=== PATIENT | female | born 1930 | race Caucasian/White ===

== ENCOUNTER 2016-12-19 16:19 | Emergency (ER) | payer MEDICARE, BC ==
[2016-12-19 20:37] VITALS: BP 138/69
--- NOTE | 2016-12-23 12:00 | ER ---
DATE SEEN: 12/19/2016 HISTORY OF PRESENT ILLNESS: This pleasant 86-year-old woman was walking, tripped on steps, and she fell down at home and struck her face. She was carrying a pillow at that time and she adroitly threw the pillow in front of her face so she did not smash her face and her hand. She has superficial abrasions to her knees. Did not lose consciousness. She has past medical history of using blood thinners, clopidogrel, for CVAs. PAST MEDICAL HISTORY: History of hypertension, dyslipidemia, Zocor-induced skeletal myopathy-was seen approximately less than a week ago and diagnosed by the keen observation of Dr. 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 She has glaucoma and atherosclerotic vascular disease and coronary artery disease. The patient denies compromised vision. Denies weakness upper and lower extremities, headache, neck stiffness. No shortness of breath, cough, chest pain, irregular heartbeat, abdominal discomfort, gastrointestinal symptoms, or symptoms except has occasional incontinence and denies frequency or urgency. Denies musculoskeletal complaints except for the abrasion to the knees after the fall. She has also mild hip discomfort. This has been chronic. MEDICATIONS: 1. Plavix 75 mg daily. 2. Vitamin D. 3. Carboxymethylcellulose (Refresh 0.5%). 4. Acetaminophen. 5. Latanoprost (Xalatan 0.005% ophthalmic solution). 6. Lasix. 7. Colace p.r.n. 8. Timolol-Timoptic 0.25% ophthalmic solution. 9. Oxybutynin for bladder irritability. 10.Bernard-3 fatty acids. 11.Multivitamins. 12.Lutein. 13.Metformin. 14.Tolterodine tartrate (Detrol) for spasm of bladder. PHYSICAL EXAMINATION: GENERAL: Alert woman. She is attended by her . Both have a great relationship. HEENT: She has prominent ecchymosis from the right nasal root to the infraorbital region. No nasal crepitus or nasal deviation. No intranasal bleeding. No turbinate swelling or asymmetry of the columella or nasal bone. No infraorbital tenderness or step-off. No crepitus. No EOMs compromised. Eye grounds normal appearance except for age. No hemorrhage or exudate. Vision is good. No diplopia. No tenderness of the upper brow. Hearing is slightly decreased but good. Pharynx without abnormality. No disruption of the teeth. No TMJ discomfort. No mandible discomfort. NECK: No bruits. No masses. No cervical adenopathy. LUNGS: Clear to auscultation with occasional rales at bases posterior. HEART: S1, S2. No irregular rate or rhythm. ABDOMEN: Soft. No guarding. No abdominal discomfort. Mild increased abdominal girth. No CVA percussion tenderness. MUSCULOSKELETAL: No cervical, thoracic, or lumbar spine pain. No spinous process or paraspinal muscle spasm. Gait slightly halting not unusual for age. Romberg negative. No past pointing. No pronator drift. No decreased muscle strength. Deep tendon reflexes upper extremities, 1+, absent lower extremities (even triceps are 1+). ASSESSMENT: 1. Contusion of face. CT performed to make sure she did not have a bleed in the brain with the use of clopidogrel. The CT was negative except for small vessel disease noted in the white matter. 2. Hypertension. 3. Facial ecchymoses secondary to subcutaneous bleed. 4. Mild tenderness to root of the nose. No evidence for fracture. 5. Dyslipidemia. 6. 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 7. Obesity. 8. Diabetes. PLAN: Follow up with doctor in a week. Use ibuprofen or Tylenol. The patient was seen at 1900 hours. There was a delay in seeing the patient since there was a cardiac arrest in which a patient was intubated and another critical patient. /[id number] ABRAHAN/ELIAZAR
== END 2016-12-19 20:10 | disposition home or self-care (01) ==
LOC: FB.ED 16:19
DX: S05.11XA Contusion of eyeball and orbital tissues, right eye, initial encounter (principal); I10 Essential (primary) hypertension; E78.5 Hyperlipidemia, unspecified; I25.10 Atherosclerotic heart disease of native coronary artery without angina pectoris; Z79.899 Other long term (current) drug therapy; W10.9XXA Fall (on) (from) unspecified stairs and steps, initial encounter
CPT/HCPCS: 70450; 99283

== ENCOUNTER 2017-01-05 07:50 | Observation (INO) | payer MEDICARE, BC ==
--- NOTE | 2017-01-05 08:33 | EDM.PDOC ---
ED HPI GENERAL MEDICAL PROBLEM - General Chief Complaint: Lower Extremity Injury/Pain Stated Complaint: FALL Time Seen by Provider: 01/05/17 07:50 Source of Information: Reports: Patient, EMS, Family History Limitations: Reports: No Limitations - History of Present Illness INITIAL COMMENTS - FREE TEXT/NARRATIVE: 86 y.o.w.f with multiple medical issues came to the ed after she fell over a carpet this am, unable to get up. Her , who has parkinson disease call 911. On arrival to the ed, pt was not able to ambulate due to pain and swelling of her left lower leg. Pt fell in the past. No N/V/D or palpitations or any other acute medical issue. Onset: Today Onset Date: 01/05/17 Onset Time: 06:00 Duration: Hour(s): Location: Reports: Head, Lower Extremity, Left Quality: Reports: Ache, Burning, Dull Severity: Mild Improves with: Reports: Cold Therapy, Rest Worsens with: Reports: Movement Context: Reports: Trauma (fall) Associated Symptoms: Reports: Headaches, Weakness left knee Pain Score (Numeric/FACES): 8 - Related Data Allergies Allergy/AdvReac Type Severity Reaction Status Date / Time No Known Allergies Allergy Verified 01/05/17 10:39 Home Meds: Home Meds Cholecalciferol (Vitamin D3) [Vitamin D3] 1,000 units PO DAILY 12/16/15 [History ] Clopidogrel [Plavix] 75 mg PO DAILY 12/16/15 [History] Docusate Sodium [Colace] 100 mg PO BID 12/16/15 [History] Furosemide [Lasix] 10 mg PO DAILY 12/16/15 [History] Latanoprost [Xalatan 0.005% Ophth Soln] 1 drop EYEBOTH BEDTIME 12/16/15 [History ] Multivitamin [One Daily] 1 tab PO DAILY 12/16/15 [History] [place]-3 Fatty Acids/Fish Oil [Fish Oil Concentrate Softgel] 720 mg PO DAILY 08/25 [History] Oxybutynin 2.5 mg PO BID 12/16/15 [History] Timolol Maleate [Timoptic 0.25% Ophth Soln] 1 drop EYEBOTH DAILY 12/16/15 [ History] metFORMIN [Glucophage] 500 mg PO DAILY 12/16/15 [History] Acetaminophen [Acetaminophen Extra Strength] 1,000 mg PO 08,14,21 01/05/17 [ History] Ubidecarenone [Co Q-10] 100 mg PO DAILY 01/05/17 [History] atorvaSTATin [Lipitor] 10 mg PO DAILY 01/05/17 [History] Past Medical History HEENT History: Reports: Cataract, Impaired Vision Cardiovascular History: Reports: High Cholesterol, Hypertension FLARE MAKER History: Reports: Other (See Below) Other OB/BYN History: four C section Musculoskeletal History: Reports: Arthritis 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 Neurological History: Reports: TIA Endocrine/Metabolic History: Reports: Diabetes, Type II Oncologic (Cancer) History: Reports: Breast, Other (See Below) Other Oncologic History: bladder - Infectious Disease History Infectious Disease History: Reports: Chicken Pox, Measles, Mumps - Past Surgical History HEENT Surgical History: Reports: Cataract Surgery, Oral Surgery GI Surgical History: Reports: Colonoscopy, Other (See Below) Female Surgical History: Reports: Mastectomy, Other (See Below) Other Female Surgeries/Procedures: bladder cancer Oncologic Surgical History: Reports: Biopsy of Breast, Mastectomy Social & Family History - Tobacco Use Smoking Status *Q: Never Smoker Second Hand Smoke Exposure: No - Caffeine Use Caffeine Use: Reports: Coffee - Recreational Drug Use Recreational Drug Use: No Review of Systems - Review of Systems Review Of Systems: See Below Constitutional: Reports: Weakness Eyes: Reports: No Symptoms Ears: Reports: No Symptoms Nose: Reports: No Symptoms Mouth/Throat: Reports: No Symptoms Respiratory: Reports: No Symptoms Cardiovascular: Reports: No Symptoms GI/Abdominal: Reports: No Symptoms Genitourinary: Reports: No Symptoms Musculoskeletal: Reports: Muscle Pain (left tibia) Skin: Reports: Bruising (SQ hematoma left lower leg), Other (ecchymosis) Neurological: Reports: No Symptoms Psychiatric: Reports: No Symptoms ED EXAM, GENERAL - Physical Exam Exam: See Below Exam Limited By: No Limitations General Appearance: Alert, WD/WN, Mild Distress, Obese Eye Exam: Bilateral Eye: Normal Inspection Ears: Normal External Exam Ear Exam: Bilateral Ear: Auricle Normal Nose: Normal Inspection Throat/Mouth: Normal Inspection, Normal Lips Head: Other (SQ hematoma occ. suly) Neck: Normal Inspection, Supple Respiratory/Chest: No Respiratory Distress, Lungs Clear Cardiovascular: Normal Peripheral Pulses, Regular Rate, Rhythm, No Edema Peripheral Pulses: 1+: Femoral (L), Femoral (R) GI/Abdominal: Normal Bowel Sounds, Soft, Non-Tender (Female) Exam: Deferred Rectal (Female) Exam: Deferred Back Exam: Normal Inspection, Decreased Range of Motion Extremities: Leg Pain (left ) Neurological: Alert, Oriented, CN II-XII Intact, Normal Cognition, Other ( unable to ambulate) Psychiatric: Normal Affect, Normal Mood Skin Exam: Ecchymosis (left low leg, latas pect) Lymphatic: No Adenopathy Course - Vital Signs Text/Narrative:: 86 y.o.w.f with multiple medical issues came to the ed after she fell over a carpet this am, unable to get up. Her , who has parkinson disease call 911. On arrival to the ed, pt was not able to ambulate due to pain and swelling of her left lower leg. Pt fell in the past. No N/V/D or palpitations or any other acute medical issue. Pt is on Plavix PE: SQ hematoma post suly, SQ hematoma left lower leg 15 cm X 9 cm, no open wounds Labs: WBC 12.1 BUN/CE elevated BUN 17 Cr 0.5 Imaging: CT head: SQ hematoma of occiput. Left T/F NAD Impression:Mechanical fall, SQ hematom mid occiput and left lower leg, unable to ambulate Tx: Motrin, ICE bag Reexam: Improved 10.15am Consultation : accepted pt for admission. OT/PT and SW consultations to be ordered Plan: Admit for OBS Last Recorded V/S: Last Vital Signs Temp 36.7 C 01/05/17 07:50 Pulse 80 01/05/17 10:30 Resp 18 01/05/17 10:30 BP 143/80 H 01/05/17 10:30 Pulse Ox 96 01/05/17 10:30 - Orders/Labs/Meds Orders: Active Orders 24 hr Category Date Time Status Patient Status [ADT] Routine ADT 01/05/17 10:08 Active Cooling Warming Measures [RC] .PRN Care 01/05/17 08:25 Active Oxygen Therapy [RC] PRN Care 01/05/17 10:08 Active Up With Assistance [RC] ASDIRECTED Care 01/05/17 10:08 Active Vital Signs [RC] 04,08,12,16,20,00 Care 01/05/17 10:08 Active Consult to Physical Therapy [PT Evaluation and Cons 01/05/17 10:15 Active Treatment] [CONS] Routine Consult to Leadership Recruiter [CONS] Routine Cons 01/05/17 10:15 Active OT Evaluation and Treatment [CONS] Routine Cons 01/05/17 10:15 Active Consistent Carbohydrate Diet [DIET] Diet 01/05/17 Breakfast Ordered Head wo Cont [CT] Stat Exams 01/05/17 08:50 Taken Acetaminophen/HYDROcodone [Parish 325-5 MG] Med 01/05/17 10:08 Active 1 tab PO Q4H PRN Ibuprofen [Motrin] Med 01/05/17 10:08 Active 600 mg PO Q6H PRN Ice Bag [Ice Therapy] [OM.PC] Routine Oth 01/05/17 08:25 Ordered Resuscitation Status Routine Resus Stat 01/05/17 10:08 Ordered Medication Orders Hydrocodone Bitart/Acetaminophen (Par[place] 325-5 Mg) 1 tab PO Q4H PRN PRN Reason: Pain (moderate 4-6) Ibuprofen (Motrin) 600 mg PO Q6H PRN PRN Reason: Pain (mild 1-3) Last Admin: 01/05/17 10:26 Dose: 600 mg Labs: Laboratory Tests 01/05/17 01/05/17 01/05/17 Range/Units 08:50 08:50 08:50 WBC 12.1 H (4.5-12.0) X10-3/uL RBC 4.72 (3.23-5.20) x10(6)uL Hgb 15.3 (11.5-15.5) g/dL Hct 44.7 (30.0-51.3) % MCV 94.8 (80-96) fL MCH 32.5 (27.7-33.6) pg MCHC 34.3 (32.2-35.4) g/dL RDW 12.5 (11.5-15.5) % Plt Count 235 (125-369) X10(3)uL MPV 7.5 (7.4-10.4) fL Neut % (Auto) 76.8 (46-82) % Lymph % (Auto) 11.0 L (13-37) % [place] % (Auto) 8.0 (4-12) % Eos % (Auto) 4 (1.0-5.0) % Baso % (Auto) 0 (0-2) % Neut # (Auto) 9.3 H (1.6-8.3) # Lymph # (Auto) 1.3 (0.6-5.0) # [place]ick # (Auto) 1.0 (0.0-1.3) # Eos # (Auto) 0.5 (0.0-0.8) # Baso # (Auto) 0.0 (0.0-0.2) # PT 10.4 (8.7-11.1) INR 1.03 (0.89-1.13) Sodium 137 (135-145) mmol/L Potassium 3.9 (3.5-5.3) mmol/L Chloride 103 (100-110) mmol/L Carbon Dioxide 26 (23-29) mmol/L BUN 17 (8-23) mg/dL Creatinine 0.5 L (0.6-1.3) mg/dL Est Cr Clr Drug Dosing 62.07 mL/min Estimated GFR (MDRD) > 60 (>60) BUN/Creatinine Ratio 34.0 H (9-20) Glucose 112 (80-116) mg/dL Calcium 8.9 (8.6-10.2) mg/dL B-Natriuretic Peptide (0-100) pg/mL 01/05/17 Range/Units 08:50 WBC (4.5-12.0) X10-3/uL RBC (3.23-5.20) x10(6)uL Hgb (11.5-15.5) g/dL Hct (30.0-51.3) % MCV (80-96) fL MCH (27.7-33.6) pg MCHC (32.2-35.4) g/dL RDW (11.5-15.5) % Plt Count (125-369) X10(3)uL MPV (7.4-10.4) fL Neut % (Auto) (46-82) % Lymph % (Auto) (13-37) % Maverick % (Auto) (4-12) % Eos % (Auto) (1.0-5.0) % Baso % (Auto) (0-2) % Neut # (Auto) (1.6-8.3) # Lymph # (Auto) (0.6-5.0) # Maverick # (Auto) (0.0-1.3) # Eos # (Auto) (0.0-0.8) # Baso # (Auto) (0.0-0.2) # PT (8.7-11.1) INR (0.89-1.13) Sodium (135-145) mmol/L Potassium (3.5-5.3) mmol/L Chloride (100-110) mmol/L Carbon Dioxide (23-29) mmol/L BUN (8-23) mg/dL Creatinine (0.6-1.3) mg/dL Est Cr Clr Drug Dosing mL/min Estimated GFR (MDRD) (>60) BUN/Creatinine Ratio (9-20) Glucose (80-116) mg/dL Calcium (8.6-10.2) mg/dL B-Natriuretic Peptide 68 (0-100) pg/mL Meds: Medications Generic Name Dose Route Start Last Admin Trade Name Freq PRN Reason Stop Dose Admin Hydrocodone Bitart/Acetaminophen 1 tab 01/05/17 10:08 [place] 325-5 Mg PO Q4H PRN Pain (moderate 4-6) Ibuprofen 600 mg 01/05/17 10:08 01/05/17 10:26 Motrin PO 600 mg Q6H PRN Administration Pain (mild 1-3) Departure - Departure Time of Disposition: 12:00 Disposition: Refer to Observation Condition: Fair Clinical Impression: Hematoma Fall Qualifiers: Encounter type: initial encounter Qualified Code(s): W19.XXXA - Unspecified fall, initial encounter - Discharge Information - My Orders Last 24 Hours: My Active Orders 01/05/17 08:25 Cooling Warming Measures [RC] .PRN Ice Bag [Ice Therapy] [OM.PC] Routine 01/05/17 08:50 Head wo Cont [CT] Stat 01/05/17 10:08 Patient Status [ADT] Routine Oxygen Therapy [RC] PRN Up With Assistance [RC] ASDIRECTED Vital Signs [RC] 04,08,12,16,20,00 Acetaminophen/HYDROcodone [Par[place] 325-5 MG] 1 tab PO Q4H PRN Ibuprofen [Motrin] 600 mg PO Q6H PRN Resuscitation Status Routine 01/05/17 10:15 Consult to Physical Therapy [PT Evaluation and Treatment] [CONS] Routine Consult to Leadership Recruiter [CONS] Routine OT Evaluation and Treatment [CONS] Routine 01/05/17 Breakfast Consistent Carbohydrate Diet [DIET] - Assessment/Plan Last 24 Hours: My Active Orders 01/05/17 08:25 Cooling Warming Measures [RC] .PRN Ice Bag [Ice Therapy] [OM.PC] Routine 01/05/17 08:50 Head wo Cont [CT] Stat 01/05/17 10:08 Patient Status [ADT] Routine Oxygen Therapy [RC] PRN Up With Assistance [RC] ASDIRECTED Vital Signs [RC] 04,08,12,16,20,00 Acetaminophen/HYDROcodone [Parish 325-5 MG] 1 tab PO Q4H PRN Ibuprofen [Motrin] 600 mg PO Q6H PRN Resuscitation Status Routine 01/05/17 10:15 Consult to Physical Therapy [PT Evaluation and Treatment] [CONS] Routine Consult to Leadership Recruiter [CONS] Routine OT Evaluation and Treatment [CONS] Routine 01/05/17 Breakfast Consistent Carbohydrate Diet [DIET]
[2017-01-05] MEDS ORDERED: Acetaminophen/HYDROcodone 325-5 MG Tab PO PRN (10:08)
[2017-01-05] MEDS: Ibuprofen 600 MG Tab PO PRN ×2 (10:26→21:52)
--- NOTE | 2017-01-05 11:28 | CR ---
INDICATION: Fell, swelling proximal lateral tibia and fibula. LEFT TIBIA AND FIBULA: Frontal and lateral views of the tibia and fibula revealed soft tissue swelling overlying the pretibial area anterolaterally. Degenerative changes are noted at the knee joint with loss of medial femorotibial joint space suggested. A definite acute fracture or dislocation was not identified. Somewhat demineralized appearance of the bony structures suggests the possibility of osteoporosis - correlate clinically. Degenerative changes are noted in the forefoot. IMPRESSION: 1. No acute fracture or dislocation. 2. Osteoporosis. 3. DJD. MTDD
--- NOTE | 2017-01-05 11:33 | CR ---
INDICATION: Pain, fall, swelling. LEFT KNEE: Three views of the left knee revealed moderate osteoarthritic changes with lateral patellofemoral joint space loss and medial femorotibial joint space loss. Hypertrophic changes are prominent at the medial femorotibial joint space intercondylar spines, moderate at the intercondylar notch, and moderate at the patellofemoral joint. Arterial calcifications are noted incidentally. A definite fracture or dislocation was not identified. IMPRESSION: 1. No acute fracture or dislocation. 2. Osteoarthritis. 3. ASD. MTDD
[2017-01-05] MEDS ORDERED: FLU Vacc QS 2017-18 (36mos UP)/PF 60 MCG/0.5 ML Syringe IM ONE (11:37)
--- NOTE | 2017-01-05 17:16 | PCM.HP ---
H&P History of Present Illness - General Date of Service: 01/05/17 Source of Information: Patient History Limitations: Reports: No Limitations - History of Present Illness Initial Comments - Free Text/Narative: This is 86-year-old female patient states she got up this morning. She went to the bathroom and then she just says she fell. She had her had and her left knee. She was not able to get up so they called the [facility]. has Parkinson's so he's not much of certified surgical tech/first assistant according to her. And was brought her in. She had a head CT was reported by the ER doc is negative, knee x-ray that was negative. She states she couldn't walk afterwards so she was admitted for observation. She lies been ill. She denies nasal congestion, sore throat, chest pain, palpitations, shortness of breath, diarrhea, abdominal pain, dysuria, pyuria, hematuria left knee Pain Score (Numeric/FACES): 8 - Related Data Allergies/Adverse Reactions: Allergies Allergy/AdvReac Type Severity Reaction Status Date / Time No Known Allergies Allergy Verified 01/05/17 10:39 Home Medications: Home Meds Cholecalciferol (Vitamin D3) [Vitamin D3] 1,000 units PO DAILY 12/16/15 [History ] Clopidogrel [Plavix] 75 mg PO DAILY 12/16/15 [History] Docusate Sodium [Colace] 100 mg PO BID 12/16/15 [History] Furosemide [Lasix] 10 mg PO DAILY 12/16/15 [History] Latanoprost [Xalatan 0.005% Ophth Soln] 1 drop EYEBOTH BEDTIME 12/16/15 [History ] Multivitamin [One Daily] 1 tab PO DAILY 12/16/15 [History] Max-3 Fatty Acids/Fish Oil [Fish Oil Concentrate Softgel] 720 mg PO DAILY 08/25 [History] Oxybutynin 2.5 mg PO BID 12/16/15 [History] Timolol Maleate [Timoptic 0.25% Ophth Soln] 1 drop EYEBOTH DAILY 12/16/15 [ History] metFORMIN [Glucophage] 500 mg PO DAILY 12/16/15 [History] Acetaminophen [Acetaminophen Extra Strength] 1,000 mg PO 08,14,21 01/05/17 [ History] Dorzolamide [Trusopt 2% Ophth Soln] 1 drop EYEBOTH BID 01/05/17 [History] Lutein 10 mg PO DAILY 01/05/17 [History] Propylene Glycol/Peg 400 [Systane 0.3-0.4% Eye Drops] 1 drop EYEBOTH BID [History] Ubidecarenone [Co Q-10] 100 mg PO DAILY 01/05/17 [History] atorvaSTATin [Lipitor] 10 mg PO DAILY 01/05/17 [History] Past Medical History HEENT History: Reports: Cataract, Impaired Vision Cardiovascular History: Reports: High Cholesterol, Hypertension Gastrointestinal History: Reports: Hiatal Hernia Genitourinary History: Reports: Urinary Incontinence STUNT PERFORMER History: Reports: Other (See Below) Other OB/BYN History: four C section Musculoskeletal History: Reports: Arthritis 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 Neurological History: Reports: TIA Endocrine/Metabolic History: Reports: Diabetes, Type II Oncologic (Cancer) History: Reports: Breast, Other (See Below) Other Oncologic History: bladder - Infectious Disease History Infectious Disease History: Reports: Chicken Pox, Measles, Mumps - Past Surgical History HEENT Surgical History: Reports: Cataract Surgery, Oral Surgery GI Surgical History: Reports: Colonoscopy, Other (See Below) Female Surgical History: Reports: Mastectomy, Other (See Below) Other Female Surgeries/Procedures: bladder cancer Oncologic Surgical History: Reports: Biopsy of Breast, Mastectomy Social & Family History - Family History Family Medical History: Noncontributory - Tobacco Use Smoking Status *Q: Never Smoker Second Hand Smoke Exposure: No - Caffeine Use Caffeine Use: Reports: Coffee - Recreational Drug Use Recreational Drug Use: No H&P Review of Systems - Review of Systems: Review Of Systems: See Below General: Reports: Weakness HEENT: Reports: No Symptoms Pulmonary: Reports: No Symptoms Cardiovascular: Reports: No Symptoms Gastrointestinal: Reports: No Symptoms Genitourinary: Reports: No Symptoms Musculoskeletal: Reports: Joint Swelling Skin: Reports: Bruising (From Plavix) Psychiatric: Reports: No Symptoms Neurological: Reports: Difficulty Walking Hematologic/Lymphatic: Reports: No Symptoms Immunologic: Reports: No Symptoms Exam - Exam Exam: See Below - Vital Signs Vital Signs: Last Vital Signs Temp 98.0 F 01/05/17 07:50 Pulse 80 01/05/17 10:30 Resp 18 01/05/17 10:30 BP 143/80 H 01/05/17 10:30 Pulse Ox 96 01/05/17 10:30 Weight: 151 lb 8 oz - Exam General: Alert, Oriented, Cooperative HEENT: Hearing Intact, Mucosa Moist & [place], Posterior Pharynx Clear, TMs Clear Neck: Supple, Trachea Midline Lungs: Clear to Auscultation, Normal Respiratory Effort. No: Crackles, Rales, Rhonchi Cardiovascular: Regular Rate, Regular Rhythm, Normal S1, Normal S2. No: Systolic Murmur, Diastolic Murmur GI/Abdominal Exam: Normal Bowel Sounds, Soft, Non-Tender, No Distention, No Abnormal Bruit, No Mass Back Exam: Normal Inspection, Full Range of Motion Extremities: Other (Left knee has some pain in palpation. Pain with range of motion.) Skin: Ecchymosis Neurological: Normal Speech, Normal Tone Neuro Extensive - Mental Status: Alert, Oriented x3, Normal Mood/Affect, Normal Cognition Psychiatric: Alert, Normal Affect, Normal Mood - Patient Data Result Diagrams: 01/05/17 08:50 01/05/17 08:50 *Q Meaningful Use (ADM) - VTE *Q VTE Criteria *Q: - Stroke *Q Stroke Criteria *Q: - AMI *Q AMI Criteria *Q: - Problem List (1) Contusion of left knee SNOMED Code(s): 77466235, 140598836 ICD Code: S80.02XA - CONTUSION OF LEFT KNEE, INITIAL ENCOUNTER Status: Acute Current Visit: Yes (2) Fall SNOMED Code(s): 1304321, 220301788 ICD Code: W19.XXXA - UNSPECIFIED FALL, INITIAL ENCOUNTER Status: Acute Current Visit: Yes Qualifiers: Encounter type: initial encounter Qualified Code(s): W19.XXXA - Unspecified fall, initial encounter Problem List Initiated/Reviewed/Updated: Yes Orders Last 24hrs: Medication Orders Hydrocodone Bitart/Acetaminophen ([place] 325-5 Mg) 1 tab PO Q4H PRN PRN Reason: Pain (moderate 4-6) Last Admin: 01/05/17 14:50 Dose: 1 tab Ibuprofen (Motrin) 600 mg PO Q6H PRN PRN Reason: Pain (mild 1-3) Last Admin: 01/05/17 10:26 Dose: 600 mg Assessment/Plan Comment:: 1. Admit for observation. 2. Hold medications until pharmacy can go over them. Does not think she needs tonight. 3. Control her pain. 4. OT/PT. 5. leadite worker did see her in regards to assisted living for them. 6. Reviewed labs with no UA was done so that will be done.
[2017-01-06 07:35] VITALS: BP 122/67
--- NOTE | 2017-01-06 08:12 | PCM.PN ---
- General Info Date of Service: 01/06/17 Admission Dx/Problem (Free Text): Patient states she feels good other than a little left knee pain. She is able to get up and walk with her walker. No chest pain, shortness of breath, dysuria , pyuria, hematuria - Patient Data Vitals - Most Recent: Last Vital Signs Temp 97.7 F 01/06/17 07:34 Pulse 76 01/06/17 07:34 Resp 16 01/06/17 07:34 BP 122/67 01/06/17 07:34 Pulse Ox 95 01/06/17 07:34 Weight - Most Recent: 151 lb 8 oz I&O - Last 24 Hours: Intake & Output 01/05/17 01/06/17 01/06/17 22:59 06:59 14:59 Output Total 200 Balance -200 Lab Results Last 24 Hours: Laboratory Results - last 24 hr 01/05/17 Range/Units 20:40 Urine Color Yellow (YELLOW) Urine Appearance Slightly cloudy (CLEAR) Urine pH 6.0 (5.0-6.5) Ur Specific [place] 1.015 (1.010-1.025) Urine Protein Negative (NEGATIVE) mg/dL Urine Glucose (UA) Normal (NEGATIVE) mg/dL Urine Ketones Negative (NEGATIVE) mg/dL Urine Occult Blood Large H (NEGATIVE) Urine Nitrite Negative (NEGATIVE) Urine Bilirubin Negative (NEGATIVE) Urine Urobilinogen Normal (NEGATIVE) mg/dL Ur Leukocyte Esterase Small H (NEGATIVE) Urine RBC 5-10 (0) Urine WBC 0-5 (0) Ur Squamous Epith Cells Few H (NS,R,O) Urine Bacteria Few H (NS) Med Orders - Current: Current Medications Hydrocodone Bitart/Acetaminophen ([place] 325-5 Mg) 1 tab PO Q4H PRN PRN Reason: Pain (moderate 4-6) Last Admin: 01/05/17 14:50 Dose: 1 tab Ibuprofen (Motrin) 600 mg PO Q6H PRN PRN Reason: Pain (mild 1-3) Last Admin: 01/05/17 21:52 Dose: 600 mg - Exam General: Alert, Oriented, Cooperative Lungs: Normal Respiratory Effort Extremities: Other (Left knee has some swelling and some pain on palpation.) Neurological: Normal Gait (With a walker.) Psy/Mental Status: Alert, Normal Affect, Normal Mood - Problem List & Annotations (1) Contusion of left knee SNOMED Code(s): 96197326, 583502187 Code(s): S80.02XA - CONTUSION OF LEFT KNEE, INITIAL ENCOUNTER Status: Acute Current Visit: Yes (2) Fall SNOMED Code(s): 0143834, 742839195 Code(s): W19.XXXA - UNSPECIFIED FALL, INITIAL ENCOUNTER Status: Acute Current Visit: Yes Qualifiers: Encounter type: initial encounter Qualified Code(s): W19.XXXA - Unspecified fall, initial encounter - Problem List Review Problem List Initiated/Reviewed/Updated: Yes - Plan Plan:: 1. Discharge to home today with PT/OT and home health.
--- NOTE | 2017-01-06 08:20 | PCM.DCSUM1 ---
Discharge Summary - Hospital Course Free Text/Narrative:: Hospital course-her urine shows a little bit hematuria. She is on Plavix. She denies dysuria, pyuria, hematuria. No white cells or leukocytes in the urine. Patient had the left knee pain. Initially she could walk but later on she was able to get up and walk to the bathroom and then down the torres with a walker. Discharge to home with home health, PT/OT. I encouraged her to look for assisted living. Recheck her in 7-10 days with a UA. Brief History: This is 86-year-old female patient states she got up this morning. She went to the bathroom and then she just says she fell. She had her had and her left knee. She was not able to get up so they called the [facility]. 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 And was brought her in. She had a head CT was reported by the ER doc is negative, knee x -ray that was negative. She states she couldn't walk afterwards so she was admitted for observation. She lies been ill. She denies nasal congestion, sore throat, chest pain, palpitations, shortness of breath, diarrhea, abdominal pain , dysuria, pyuria, hematuria - Discharge Data Discharge Date: 01/06/17 Discharge Disposition: Home, W Home Health Agency 06 Condition: Good - Discharge Diagnosis/Problem(s) (1) Contusion of left knee SNOMED Code(s): 64883237, 417226834 ICD Code: S80.02XA - CONTUSION OF LEFT KNEE, INITIAL ENCOUNTER Status: Acute Current Visit: Yes (2) Fall SNOMED Code(s): 2903781, 975106378 ICD Code: W19.XXXA - UNSPECIFIED FALL, INITIAL ENCOUNTER Status: Acute Current Visit: Yes Qualifiers: Encounter type: initial encounter Qualified Code(s): W19.XXXA - Unspecified fall, initial encounter (3) Microscopic hematuria SNOMED Code(s): 499225611 ICD Code: R31.29 - OTHER MICROSCOPIC HEMATURIA Status: Acute Current Visit: Yes - Patient Instructions Diet: Diabetic Diet Activity: As Tolerated Driving: Do Not Drive Showering/Bathing: May Shower Notify Provider of: Increased Pain Other/Special Instructions: 1. Recheck with Dr. Clio 7-10 days with a UA. 2. Home health, PT, OT for strengthening, coordination training, ADL training, home safety, med management. - Discharge Plan Prescriptions/Med Rec: traMADol [Ultram] 50 mg PO Q6H PRN #40 tab PRN Reason: Pain Home Medications: Home Meds Cholecalciferol (Vitamin D3) [Vitamin D3] 1,000 units PO DAILY 12/16/15 [History ] Clopidogrel [Plavix] 75 mg PO DAILY 12/16/15 [History] Docusate Sodium [Colace] 100 mg PO BID 12/16/15 [History] Furosemide [Lasix] 10 mg PO DAILY 12/16/15 [History] Latanoprost [Xalatan 0.005% Ophth Soln] 1 drop EYEBOTH BEDTIME 12/16/15 [History ] Multivitamin [One Daily] 1 tab PO DAILY 12/16/15 [History] [place]-3 Fatty Acids/Fish Oil [Fish Oil Concentrate Softgel] 720 mg PO DAILY 08/25 [History] Oxybutynin 2.5 mg PO BID 12/16/15 [History] Timolol Maleate [Timoptic 0.25% Ophth Soln] 1 drop EYEBOTH DAILY 12/16/15 [ History] metFORMIN [Glucophage] 500 mg PO DAILY 12/16/15 [History] Acetaminophen [Acetaminophen Extra Strength] 1,000 mg PO 08,14,21 01/05/17 [ History] Dorzolamide [Trusopt 2% Ophth Soln] 1 drop EYEBOTH BID 01/05/17 [History] Lutein 10 mg PO DAILY 01/05/17 [History] Propylene Glycol/Peg 400 [Systane 0.3-0.4% Eye Drops] 1 drop EYEBOTH BID [History] Ubidecarenone [Co Q-10] 100 mg PO DAILY 01/05/17 [History] atorvaSTATin [Lipitor] 10 mg PO DAILY 01/05/17 [History] traMADol [Ultram] 50 mg PO Q6H PRN #40 tab 01/06/17 [Rx] Forms: ED Department Discharge Referrals: Jose Miguel Merino MD [Primary Care Provider] - - Discharge Summary/Plan Comment DC Time >30 min.: No - Patient Data Vitals - Most Recent: Last Vital Signs Temp 97.7 F 01/06/17 07:34 Pulse 76 01/06/17 07:34 Resp 16 01/06/17 07:34 BP 122/67 01/06/17 07:34 Pulse Ox 95 01/06/17 07:34 Weight - Most Recent: 151 lb 8 oz I&O - Last 24 hours: Intake & Output 01/05/17 01/06/17 01/06/17 22:59 06:59 14:59 Output Total 200 Balance -200 Lab Results - Last 24 hrs: Laboratory Results - last 24 hr 01/05/17 Range/Units 20:40 Urine Color Yellow (YELLOW) Urine Appearance Slightly cloudy (CLEAR) Urine pH 6.0 (5.0-6.5) Ur Specific [place] 1.015 (1.010-1.025) Urine Protein Negative (NEGATIVE) mg/dL Urine Glucose (UA) Normal (NEGATIVE) mg/dL Urine Ketones Negative (NEGATIVE) mg/dL Urine Occult Blood Large H (NEGATIVE) Urine Nitrite Negative (NEGATIVE) Urine Bilirubin Negative (NEGATIVE) Urine Urobilinogen Normal (NEGATIVE) mg/dL Ur Leukocyte Esterase Small H (NEGATIVE) Urine RBC 5-10 (0) Urine WBC 0-5 (0) Ur Squamous Epith Cells Few H (NS,R,O) Urine Bacteria Few H (NS) Med Orders - Current: Current Medications Hydrocodone Bitart/Acetaminophen ([place] 325-5 Mg) 1 tab PO Q4H PRN PRN Reason: Pain (moderate 4-6) Last Admin: 01/05/17 14:50 Dose: 1 tab Ibuprofen (Motrin) 600 mg PO Q6H PRN PRN Reason: Pain (mild 1-3) Last Admin: 01/05/17 21:52 Dose: 600 mg *Q Meaningful Use (DIS) - VTE *Q VTE Criteria *Q: - Stroke *Q Stroke Criteria *Q: - AMI *Q AMI Criteria *Q:
== END 2017-01-06 09:50 | disposition home health service (06) ==
LOC: FB.ED 07:50 → FB.MS 10:26
PROVIDERS: ADMIT Family Medicine; ATTEND Family Medicine
DX: S80.02XA Contusion of left knee, initial encounter (principal); R31.29 Other microscopic hematuria; I10 Essential (primary) hypertension; E78.00 Pure hypercholesterolemia, unspecified; E11.9 Type 2 diabetes mellitus without complications; W19.XXXA Unspecified fall, initial encounter; Z79.84 Long term (current) use of oral hypoglycemic drugs; Z79.899 Other long term (current) drug therapy; Z98.890 Other specified postprocedural states; Z23 Encounter for immunization
CPT/HCPCS: 36415; 70450; 73562; 73590; 80048; 81001; 83880; 85025; 85610; 97165; 99217; 99219; 99285; A9270; G0008; G0378; 90686

== ENCOUNTER 2017-03-08 12:29 | Emergency (ER) | payer MEDICARE, BC ==
[2017-03-08] MEDS ORDERED: Sodium Chloride 0.9% 10 ML Syringe FLUSH PRN (12:35)
--- NOTE | 2017-03-08 12:38 | EDM.PDOC ---
ED HPI GENERAL MEDICAL PROBLEM - General Stated Complaint: ABD PAIN Time Seen by Provider: 03/08/17 12:29 Source of Information: Reports: Patient History Limitations: Reports: No Limitations - History of Present Illness INITIAL COMMENTS - FREE TEXT/NARRATIVE: 86 years old w f with H/O bladder CA, Dx'd 5 years ago, came to the ed by EMS due to abd. pain and an episode of chest pain. ECG was per transfered to the ed while the EMS was at the scene which showed NSR without any ST/T wave changes. As the pt arrived here in the ed, Pt c/o lover abd. pain, no CP. Her BP was 169/69, ECG showed NSR. No N/V/D, no dizziness or any other acute medical issues. 169/63 HR 69 Temp 36.4 RR 17 Pulse ox 99% on RA Onset: Today Onset Date: 03/08/17 Onset Time: 11:00 Duration: Minutes: Location: Reports: Chest, Abdomen Quality: Reports: Burning Severity: Mild Improves with: Reports: Rest Worsens with: Reports: Movement Context: Reports: Other (H/O bladder CA) Shoulder Pain Score (Numeric/FACES): 6 - Related Data Allergies Allergy/AdvReac Type Severity Reaction Status Date / Time No Known Allergies Allergy Verified 03/08/17 12:38 Home Meds: Home Meds Cholecalciferol (Vitamin D3) [Vitamin D3] 1,000 units PO DAILY 12/16/15 [History ] Clopidogrel [Plavix] 75 mg PO DAILY 12/16/15 [History] Docusate Sodium [Colace] 100 mg PO DAILY 12/16/15 [History] Furosemide [Lasix] 10 mg PO DAILY 12/16/15 [History] Latanoprost [Xalatan 0.005% Ophth Soln] 1 drop EYEBOTH BEDTIME 12/16/15 [History ] Multivitamin [One Daily] 1 tab PO DAILY 12/16/15 [History] [place]-3 Fatty Acids/Fish Oil [Fish Oil Concentrate Softgel] 720 mg PO DAILY 08/25 [History] Timolol Maleate [Timoptic 0.25% Ophth Soln] 1 drop EYEBOTH DAILY 12/16/15 [ History] metFORMIN [Glucophage] 500 mg PO DAILY 12/16/15 [History] Acetaminophen [Acetaminophen Extra Strength] 1,000 mg PO 08,14,21 01/05/17 [ History] Dorzolamide [Trusopt 2% Ophth Soln] 1 drop EYEBOTH BID 01/05/17 [History] Propylene Glycol/Peg 400 [Systane 0.3-0.4% Eye Drops] 1 drop EYEBOTH BID [History] Ubidecarenone [Co Q-10] 100 mg PO DAILY 01/05/17 [History] atorvaSTATin [Lipitor] 10 mg PO DAILY 01/05/17 [History] traMADol [Ultram] 50 mg PO Q6H PRN #40 tab 01/06/17 [Rx] Ciprofloxacin HCl [Cipro] 500 mg PO BID #20 tablet 03/08/17 [Rx] Past Medical History HEENT History: Reports: Cataract, Impaired Vision Cardiovascular History: Reports: High Cholesterol, Hypertension Gastrointestinal History: Reports: Hiatal Hernia Genitourinary History: Reports: Urinary Incontinence HEALTH INFORMATION INTERNSHIP History: Reports: Other (See Below) Other OB/BYN History: four C section Musculoskeletal History: Reports: Arthritis 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 Neurological History: Reports: TIA Endocrine/Metabolic History: Reports: Diabetes, Type II Oncologic (Cancer) History: Reports: Breast, Other (See Below) Other Oncologic History: bladder - Infectious Disease History Infectious Disease History: Reports: Chicken Pox, Measles, Mumps - Past Surgical History HEENT Surgical History: Reports: Cataract Surgery, Oral Surgery GI Surgical History: Reports: Colonoscopy, Other (See Below) Female Surgical History: Reports: Mastectomy, Other (See Below) Other Female Surgeries/Procedures: bladder cancer Oncologic Surgical History: Reports: Biopsy of Breast, Mastectomy Social & Family History - Family History Family Medical History: Noncontributory - Tobacco Use Smoking Status *Q: Never Smoker Second Hand Smoke Exposure: No - Caffeine Use Caffeine Use: Reports: Coffee - Recreational Drug Use Recreational Drug Use: No ED ROS GENERAL - Review of Systems Review Of Systems: See Below Constitutional: Reports: No Symptoms HEENT: Reports: No Symptoms Respiratory: Reports: No Symptoms Cardiovascular: Reports: No Symptoms Endocrine: Reports: No Symptoms GI/Abdominal: Reports: Abdominal Pain : Reports: Dysuria Musculoskeletal: Reports: No Symptoms Skin: Reports: No Symptoms Neurological: Reports: No Symptoms Psychiatric: Reports: No Symptoms Hematologic/Lymphatic: Reports: No Symptoms Immunologic: Reports: No Symptoms ED EXAM, GI/ABD - Physical Exam Exam: See Below Exam Limited By: No Limitations General Appearance: Alert, WD/WN, Mild Distress, Obese Eyes: Bilateral: Normal Appearance Ears: Normal External Exam Nose: Normal Inspection, Normal Mucosa Throat/Mouth: Normal Inspection, Normal Lips Head: Atraumatic, Normocephalic Neck: Normal Inspection, Supple, Non-Tender Respiratory/Chest: No Respiratory Distress, Lungs Clear Cardiovascular: Normal Peripheral Pulses GI/Abdominal Exam: Normal Bowel Sounds, Tender (suprapubic) (Female) Exam: Normal External Exam Rectal (Female) Exam: Deferred Back Exam: Normal Inspection Extremities: Normal Inspection, Normal Range of Motion, Non-Tender, No Pedal Edema Neurological: Alert, Oriented, CN II-XII Intact, Normal Cognition, Normal Gait Psychiatric: Normal Affect, Normal Mood Skin Exam: Warm, Dry, Intact, Normal Color, No Rash Lymphatic: No Adenopathy EKG INTERPRETATION EKG Date: 03/08/17 Time: 13:05 Rhythm: NSR Rate (Beats/Min): 77 [place]: Normal P-Wave: Present QRS: Normal ST-T: Normal QT: Normal Comparison: NA - No Prior EKG Course - Vital Signs Text/Narrative:: 86 years old w f with H/O bladder CA, Dx'd 5 years ago, came to the ed by EMS due to abd. pain and an episode of chest pain. ECG was per transfered to the ed while the EMS was at the scene which showed NSR without any ST/T wave changes. As the pt arrived here in the ed, Pt c/o lover abd. pain, no CP. Her BP was 169/69, ECG showed NSR. No N/V/D, no dizziness or any other acute medical issues. 169/63 HR 69 Temp 36.4 RR 17 Pulse ox 99% on RA PE: Generalized abd pain, more so lower abd. Imaging: Not indicated Labs: CBC nl Troponin 0.0017 GFR > 60 Na 145 K 3.7 BUN 19 Cr. 0.7 UA for UTI with hematuria. Impression: UTI with hematuria, H/O Bladder CA Tx: Levoquine Reexam: Pt had no pain, was ambulating fine, ready to be discharged. I have spoken with her daughter in law on the phone as well. Pt's was present. Plan: D/C with instructions Last Recorded V/S: Last Vital Signs Temp 36.4 C 03/08/17 12:40 Pulse 70 03/08/17 12:52 Resp 17 03/08/17 12:52 BP 134/69 03/08/17 12:52 Pulse Ox 96 03/08/17 12:52 - Orders/Labs/Meds Orders: Active Orders 24 hr Category Date Time Status EKG Documentation Completion [RC] ASDIRECTED Care 03/08/17 12:36 Active CULTURE URINE [RM] Stat Lab 03/08/17 15:27 Received Peripheral IV Insertion Adult [OM.PC] Routine Oth 03/08/17 12:35 Ordered EKG 12 Lead [EK] Routine Ther 03/08/17 12:35 Ordered Labs: Laboratory Tests 03/08/17 03/08/17 03/08/17 Range/Units 12:50 12:50 12:50 WBC 7.5 (4.5-12.0) X10-3/uL RBC 4.71 (3.23-5.20) x10(6)uL Hgb 15.1 (11.5-15.5) g/dL Hct 44.3 (30.0-51.3) % MCV 94.1 (80-96) fL MCH 32.2 (27.7-33.6) pg MCHC 34.2 (32.2-35.4) g/dL RDW 12.6 (11.5-15.5) % Plt Count 264 (125-369) X10(3)uL MPV 8.1 (7.4-10.4) fL Neut % (Auto) 76.6 (46-82) % Lymph % (Auto) 10.7 L (13-37) % [place] % (Auto) 6.8 (4-12) % Eos % (Auto) 6 H (1.0-5.0) % Baso % (Auto) 0 (0-2) % Neut # (Auto) 5.8 (1.6-8.3) # Lymph # (Auto) 0.8 (0.6-5.0) # [place] # (Auto) 0.5 (0.0-1.3) # Eos # (Auto) 0.4 (0.0-0.8) # Baso # (Auto) 0.0 (0.0-0.2) # PT 10.4 (8.7-11.1) INR 1.03 (0.89-1.13) Sodium 142 (135-145) mmol/L Potassium 3.9 (3.5-5.3) mmol/L Chloride 104 (100-110) mmol/L Carbon Dioxide 27 (21-32) mmol/L BUN 19 H (7-18) mg/dL Creatinine 0.7 (0.55-1.02) mg/dL Est Cr Clr Drug Dosing 42.20 mL/min Estimated GFR (MDRD) > 60 (>60) BUN/Creatinine Ratio 27.1 H (9-20) Glucose 126 H (80-116) mg/dL Calcium 8.8 (8.6-10.2) mg/dL Total Bilirubin 0.9 (0.1-1.3) mg/dL Direct Bilirubin 0.53 H (0.10-0.20) mg/dL AST 61 H (5-25) IU/L ALT 33 (12-36) U/L Alkaline Phosphatase 109 (56-112) IU/L Troponin I (<0.017-0.056) ng/mL Total Protein 7.0 (6.0-8.0) g/dL Albumin 3.6 (3.2-4.6) g/dL Amylase 65 (25-115) U/L Urine Color (YELLOW) Urine Appearance (CLEAR) Urine pH (5.0-6.5) Ur Specific [place] (1.010-1.025) Urine Protein (NEGATIVE) mg/dL Urine Glucose (UA) (NEGATIVE) mg/dL Urine Ketones (NEGATIVE) mg/dL Urine Occult Blood (NEGATIVE) Urine Nitrite (NEGATIVE) Urine Bilirubin (NEGATIVE) Urine Urobilinogen (NEGATIVE) mg/dL Ur Leukocyte Esterase (NEGATIVE) Urine RBC (0) Urine WBC (0) Ur Squamous Epith Cells (NS,R,O) Urine Bacteria (NS) 03/08/17 03/08/17 Range/Units 12:50 15:27 WBC (4.5-12.0) X10-3/uL RBC (3.23-5.20) x10(6)uL Hgb (11.5-15.5) g/dL Hct (30.0-51.3) % MCV (80-96) fL MCH (27.7-33.6) pg MCHC (32.2-35.4) g/dL RDW (11.5-15.5) % Plt Count (125-369) X10(3)uL MPV (7.4-10.4) fL Neut % (Auto) (46-82) % Lymph % (Auto) (13-37) % [place] % (Auto) (4-12) % Eos % (Auto) (1.0-5.0) % Baso % (Auto) (0-2) % Neut # (Auto) (1.6-8.3) # Lymph # (Auto) (0.6-5.0) # [place] # (Auto) (0.0-1.3) # Eos # (Auto) (0.0-0.8) # Baso # (Auto) (0.0-0.2) # PT (8.7-11.1) INR (0.89-1.13) Sodium (135-145) mmol/L Potassium (3.5-5.3) mmol/L Chloride (100-110) mmol/L Carbon Dioxide (21-32) mmol/L BUN (7-18) mg/dL Creatinine (0.55-1.02) mg/dL Est Cr Clr Drug Dosing mL/min Estimated GFR (MDRD) (>60) BUN/Creatinine Ratio (9-20) Glucose (80-116) mg/dL Calcium (8.6-10.2) mg/dL Total Bilirubin (0.1-1.3) mg/dL Direct Bilirubin (0.10-0.20) mg/dL AST (5-25) IU/L ALT (12-36) U/L Alkaline Phosphatase (56-112) IU/L Troponin I < 0.017 L (<0.017-0.056) ng/mL Total Protein (6.0-8.0) g/dL Albumin (3.2-4.6) g/dL Amylase (25-115) U/L Urine Color Yellow (YELLOW) Urine Appearance Cloudy (CLEAR) Urine pH 6.5 (5.0-6.5) Ur Specific [place] 1.015 (1.010-1.025) Urine Protein 30 H (NEGATIVE) mg/dL Urine Glucose (UA) Normal (NEGATIVE) mg/dL Urine Ketones Negative (NEGATIVE) mg/dL Urine Occult Blood Large H (NEGATIVE) Urine Nitrite Negative (NEGATIVE) Urine Bilirubin Negative (NEGATIVE) Urine Urobilinogen 1 H (NEGATIVE) mg/dL Ur Leukocyte Esterase Large H (NEGATIVE) Urine RBC >100 H (0) Urine WBC >100 H (0) Ur Squamous Epith Cells Few H (NS,R,O) Urine Bacteria Many H (NS) Meds: Medications Discontinued Medications Generic Name Dose Route Start Last Admin Trade Name Freq PRN Reason Stop Dose Admin Levofloxacin 500 mg 03/08/17 15:55 03/08/17 16:04 Levaquin PO 03/08/17 15:56 500 mg ONETIME STA Administration Sodium Chloride 10 ml 03/08/17 12:35 Saline Flush FLUSH ASDIRECTED PRN Keep Vein Open Departure - Departure Time of Disposition: 16:13 Disposition: Home, Self-Care 01 Condition: Good Clinical Impression: UTI (urinary tract infection) Qualifiers: Urinary tract infection type: acute cystitis Hematuria presence: with hematuria Qualified Code(s): N30.01 - Acute cystitis with hematuria - Discharge Information Prescriptions: Ciprofloxacin HCl [Cipro] 500 mg PO BID #20 tablet Instructions: Urinary Tract Infection, Adult, [id number], Levofloxacin tablets Referrals: Jose Miguel Merino MD [Primary Care Provider] - Forms: ED Department Discharge Additional Instructions: Please increase water intake, please take cipro as recommended, please follow up with your doctor in 4 days, please come back to the ed if your symptoms get worse. - My Orders Last 24 Hours: My Active Orders 03/08/17 12:35 Peripheral IV Insertion Adult [OM.PC] Routine EKG 12 Lead [EK] Routine 03/08/17 12:36 EKG Documentation Completion [RC] ASDIRECTED 03/08/17 15:27 CULTURE URINE [RM] Stat - Assessment/Plan Last 24 Hours: My Active Orders 03/08/17 12:35 Peripheral IV Insertion Adult [OM.PC] Routine EKG 12 Lead [EK] Routine 03/08/17 12:36 EKG Documentation Completion [RC] ASDIRECTED 03/08/17 15:27 CULTURE URINE [RM] Stat
[2017-03-08 12:54] VITALS: BP 134/69
[2017-03-08] MEDS ORDERED: Levofloxacin 500 MG Tab PO STA (15:55)
== END 2017-03-08 16:35 | disposition home or self-care (01) ==
LOC: FB.ED 12:29
DX: N30.01 Acute cystitis with hematuria (principal); I10 Essential (primary) hypertension; E78.00 Pure hypercholesterolemia, unspecified; E11.9 Type 2 diabetes mellitus without complications; Z85.51 Personal history of malignant neoplasm of bladder; Z85.3 Personal history of malignant neoplasm of breast; Z79.84 Long term (current) use of oral hypoglycemic drugs; Z79.02 Long term (current) use of antithrombotics/antiplatelets; Z79.899 Other long term (current) drug therapy
CPT/HCPCS: 36415; 80048; 80076; 81001; 82150; 84484; 85025; 85610; 87086; 93005; 99285; A9270; 99284

== ENCOUNTER 2017-09-19 12:15 | Emergency (ER) | payer MEDICARE, BC ==
[2017-09-19 14:38] VITALS: BP 133/46
--- NOTE | 2017-09-20 11:20 | ER ---
DATE SEEN: 09/19/2017 TIME SEEN: The patient was seen at 1330 hours. HISTORY OF PRESENT ILLNESS: This is a pleasant 87-year-old woman who was brought in by her daughter to evaluate for possible urinary tract infection. She has multiple urinary tract infections. The daughter came from [place]. Both were headed to a wedding, but felt she was symptomatic with prsesure in the lower bladder. This has been a problem. On 3 occasions she has been hospitalized and several of those have been septic because she had a bladder infection. She has previous bladder cancer and breast cancer. She is to be following up with the urologist next week. She denies fever; however, she felt warm. She did not take her temperature. REVIEW OF SYSTEMS: HEENT: Wears glasses, decreased hearing. No difficulty swallowing or sore throat or sinus pressure or discharge. NECK: No neck pain. CARDIORESPIRATORY: Denies chest pain, irregular heartbeat, but she has cough on and on, that is baseline for her and unchanged and dyspnea on exertion, which is baseline also. GI: Denies diarrhea, constipation, blood in the stool, black tarry stool, reflux, or hepatitis. She notes she has no difficulty swallowing. She is eating satisfactorily. She uses fiber and another stool softener and has a stool daily. MUSCULOSKELETAL: She has mild arthritis in legs but is fairly active. She has fallen on occasion. She has had mini strokes - TIAs. No heart attacks and has had previous breast cancer and bladder cancer surgery. She had more aching in lower abdomen today. Last antibiotic she had for urinary tract infection was between April and June of 2017. No associated fever today. The patient denies any incontinence. She uses oxybutynin, which prevents her from having incontinence. ALLERGIES: She has a history of itching with ciprofloxacin. CURRENT MEDICATIONS: 1. Vitamin D. 2. Acetaminophen. 3. CoQ10. 4. Timolol maleate for cataracts 0.25%, both eyes daily. 5. Propylene glycol, both eyes b.i.d. 6. [place]-3 fatty acid fish oil concentrate 720 mg daily. 7. Multivitamins 1 daily. 8. Xalatan 0.005% ophthalmic solution at night, both eyes. 9. Lasix 10 mg daily. 10.Trusopt 2% one drop b.i.d. 11.Colace. 12.Clopidogrel. 13.Tramadol. 14.Metformin 500 mg daily. 15.Atorvastatin 10 mg daily. PHYSICAL EXAMINATION: VITAL SIGNS: Blood pressure 155/62, heart rate 57, respirations 20, oxygen saturation 100% on room air, and mean arterial pressure is 93 with temperature 36.4 degrees Centigrade. BMI is 29.3 kg/m2. GENERAL: Alert woman, who is lying in bed. HEENT: She has a moist pack on her forehead. PERRLA intact. Pharynx without abnormality. Mouth, mucosa is moist. NECK: No bruits. No thyromegaly or masses in the neck. No tracheal tug. LUNGS: Clear without rales, rhonchi, or wheezes. HEART: S1, S2. No irregular rate and rhythm. ABDOMEN: Soft. No guarding. No abdominal discomfort. She has increased abdominal girth. Scars noted. Mild suprapubic discomfort. Bowel sounds slightly increased. No CVA percussion tenderness. PELVIC: Not performed. LOWER EXTREMITIES: No pedal edema. She has definite diabetic peripheral neuropathy with very sensitive ankle distribution of painful ankles with digital pressure. Dorsalis pedis slightly decreased. Mild stasis dermatitis in lower extremities. Able to move her knees and hips without discomfort, but has mild restriction. LABORATORY DATA: Urinalysis, large leukocyte esterase, 10-20 rbc's, greater than 100 wbc's, moderate bacteria, moderate occult blood, specific gravity 1.015, and pH 8. ASSESSMENT: 1. Urinary tract infection. 2. History of sepsis in the past with urinary tract infection. 3. Status post bladder cancer treatment and surgery and breast cancer treatment with left mastectomy. 4. History of transient ischemic attacks. 5. Hypertension, treated. 6. Cataracts removal with glaucoma. 7. Frequent urinary tract infection history. 8. No history of incontinence. 9. History of itching with ciprofloxacin. 10.Type 2 diabetes, stable on metformin. 11.Obesity. PLAN: Keflex 500 mg t.i.d., 21 tablets. Follow up with doctor in a week. Urine culture results pending. /[id number] ABRAHAN/JENNIFERL
== END 2017-09-19 14:25 | disposition home or self-care (01) ==
LOC: FB.ED 12:15
DX: N39.0 Urinary tract infection, site not specified (principal); I10 Essential (primary) hypertension; E11.9 Type 2 diabetes mellitus without complications; Z79.84 Long term (current) use of oral hypoglycemic drugs; E66.9 Obesity, unspecified; Z86.73 Personal history of transient ischemic attack (TIA), and cerebral infarction without residual deficits; Z87.440 Personal history of urinary (tract) infections; Z86.19 Personal history of other infectious and parasitic diseases; Z79.899 Other long term (current) drug therapy; Z68.29 Body mass index [BMI] 29.0-29.9, adult
CPT/HCPCS: 81001; 87086; 99283

== ENCOUNTER 2017-10-30 10:30 | Emergency (ER) | payer MEDICARE, BC ==
--- NOTE | 2017-10-30 11:50 | EDM.PDOC ---
ED HPI GENERAL MEDICAL PROBLEM - General Chief Complaint: Genitourinary Problem Stated Complaint: POSS URINARY INFECTION Time Seen by Provider: 10/30/17 11:45 Source of Information: Reports: Patient History Limitations: Reports: No Limitations - History of Present Illness INITIAL COMMENTS - FREE TEXT/NARRATIVE: Presents with urinary frequency and right lower back pain x 2 weeks. Per daughter, patient was confused yesterday. Denies abdominal pain, F/C, or N/V. History of bladder CA. - Related Data Allergies Allergy/AdvReac Type Severity Reaction Status Date / Time No Known Allergies Allergy Verified 09/19/17 12:36 Home Meds: Home Meds Cholecalciferol (Vitamin D3) [Vitamin D3] 1,000 units PO DAILY 12/16/15 [History ] Clopidogrel [Plavix] 75 mg PO DAILY 12/16/15 [History] Docusate Sodium [Colace] 100 mg PO DAILY 12/16/15 [History] Furosemide [Lasix] 10 mg PO DAILY 12/16/15 [History] Latanoprost [Xalatan 0.005% Ophth Soln] 1 drop EYEBOTH BEDTIME 12/16/15 [History ] Multivitamin [One Daily] 1 tab PO DAILY 12/16/15 [History] [place]-3 Fatty Acids/Fish Oil [Fish Oil Concentrate Softgel] 720 mg PO DAILY 08/25 [History] Timolol Maleate [Timoptic 0.25% Ophth Soln] 1 drop EYEBOTH DAILY 12/16/15 [ History] metFORMIN [Glucophage] 500 mg PO DAILY 12/16/15 [History] Acetaminophen [Acetaminophen Extra Strength] 1,000 mg PO 08,14,21 01/05/17 [ History] Dorzolamide [Trusopt 2% Ophth Soln] 1 drop EYEBOTH BID 01/05/17 [History] Propylene Glycol/Peg 400 [Systane 0.3-0.4% Eye Drops] 1 drop EYEBOTH BID [History] atorvaSTATin [Lipitor] 10 mg PO 1500 01/05/17 [History] traMADol [Ultram] 50 mg PO Q6H PRN #40 tab 01/06/17 [Rx] Ciprofloxacin HCl [Cipro] 250 mg PO BID 10 Days #20 tablet 10/30/17 [Rx] Past Medical History HEENT History: Reports: Cataract, Impaired Vision Cardiovascular History: Reports: High Cholesterol, Hypertension Gastrointestinal History: Reports: Hiatal Hernia Genitourinary History: Reports: Urinary Incontinence. 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 Neurological History: Reports: TIA Endocrine/Metabolic History: Reports: Diabetes, Type II Oncologic (Cancer) History: Reports: Breast, Other (See Below) Other Oncologic History: bladder - Infectious Disease History Infectious Disease History: Reports: Chicken Pox, Measles, Mumps - Past Surgical History HEENT Surgical History: Reports: Cataract Surgery, Oral Surgery GI Surgical History: Reports: Colonoscopy, Other (See Below) Female Surgical History: Reports: Mastectomy, Other (See Below) Other Female Surgeries/Procedures: bladder cancer Oncologic Surgical History: Reports: Biopsy of Breast, Mastectomy Social & Family History - Family History Family Medical History: Noncontributory - Caffeine Use Caffeine Use: Reports: Coffee ED ROS GENERAL - Review of Systems Review Of Systems: See Below Constitutional: Reports: No Symptoms HEENT: Reports: No Symptoms Respiratory: Reports: No Symptoms Cardiovascular: Reports: No Symptoms Endocrine: Reports: No Symptoms GI/Abdominal: Reports: No Symptoms : Reports: Frequency. Denies: Dysuria, Hematuria Musculoskeletal: Reports: Back Pain (right lower) Skin: Reports: No Symptoms Neurological: Denies: Confusion, Dizziness Psychiatric: Reports: No Symptoms Hematologic/Lymphatic: Reports: No Symptoms ED EXAM, RENAL/ - Physical Exam Exam: See Below Exam Limited By: No Limitations General Appearance: Alert, WD/WN, No Apparent Distress Ears: Normal External Exam Nose: Normal Inspection Throat/Mouth: No Airway Compromise Head: Atraumatic, Normocephalic Neck: Supple Respiratory/Chest: No Respiratory Distress, Lungs Clear, Normal Breath Sounds Cardiovascular: Regular Rate, Rhythm, No Murmur GI/Abdominal: Normal Bowel Sounds, Soft, Non-Tender, No Distention (Female) Exam: Deferred Rectal (Female) Exam: Deferred Back Exam: No: CVA Tenderness (R), CVA Tenderness (L) Extremities: Normal Inspection Neurological: Alert, Oriented, Normal Cognition, No Motor/Sensory Deficits Psychiatric: Normal Affect, Normal Mood Skin Exam: Warm, Dry, Intact, Normal Color, No Rash Course - Vital Signs Last Recorded V/S: Last Vital Signs Temp 36.4 C 10/30/17 10:50 Pulse 84 10/30/17 10:50 Resp 18 10/30/17 10:50 BP 151/71 H 10/30/17 10:50 Pulse Ox 95 10/30/17 10:50 - Orders/Labs/Meds Orders: Active Orders 24 hr Category Date Time Status CULTURE BLOOD [BC] Stat Lab 10/30/17 12:07 Received CULTURE BLOOD [BC] Stat Lab 10/30/17 12:12 Received CULTURE URINE [RM] Stat Lab 10/30/17 11:08 Received UA W/MICROSCOPIC [URIN] Stat Lab 10/30/17 11:08 Ordered Ciprofloxacin [Ciprofloxacin HCl] Med 10/30/17 12:33 Once 250 mg PO ONETIME ONE Blood Culture x2 Reflex Set [OM.PC] Urgent Oth 10/30/17 11:43 Ordered Labs: Laboratory Tests 10/30/17 10/30/17 10/30/17 Range/Units 11:08 12:07 12:07 WBC 8.1 (4.5-12.0) X10-3/uL RBC 4.97 (3.23-5.20) x10(6)uL Hgb 15.7 H (11.5-15.5) g/dL Hct 47.7 (30.0-51.3) % MCV 95.9 (80-96) fL MCH 31.7 (27.7-33.6) pg MCHC 33.0 (32.2-35.4) g/dL RDW 12.7 (11.5-15.5) % Plt Count 247 (125-369) X10(3)uL MPV 7.6 (7.4-10.4) fL Neut % (Auto) 66.2 (46-82) % Lymph % (Auto) 20.0 (13-37) % [place] % (Auto) 8.6 (4-12) % Eos % (Auto) 5 (1.0-5.0) % Baso % (Auto) 1 (0-2) % Neut # (Auto) 5.4 (1.6-8.3) # Lymph # (Auto) 1.6 (0.6-5.0) # [place] # (Auto) 0.7 (0.0-1.3) # Eos # (Auto) 0.4 (0.0-0.8) # Baso # (Auto) 0.0 (0.0-0.2) # Sodium 137 (135-145) mmol/L Potassium 4.3 (3.5-5.3) mmol/L Chloride 101 (100-110) mmol/L Carbon Dioxide 28 (21-32) mmol/L BUN 16 (7-18) mg/dL Creatinine 0.7 (0.55-1.02) mg/dL Est Cr Clr Drug Dosing TNP Estimated GFR (MDRD) > 60 (>60) BUN/Creatinine Ratio 22.9 H (9-20) Glucose 106 (80-116) mg/dL Calcium 9.4 (8.6-10.2) mg/dL Urine Color Yellow (YELLOW) Urine Appearance Slightly cloudy (CLEAR) Urine pH 5.0 (5.0-6.5) Ur Specific [place] 1.015 (1.010-1.025) Urine Protein Negative (NEGATIVE) mg/dL Urine Glucose (UA) Normal (NEGATIVE) mg/dL Urine Ketones Negative (NEGATIVE) mg/dL Urine Occult Blood Moderate H (NEGATIVE) Urine Nitrite Negative (NEGATIVE) Urine Bilirubin Negative (NEGATIVE) Urine Urobilinogen Normal (NEGATIVE) mg/dL Ur Leukocyte Esterase Large H (NEGATIVE) Urine RBC >100 H (0) Urine WBC >100 H (0) Ur Squamous Epith Cells Occasional (NS,R,O) Urine Bacteria Many H (NS) Meds: Medications Discontinued Medications Generic Name Dose Route Start Last Admin Trade Name Freq PRN Reason Stop Dose Admin Ciprofloxacin 500 mg 10/30/17 12:32 Ciprofloxacin Hcl PO 10/30/17 12:33 ONETIME ONE Departure - Departure Time of Disposition: 12:34 Disposition: Home, Self-Care 01 Condition: Good Clinical Impression: UTI, Urinary tract infectious disease - Discharge Information *PRESCRIPTION DRUG MONITORING PROGRAM REVIEWED*: No *COPY OF PRESCRIPTION DRUG MONITORING REPORT IN PATIENT DAVION: Not Applicable Prescriptions: Ciprofloxacin HCl [Cipro] 250 mg PO BID 10 Days #20 tablet Instructions: Urinary Tract Infection, Adult, [id number] Referrals: Jose Miguel Merino MD [Primary Care Provider] - Forms: ED Department Discharge Additional Instructions: Drink plenty of fluids. Follow up with your doctor in 2-3 days. Return to the ED if symptoms worsen. - My Orders Last 24 Hours: My Active Orders 10/30/17 11:08 CULTURE URINE [RM] Stat UA W/MICROSCOPIC [URIN] Stat 10/30/17 11:43 Blood Culture x2 Reflex Set [OM.PC] Urgent 10/30/17 12:07 CULTURE BLOOD [BC] Stat 10/30/17 12:12 CULTURE BLOOD [BC] Stat 10/30/17 12:33 Ciprofloxacin [Ciprofloxacin HCl] 250 mg PO ONETIME ONE - Assessment/Plan Last 24 Hours: My Active Orders 10/30/17 11:08 CULTURE URINE [RM] Stat UA W/MICROSCOPIC [URIN] Stat 10/30/17 11:43 Blood Culture x2 Reflex Set [OM.PC] Urgent 10/30/17 12:07 CULTURE BLOOD [BC] Stat 10/30/17 12:12 CULTURE BLOOD [BC] Stat 10/30/17 12:33 Ciprofloxacin [Ciprofloxacin HCl] 250 mg PO ONETIME ONE
[2017-10-30] MEDS ORDERED: Ciprofloxacin 500 MG Tab PO ONE (12:32)
[2017-10-30] MEDS ORDERED: Ciprofloxacin 250 MG Tab PO ONE (12:33)
[2017-10-30] MEDS ORDERED: Cefuroxime 250 MG Tab PO ONE (12:39)
[2017-10-30 12:42] VITALS: BP 148/83
== END 2017-10-30 12:50 | disposition home or self-care (01) ==
LOC: FB.ED 10:30
DX: N39.0 Urinary tract infection, site not specified (principal); I10 Essential (primary) hypertension; E11.9 Type 2 diabetes mellitus without complications; Z79.899 Other long term (current) drug therapy
CPT/HCPCS: 36415; 80048; 81001; 85025; 87040; 87086; 99283; A9270

== ENCOUNTER 2017-12-26 12:43 | Emergency (ER) | payer MEDICARE, BC ==
[2017-12-26 12:58] VITALS: BP 135/74
[2017-12-26] MEDS ORDERED: Cefuroxime 250 MG Tab PO ONE (14:49)
--- NOTE | 2017-12-26 14:56 | EDM.PDOC ---
ED HPI GENERAL MEDICAL PROBLEM - General Chief Complaint: Genitourinary Problem Stated Complaint: CONFUSION Time Seen by Provider: 12/26/17 13:11 Source of Information: Reports: Patient, Family History Limitations: Reports: No Limitations - History of Present Illness INITIAL COMMENTS - FREE TEXT/NARRATIVE: Presents with intermittent confusion since yesterday. Currently not confused. Gets recurrent UTI's, thinks may have a UTI. History of bladder CA. Denies F/C, or N/V. Duration: Day(s): (2) Severity: Mild - Related Data Allergies Allergy/AdvReac Type Severity Reaction Status Date / Time No Known Allergies Allergy Verified 10/30/17 13:28 Home Meds: Home Meds Cholecalciferol (Vitamin D3) [Vitamin D3] 1,000 units PO DAILY 12/16/15 [History ] Clopidogrel [Plavix] 75 mg PO DAILY 12/16/15 [History] Docusate Sodium [Colace] 100 mg PO DAILY 12/16/15 [History] Furosemide [Lasix] 10 mg PO DAILY 12/16/15 [History] Latanoprost [Xalatan 0.005% Ophth Soln] 1 drop EYEBOTH BEDTIME 12/16/15 [History ] Multivitamin [One Daily] 1 tab PO DAILY 12/16/15 [History] [place]-3 Fatty Acids/Fish Oil [Fish Oil Concentrate Softgel] 720 mg PO DAILY 08/25 [History] Timolol Maleate [Timoptic 0.25% Ophth Soln] 1 drop EYEBOTH DAILY 12/16/15 [ History] metFORMIN [Glucophage] 500 mg PO DAILY 12/16/15 [History] Acetaminophen [Acetaminophen Extra Strength] 1,000 mg PO 08,14,21 01/05/17 [ History] Dorzolamide [Trusopt 2% Ophth Soln] 1 drop EYEBOTH BID 01/05/17 [History] Propylene Glycol/Peg 400 [Systane 0.3-0.4% Eye Drops] 1 drop EYEBOTH BID [History] atorvaSTATin [Lipitor] 10 mg PO 1500 01/05/17 [History] traMADol [Ultram] 50 mg PO Q6H PRN #40 tab 01/06/17 [Rx] Cefuroxime Axetil [Ceftin] 500 mg PO BID 10 Days #20 tablet 10/30/17 [Rx] Cefuroxime Axetil [Ceftin] 250 mg PO BID #20 tablet 12/26/17 [Rx] Past Medical History HEENT History: Reports: Cataract, Impaired Vision Cardiovascular History: Reports: High Cholesterol, Hypertension Respiratory History: Reports: Other (See Below) Other Respiratory History: Had pneumonia as an infant, serious. 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 Neurological History: Reports: TIA Endocrine/Metabolic History: Reports: Diabetes, Type II Oncologic (Cancer) History: Reports: Breast, Other (See Below) Other Oncologic History: bladder - Infectious Disease History Infectious Disease History: Reports: Chicken Pox, Measles, Mumps - Past Surgical History HEENT Surgical History: Reports: Cataract Surgery, Oral Surgery GI Surgical History: Reports: Colonoscopy, Other (See Below) Female Surgical History: Reports: Mastectomy, Other (See Below) Other Female Surgeries/Procedures: bladder cancer Oncologic Surgical History: Reports: Biopsy of Breast, Mastectomy Social & Family History - Family History Family Medical History: Noncontributory - Caffeine Use Caffeine Use: Reports: Coffee ED ROS GENERAL - Review of Systems Review Of Systems: ROS reveals no pertinent complaints other than HPI. ED EXAM, GENERAL - Physical Exam Exam: See Below Exam Limited By: No Limitations General Appearance: Alert, WD/WN, No Apparent Distress Ears: Normal External Exam Throat/Mouth: No Airway Compromise Head: Atraumatic, Normocephalic Neck: Full Range of Motion Respiratory/Chest: No Respiratory Distress, Lungs Clear, Normal Breath Sounds Cardiovascular: Regular Rate, Rhythm, No Murmur GI/Abdominal: Soft, Non-Tender, No Distention Extremities: Normal Range of Motion Neurological: Alert, Oriented, Normal Cognition, Normal Gait, No Motor/Sensory Deficits Psychiatric: Normal Affect, Normal Mood Skin Exam: Warm, Dry, Intact Course - Vital Signs Last Recorded V/S: Last Vital Signs Temp 36.6 C 12/26/17 12:50 Pulse 80 12/26/17 12:50 Resp 16 12/26/17 12:50 BP 135/74 12/26/17 12:50 Pulse Ox 98 12/26/17 12:50 - Orders/Labs/Meds Labs: Laboratory Tests 12/26/17 12/26/17 12/26/17 Range/Units 13:10 13:30 13:30 WBC 7.7 (4.5-12.0) X10-3/uL RBC 4.50 (3.23-5.20) x10(6)uL Hgb 14.3 (11.5-15.5) g/dL Hct 43.2 (30.0-51.3) % MCV 96.1 H (80-96) fL MCH 31.9 (27.7-33.6) pg MCHC 33.1 (32.2-35.4) g/dL RDW 12.7 (11.5-15.5) % Plt Count 263 (125-369) X10(3)uL MPV 7.9 (7.4-10.4) fL Neut % (Auto) 61.0 (46-82) % Lymph % (Auto) 22.3 (13-37) % [place] % (Auto) 10.3 (4-12) % Eos % (Auto) 6 H (1.0-5.0) % Baso % (Auto) 1 (0-2) % Neut # (Auto) 4.8 (1.6-8.3) # Lymph # (Auto) 1.7 (0.6-5.0) # [place] # (Auto) 0.8 (0.0-1.3) # Eos # (Auto) 0.4 (0.0-0.8) # Baso # (Auto) 0.0 (0.0-0.2) # Sodium 140 (135-145) mmol/L Potassium 3.8 (3.5-5.3) mmol/L Chloride 104 (100-110) mmol/L Carbon Dioxide 24 (21-32) mmol/L BUN 18 (7-18) mg/dL Creatinine 0.7 (0.55-1.02) mg/dL Est Cr Clr Drug Dosing TNP Estimated GFR (MDRD) > 60 (>60) BUN/Creatinine Ratio 25.7 H (9-20) Glucose 122 H (80-116) mg/dL Calcium 8.9 (8.6-10.2) mg/dL Urine Color Yellow (YELLOW) Urine Appearance Slightly cloudy (CLEAR) Urine pH 6.0 (5.0-6.5) Ur Specific [place] 1.020 (1.010-1.025) Urine Protein 30 H (NEGATIVE) mg/dL Urine Glucose (UA) Normal (NEGATIVE) mg/dL Urine Ketones Negative (NEGATIVE) mg/dL Urine Occult Blood Moderate H (NEGATIVE) Urine Nitrite Negative (NEGATIVE) Urine Bilirubin Negative (NEGATIVE) Urine Urobilinogen Normal (NEGATIVE) mg/dL Ur Leukocyte Esterase Moderate H (NEGATIVE) Urine RBC 10-20 H (0) Urine WBC 20-30 H (0) Ur Squamous Epith Cells Few H (NS,R,O) Urine Bacteria Moderate H (NS) Meds: Medications Discontinued Medications Generic Name Dose Route Start Last Admin Trade Name Freq PRN Reason Stop Dose Admin Cefuroxime Axetil 250 mg 12/26/17 14:49 Ceftin PO 12/26/17 14:50 ONETIME ONE Departure - Departure Time of Disposition: 14:53 Disposition: Home, Self-Care 01 Condition: Good Clinical Impression: UTI, Urinary tract infectious disease - Discharge Information *PRESCRIPTION DRUG MONITORING PROGRAM REVIEWED*: No *COPY OF PRESCRIPTION DRUG MONITORING REPORT IN PATIENT DAVION: Not Applicable Prescriptions: Cefuroxime Axetil [Ceftin] 250 mg PO BID #20 tablet Instructions: Urinary Tract Infection, Adult, [id number] Referrals: Jose Miguel Merino MD [Primary Care Provider] - Additional Instructions: Fill prescription for Ceftin and take as directed. Drink plenty of fluids. Follow up in 2 days if symptoms don't improve. Return to the ER if symptoms worsen.
== END 2017-12-26 15:10 | disposition home or self-care (01) ==
LOC: FB.ED 12:43
DX: N39.0 Urinary tract infection, site not specified (principal); I10 Essential (primary) hypertension; E11.9 Type 2 diabetes mellitus without complications; Z79.899 Other long term (current) drug therapy
CPT/HCPCS: 36415; 80048; 81001; 85025; 87086; 99284; A9270; 99283

== ENCOUNTER 2018-12-21 09:05 | Emergency (ER) | payer MEDICARE, BC ==
[2018-12-21 09:26] VITALS: BP 152/71; PULSE 91
--- NOTE | 2018-12-21 10:02 | EDM.PDOC ---
ED HPI GENERAL MEDICAL PROBLEM - General Chief Complaint: Gastrointestinal Problem Stated Complaint: GI BLEED Time Seen by Provider: 12/21/18 09:10 Source of Information: Reports: Patient, Old Records History Limitations: Reports: No Limitations - History of Present Illness INITIAL COMMENTS - FREE TEXT/NARRATIVE: Patient is a very pleasant 88-year-old female who comes in today with concern for bright red blood per rectum and maroon stools which started yesterday and have continued today. She states that yesterday evening she noticed she had some blood when she wiped and some blood mixed in her stool. Today it happened again and she has had 3 bowel movements, all of which were maroon in seemed to have a lot of blood. She is not having any blood in her underwear in between. She is fairly certain that it is not vaginal in origin. She does not feel lightheaded or dizzy, she does not have any palpitations, or presyncopal. She has no abdominal pain. In general she tends towards constipation. She is on Plavix, but no beta kashif. She states that recently she was seen by her primary for a sore in her rectal area that hurts when she wipes, but otherwise does not have any pain with bowel movements. She has had no fever, chills or sweats. She has had no chest pain, shortness of breath, or any other symptoms of concern. Lower Abdomen Pain Score (Numeric/FACES): 4 - Related Data Allergies Allergy/AdvReac Type Severity Reaction Status Date / Time No Known Allergies Allergy Verified 10/30/17 13:28 Home Meds: Home Meds Cholecalciferol (Vitamin D3) [Vitamin D3] 1,000 units PO DAILY 12/16/15 [History ] Clopidogrel [Plavix] 75 mg PO DAILY 12/16/15 [History] Docusate Sodium [Colace] 100 mg PO DAILY 12/16/15 [History] Furosemide [Lasix] 10 mg PO DAILY 12/16/15 [History] Latanoprost [Xalatan 0.005% Ophth Soln] 1 drop EYEBOTH BEDTIME 12/16/15 [History ] Multivitamin [One Daily] 1 tab PO DAILY 12/16/15 [History] [place]-3 Fatty Acids/Fish Oil [Fish Oil Concentrate Softgel] 720 mg PO DAILY 08/25 [History] Timolol Maleate [Timoptic 0.25% Ophth Soln] 1 drop EYEBOTH DAILY 12/16/15 [ History] metFORMIN [Glucophage] 500 mg PO DAILY 12/16/15 [History] Acetaminophen [Acetaminophen Extra Strength] 1,000 mg PO 08,14,21 01/05/17 [ History] Dorzolamide [Trusopt 2% Ophth Soln] 1 drop EYEBOTH BID 01/05/17 [History] Propylene Glycol/Peg 400 [Systane 0.3-0.4% Eye Drops] 1 drop EYEBOTH BID [History] atorvaSTATin [Lipitor] 10 mg PO 1500 01/05/17 [History] traMADol [Ultram] 50 mg PO Q6H PRN #40 tab 01/06/17 [Rx] Cefuroxime Axetil [Ceftin] 500 mg PO BID 10 Days #20 tablet 10/30/17 [Rx] Cefuroxime Axetil [Ceftin] 250 mg PO BID #20 tablet 12/26/17 [Rx] Past Medical History HEENT History: Reports: Cataract, Impaired Vision Cardiovascular History: Reports: High Cholesterol, Hypertension Respiratory History: Reports: Other (See Below) Other Respiratory History: Had pneumonia as an , serious. 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 Neurological History: Reports: TIA Endocrine/Metabolic History: Reports: Diabetes, Type II Oncologic (Cancer) History: Reports: Breast, Other (See Below) Other Oncologic History: bladder - Infectious Disease History Infectious Disease History: Reports: Chicken Pox, Measles, Mumps - Past Surgical History HEENT Surgical History: Reports: Cataract Surgery, Oral Surgery GI Surgical History: Reports: Colonoscopy, Other (See Below) Female Surgical History: Reports: Mastectomy, Other (See Below) Other Female Surgeries/Procedures: bladder cancer Oncologic Surgical History: Reports: Biopsy of Breast, Mastectomy Social & Family History - Family History Family Medical History: Noncontributory - Tobacco Use Smoking Status *Q: Never Smoker - Caffeine Use Caffeine Use: Reports: Coffee - Alcohol Use Alcohol Use History: No - Living Situation & Occupation Living situation: Reports: Occupation: Retired Social History Comment: 2 children live in [facility], one in [place] ED ROS GENERAL - Review of Systems Review Of Systems: ROS reveals no pertinent complaints other than HPI. ED EXAM, GENERAL - Physical Exam Exam: See Below Free Text/Narrative:: Gen.: Alert, very pleasant in no acute distress. Throat is without erythema, mucous members are moist and there is no tonsillar enlargement or exudates. Neck is supple and there is no cervical lymphadenopathy. Lungs are clear throughout with no wheezes or crackles and heart is regular rate and rhythm. Abdomen positive bowel sounds, soft nondistended nontender with no rebound or guarding. Peripheral pulses +2 in both the upper and lower extremities and there is no lower extremity edema. Skin is slightly dry but without lesions or rashes. Rectal exam shows dried blood present externally. There is a slight area of raw skin present at the posterior vaginal fornix but no signs of infection. Anoscopy shows few very small (less than pea-sized) clots present and no signs of active bleeding and no obvious source. Course - Vital Signs Text/Narrative:: initial impression - likely hemorrhoidal vs diverticular bleeding. On plavix only, hemodynamically stable. Labs ordered. Last Recorded V/S: Last Vital Signs Temp 36.7 C 12/21/18 09:05 Pulse 91 12/21/18 09:05 Resp 18 12/21/18 09:05 BP 152/71 H 12/21/18 09:05 Pulse Ox 96 12/21/18 09:05 - Orders/Labs/Meds Labs: Laboratory Tests 12/21/18 12/21/18 12/21/18 Range/Units 09:35 09:35 09:35 WBC 7.4 (4.5-12.0) X10-3/uL RBC 4.05 (3.23-5.20) x10(6)uL Hgb 13.3 (11.5-15.5) g/dL Hct 38.3 (30.0-51.3) % MCV 94.4 (80-96) fL MCH 32.9 (27.7-33.6) pg MCHC 34.8 (32.2-35.4) g/dL RDW 12.8 (11.5-15.5) % Plt Count 234 (125-369) X10(3)uL MPV 7.3 L (7.4-10.4) fL Neut % (Auto) 69.8 (46-82) % Lymph % (Auto) 17.9 (13-37) % [place] % (Auto) 9.0 (4-12) % Eos % (Auto) 3 (1.0-5.0) % Baso % (Auto) 1 (0-2) % Neut # (Auto) 5.2 (1.6-8.3) # Lymph # (Auto) 1.3 (0.6-5.0) # [place] # (Auto) 0.7 (0.0-1.3) # Eos # (Auto) 0.2 (0.0-0.8) # Baso # (Auto) 0.0 (0.0-0.2) # PT 9.7 (8.7-11.1) INR 1.00 (0.89-1.13) Sodium 140 (135-145) mmol/L Potassium 4.0 (3.5-5.3) mmol/L Chloride 105 (100-110) mmol/L Carbon Dioxide 24 (21-32) mmol/L BUN 20 H (7-18) mg/dL Creatinine 0.7 (0.55-1.02) mg/dL Est Cr Clr Drug Dosing TNP Estimated GFR (MDRD) > 60 (>60) BUN/Creatinine Ratio 28.6 H (9-20) Glucose 149 H (80-116) mg/dL Calcium 8.6 (8.6-10.2) mg/dL - Re-Assessments/Exams Free Text/Narrative Re-Assessment/Exam: 12/21/18 10:03 Exam completed, no signs of active bleeding, few clots present. Labs within normal limits and no anemia. Followup requested with PCP tomorrow, given warning signs for reasons to return to ER. All questions answered. Departure - Departure Time of Disposition: 10:05 Disposition: Home, Self-Care 01 Condition: Good Clinical Impression: Rectal bleed - Discharge Information *PRESCRIPTION DRUG MONITORING PROGRAM REVIEWED*: Not Applicable *COPY OF PRESCRIPTION DRUG MONITORING REPORT IN PATIENT DAVION: Not Applicable Instructions: Rectal Bleeding Referrals: Jose Miguel Merino MD [Primary Care Provider] - 12/22/18 4:00 pm Forms: ED Department Discharge Additional Instructions: recommend starting something for constipation as this can contribute to diverticular and hemorrhoidal bleeding. Miralax is the safest. Recheck with PCP tomorrow, will defer stopping plavix to him. also talk with PCP about something like a fiber supplement Return if constant, ongoing bleeding, feeling lightheaded, weak, dizzy, heart racing, short of breath, faint, abdominal pain, fever, or other concerns. Hb 13.3
== END 2018-12-21 10:25 | disposition home or self-care (01) ==
LOC: FB.ED 09:05
DX: K62.5 Hemorrhage of anus and rectum (principal); I10 Essential (primary) hypertension; E11.9 Type 2 diabetes mellitus without complications; E78.00 Pure hypercholesterolemia, unspecified; Z86.73 Personal history of transient ischemic attack (TIA), and cerebral infarction without residual deficits; Z79.899 Other long term (current) drug therapy; Z79.84 Long term (current) use of oral hypoglycemic drugs; Z98.890 Other specified postprocedural states
CPT/HCPCS: 36415; 80048; 85025; 85610; 99284

== ENCOUNTER 2019-03-07 12:18 | Emergency (ER) | payer MEDICARE, BC ==
[2019-03-07 12:33] VITALS: PULSE 76
[2019-03-07 13:13] VITALS: BP 158/68
[2019-03-07] MEDS ORDERED: Diphtheria,Pertussis(Acell),Tetanus Vaccine 0.5 ML SDV IM ONE (13:16)
--- NOTE | 2019-03-07 14:13 | EDM.PDOC ---
ED HPI GENERAL MEDICAL PROBLEM - General Chief Complaint: General Stated Complaint: FALL, L FOREARM INJURY Time Seen by Provider: 03/07/19 12:30 Source of Information: Reports: Patient, Family, Old Records History Limitations: Reports: No Limitations - History of Present Illness INITIAL COMMENTS - FREE TEXT/NARRATIVE: Violet comes into [facility] ED by EMS following a fall out of a swivel chair this morning that lacerated her L forearm. There was no LOC. She is not reporting any other injuries or concerns. Her tetanus vax status needs updating. - Related Data Allergies Allergy/AdvReac Type Severity Reaction Status Date / Time No Known Allergies Allergy Verified 03/07/19 12:30 Home Meds: Home Meds Cholecalciferol (Vitamin D3) [Vitamin D3] 1,000 units PO DAILY 12/16/15 [History ] Clopidogrel [Plavix] 75 mg PO DAILY 12/16/15 [History] Docusate Sodium [Colace] 100 mg PO DAILY 12/16/15 [History] Furosemide [Lasix] 10 mg PO DAILY 12/16/15 [History] Latanoprost [Xalatan 0.005% Ophth Soln] 1 drop EYEBOTH BEDTIME 12/16/15 [History ] Multivitamin [One Daily] 1 tab PO DAILY 12/16/15 [History] [place]-3 Fatty Acids/Fish Oil [Fish Oil Concentrate Softgel] 720 mg PO DAILY 08/25 [History] Timolol Maleate [Timoptic 0.25% Ophth Soln] 1 drop EYEBOTH DAILY 12/16/15 [ History] metFORMIN [Glucophage] 500 mg PO DAILY 12/16/15 [History] Acetaminophen [Acetaminophen Extra Strength] 1,000 mg PO 08,14,21 01/05/17 [ History] Dorzolamide [Trusopt 2% Ophth Soln] 1 drop EYEBOTH BID 01/05/17 [History] Propylene Glycol/Peg 400 [Systane 0.3-0.4% Eye Drops] 1 drop EYEBOTH BID [History] atorvaSTATin [Lipitor] 10 mg PO 1500 01/05/17 [History] traMADol [Ultram] 50 mg PO Q6H PRN #40 tab 01/06/17 [Rx] Cefuroxime Axetil [Ceftin] 500 mg PO BID 10 Days #20 tablet 10/30/17 [Rx] Cefuroxime Axetil [Ceftin] 250 mg PO BID #20 tablet 12/26/17 [Rx] Past Medical History HEENT History: Reports: Cataract, Impaired Vision Cardiovascular History: Reports: High Cholesterol, Hypertension Respiratory History: Reports: Other (See Below) Other Respiratory History: Had pneumonia as an infant, serious. 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 Neurological History: Reports: TIA Endocrine/Metabolic History: Reports: Diabetes, Type II Oncologic (Cancer) History: Reports: Breast, Other (See Below) Other Oncologic History: bladder - Infectious Disease History Infectious Disease History: Reports: Chicken Pox, Measles, Mumps - Past Surgical History HEENT Surgical History: Reports: Cataract Surgery, Oral Surgery GI Surgical History: Reports: Colonoscopy, Other (See Below) Female Surgical History: Reports: Mastectomy, Other (See Below) Other Female Surgeries/Procedures: bladder cancer Oncologic Surgical History: Reports: Biopsy of Breast, Mastectomy Social & Family History - Family History Family Medical History: Noncontributory - Tobacco Use Smoking Status *Q: Never Smoker - Caffeine Use Caffeine Use: Reports: Coffee, Soda - Recreational Drug Use Recreational Drug Use: No - Living Situation & Occupation Living situation: Reports: Occupation: Retired ED ROS GENERAL - Review of Systems Review Of Systems: Comprehensive ROS is negative, except as noted in HPI. ED EXAM, GENERAL - Physical Exam Exam: See Below Exam Limited By: No Limitations General Appearance: Alert, WD/WN, No Apparent Distress, Thin Eye Exam: Bilateral Eye: EOMI, Normal Inspection, PERRL Ears: Normal External Exam Nose: Normal Inspection Throat/Mouth: Normal Inspection, Normal Oropharynx, Normal Voice Head: Atraumatic, Normocephalic Neck: Normal Inspection, Non-Tender Respiratory/Chest: Lungs Clear, Chest Non-Tender Cardiovascular: Regular Rate, Rhythm, No Murmur GI/Abdominal: Normal Bowel Sounds, Soft, Non-Tender, No Organomegaly, No Distention, No Mass (Female) Exam: Deferred Rectal (Female) Exam: Deferred Back Exam: Normal Inspection Extremities: Normal Range of Motion, Normal Capillary Refill, Other ( superficial lacerations of L forearm) Psychiatric: Normal Affect, Normal Mood Skin Exam: Warm, Dry, Ecchymosis, Wound/Incision (superficial lacerations of L forearm) Lymphatic: No Adenopathy ED GENERAL MEDICAL PROCEDURES - Laceration/Wound Repair Left Lateral Other Lac/wound length in cm: 12 (L forearm) Appearance: Superficial, Other (Flap type) Distal NVT: Neuro & Vascular Intact, No Tendon Injury Skin Prep: Chlorhexidine (Hibiciens) Exploration/Debridement/Repair: Wound Explored, No Foreign Material Found, Multiple Flaps Aligned Closed with: Steri-Strips Drain Placement: No Sterile Dressing Applied: Provider Tetanus Status Addressed: Yes Complications: No Course - Vital Signs Text/Narrative:: Patient tolerated procedure well. Adacel Vax IM administered. Last Recorded V/S: Last Vital Signs Temp 36.3 C 03/07/19 13:12 Pulse 76 03/07/19 13:12 Resp 16 03/07/19 13:12 BP 158/68 H 03/07/19 13:12 Pulse Ox 98 03/07/19 13:12 - Orders/Labs/Meds Orders: Active Orders 24 hr Category Date Time Status Vaccines to be Administered [RC] PER UNIT ROUTINE Care 03/07/19 13:16 Active Meds: Medications Discontinued Medications Generic Name Dose Route Start Last Admin Trade Name Patrickq PRN Reason Stop Dose Admin Diphtheria/Tetanus/Acell Pertussis 0.5 ml 03/07/19 13:16 03/07/19 13:19 Adacel IM 03/07/19 13:17 0.5 ml .ONCE ONE Administration Departure - Departure Time of Disposition: 14:00 Disposition: Home, Self-Care 01 Condition: Good Clinical Impression: Laceration of left forearm Qualifiers: Encounter type: initial encounter Qualified Code(s): S51.812A - Laceration without foreign body of left forearm, initial encounter - Discharge Information *PRESCRIPTION DRUG MONITORING PROGRAM REVIEWED*: Not Applicable *COPY OF PRESCRIPTION DRUG MONITORING REPORT IN PATIENT DAVION: Not Applicable Instructions: Skin Tear Care, [id number], Laceration Care, Adult, Easy-to- Read, Stitches, [place], or Adhesive Wound Closure, [id number] Referrals: Jose Miguel Merino MD [Primary Care Provider] - Forms: ED Department Discharge Additional Instructions: SEE YOUR PRIMARY CARE PROVIDER NEXT WEEK TO HAVE YOUR WOUND CHECKED. - Problem List & Annotations (1) Laceration of left forearm SNOMED Code(s): 15972439920478595 Code(s): S51.812A - LACERATION WITHOUT FOREIGN BODY OF LEFT FOREARM, INIT ENCNTR Status: Acute Annotation/Comment:: I suggested keeping wound clean and dry. She may take Tylenol for pain. Qualifiers: Encounter type: initial encounter Qualified Code(s): S51.812A - Laceration without foreign body of left forearm, initial encounter - Problem List Review Problem List Initiated/Reviewed/Updated: Yes - My Orders Last 24 Hours: My Active Orders 03/07/19 13:16 Vaccines to be Administered [RC] PER UNIT ROUTINE - Assessment/Plan Last 24 Hours: My Active Orders 03/07/19 13:16 Vaccines to be Administered [RC] PER UNIT ROUTINE Plan: Follow up for dressing change in 1 week.
== END 2019-03-07 13:30 | disposition home or self-care (01) ==
LOC: FB.ED 12:18
DX: S51.812A Laceration without foreign body of left forearm, initial encounter (principal); E78.5 Hyperlipidemia, unspecified; I10 Essential (primary) hypertension; E11.9 Type 2 diabetes mellitus without complications; Z86.73 Personal history of transient ischemic attack (TIA), and cerebral infarction without residual deficits; Z23 Encounter for immunization; Z79.01 Long term (current) use of anticoagulants; Z79.84 Long term (current) use of oral hypoglycemic drugs; Z79.899 Other long term (current) drug therapy; W07.XXXA Fall from chair, initial encounter; Y93.89 Activity, other specified
CPT/HCPCS: 90471; 90715; 99283-25

== ENCOUNTER 2020-06-04 13:58 | Inpatient (IN) | payer MEDICARE, BC ==
[2020-06-04] MEDS ORDERED: Sodium Chloride 0.9% 500 ML IV ONE (14:11)
[2020-06-04] MEDS ORDERED: Pantoprazole 40 MG Vial IVPUSH ONE (14:11)
[2020-06-04] MEDS ORDERED: Morphine 2 MG/ML SYRINGE IVPUSH ONE (14:12)
[2020-06-04] MEDS: Sodium Chloride 0.9% 10 ML Syringe FLUSH PRN ×2 (14:18→18:10)
--- NOTE | 2020-06-04 14:18 | EDM.PDOC ---
ED HPI GENERAL MEDICAL PROBLEM - General Chief Complaint: Cardiovascular Problem Stated Complaint: HEART COMPLICATIONS Time Seen by Provider: 06/04/20 14:12 Source of Information: Reports: Patient, Fdc Records History Limitations: Reports: No Limitations - History of Present Illness INITIAL COMMENTS - FREE TEXT/NARRATIVE: Presents with sudden onset right sided chest pain and SOB since @1300 today. Sa02 @80%'s SPINNER OPEN END. Denies nausea or abdominal pain. Patient resides at [facility], code status is DNR/DNI per [place] records, son confirms. PMHx is significant for T2DM, HLD, LLE DVT, SVT, and CKD. She tested positive for COVID on 02/16/20. Onset: Today Location: Reports: Chest Quality: Reports: Ache Severity: Moderate - Related Data Allergies Allergy/AdvReac Type Severity Reaction Status Date / Time No Known Allergies Allergy Verified 03/07/19 12:30 Home Meds: Home Meds Cholecalciferol (Vitamin D3) [Vitamin D3] 1,000 units PO DAILY 12/16/15 [History] Clopidogrel [Plavix] 75 mg PO DAILY 12/16/15 [History] Docusate Sodium [Colace] 100 mg PO BID 12/16/15 [History] Latanoprost [Xalatan 0.005% Ophth Soln] 1 drop EYEBOTH BEDTIME 12/16/15 [History] metFORMIN [Glucophage] 500 mg PO WITHBREAKFAST 12/16/15 [History] Dorzolamide [Trusopt 2% Ophth Soln] 1 drop EYEBOTH BID 01/05/17 [History] Propylene Glycol/Peg 400 [Systane 0.3-0.4% Eye Drops] 1 drop EYEBOTH BID 01/05/17 [History] atorvaSTATin [Lipitor] 10 mg PO BEDTIME 01/05/17 [History] Acetaminophen [Tylenol] 650 mg PO BID 06/04/20 [History] Acetaminophen [Tylenol] 650 mg PO TID PRN 06/04/20 [History] Ascorbic Acid [Vitamin C] 1,000 mg PO DAILY 06/04/20 [History] Escitalopram Oxalate [Lexapro] 10 mg PO DAILY 06/04/20 [History] L Acidophil/B Lactis/B Longum [Florajen3] 1 cap PO DAILY 06/04/20 [History] Magnesium Hydroxide [Milk of Magnesia] 30 ml PO DAILY PRN 06/04/20 [History] Melatonin 3 mg PO BEDTIME 06/04/20 [History] Metoprolol Tartrate 12.5 mg PO BID 06/04/20 [History] Oxybutynin 5 mg PO DAILY 06/04/20 [History] Phytonadione [Vitamin K] 100 mcg PO WITHDINNER 06/04/20 [History] Saliva Substitute Combo No.9 [Biotene] 1 dose MUCMEM BID 06/04/20 [History] Sodium Chloride [Saline Nasal [place]] 2 spray NASBOTH TID 06/04/20 [History] Vit C/E/Zn/Coppr/Lutein/Zeaxan [Preservision Areds 2 Softgel] 1 cap PO BID 06/04/20 [History] polyethylene glycoL 3350 [MiraLAX] 17 gm PO DAILY PRN 06/04/20 [History] Past Medical History HEENT History: Reports: Cataract, Impaired Vision Cardiovascular History: Reports: High Cholesterol, Hypertension Respiratory History: Reports: Other (See Below) Other Respiratory History: Had pneumonia as an infant, serious. 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 Neurological History: Reports: TIA Endocrine/Metabolic History: Reports: Diabetes, Type II Oncologic (Cancer) History: Reports: Breast, Other (See Below) Other Oncologic History: bladder - Infectious Disease History Infectious Disease History: Reports: Chicken Pox, Measles, Mumps - Past Surgical History HEENT Surgical History: Reports: Cataract Surgery, Oral Surgery GI Surgical History: Reports: Colonoscopy, Other (See Below) Female Surgical History: Reports: Mastectomy, Other (See Below) Other Female Surgeries/Procedures: bladder cancer Oncologic Surgical History: Reports: Biopsy of Breast, Mastectomy Social & Family History - Family History Family Medical History: No Pertinent Family History - Caffeine Use Caffeine Use: Reports: Coffee, Soda - Living Situation & Occupation Living situation: Reports: Occupation: Retired ED ROS GENERAL - Review of Systems Review Of Systems: Comprehensive ROS is negative, except as noted in HPI. ED EXAM, GENERAL - Physical Exam Exam: See Below Exam Limited By: Other (poor historian) General Appearance: Alert, Mild Distress Throat/Mouth: No Airway Compromise Head: Atraumatic, Normocephalic Neck: Full Range of Motion Respiratory/Chest: No Respiratory Distress, Lungs Clear, Normal Breath Sounds, Other (mild chest wall tenderness bilaterally) Cardiovascular: Regular Rate, Rhythm, No Murmur GI/Abdominal: Normal Bowel Sounds, Soft, No Distention, Tender (moderate gener alized) Extremities: Normal Range of Motion Neurological: Alert Skin Exam: Warm, Dry, Intact #1 Interpretation EKG Date: 06/04/20 Time: 14:07 Rhythm: Other (sinus tachycardia) Rate (Beats/Min): 115 P-Wave: Present QRS: Other (RVH) ST-T: Normal QT: Normal EKG Interpretation Comments: Borderline T abnormalities, anterior leads Course - Orders/Labs/Meds Orders: Active Orders 24 hr Category Date Time Status EKG Documentation Completion [RC] ASDIRECTED Care 06/04/20 14:10 Active Abdomen Pelvis w Cont [CT] Stat Exams 06/04/20 15:58 Taken Ang Chest [CT] Stat Exams 06/04/20 15:57 Taken CULTURE BLOOD [BC] Urgent Lab 06/04/20 14:18 Received CULTURE BLOOD [BC] Urgent Lab 06/04/20 14:25 Received CULTURE URINE [RM] Stat Lab 06/04/20 15:50 Received Heparin Sodium/0.45% NaCl [Heparin 25,000 Units in 1/2 Med 06/04/20 17:15 Active NS 500 ML] 500 ml IV ASDIRECTED Sodium Chloride 0.9% [Saline Flush] Med 06/04/20 14:11 Active 10 ml FLUSH ASDIRECTED PRN Blood Culture x2 Reflex Set [OM.PC] Urgent Oth 06/04/20 14:10 Ordered Saline Lock Insert [OM.PC] Routine Oth 06/04/20 14:11 Ordered EKG 12 Lead [EK] Stat Ther 06/04/20 14:09 Ordered Medication Orders Heparin Sodium/Sodium Chloride (Heparin 25,000 Units In 1/2 Ns 500 Ml) 500 mls @ 25 mls/hr IV ASDIRECTED REGINALDO Sodium Chloride (Saline Flush) 10 ml FLUSH ASDIRECTED PRN PRN Reason: Keep Vein Open Last Admin: 06/04/20 14:18 Dose: 10 ml Documented by: REJI Labs: Laboratory Tests 06/04/20 06/04/20 06/04/20 Range/Units 14:18 14:18 14:18 WBC 12.1 H (3.0-10.3) x10-3/uL RBC 4.71 (3.60-5.20) x10(6)uL Hgb 12.6 (11.4-15.5) g/dL Hct 41.2 (34.2-48.2) % MCV 87.4 (76.7-100.5) fL MCH 26.8 (23.9-33.9) pg MCHC 30.7 L (31.9-34.8) g/dL RDW 17.5 H (12.3-16.5) % Plt Count 320 (151-488) x10(3)uL MPV 7.8 (7.1-12.4) fL Neut % (Auto) 66.3 (30.8-76.2) % Lymph % (Auto) 24.2 (18.4-52.1) % Winn % (Auto) 6.7 (4.4-15.7) % Eos % (Auto) 2.3 (0.6-8.1) % Baso % (Auto) 0.5 (0.2-1.5) % Neut # (Auto) 8.0 H (1.5-6.3) x10-3/uL Lymph # (Auto) 2.9 (1.0-4.4) x10-3/uL Winn # (Auto) 0.8 (0.3-1.0) x10-3/uL Eos # (Auto) 0.3 (0.0-0.8) x10-3/uL Baso # (Auto) 0.1 (0.0-0.1) x10-3/uL PT 11.5 H (9.0-11.1) sec INR 1.06 (1.00-1.24) APTT 27.4 (24.4-33.2) SECONDS D-Dimer, Quantitative 29.49 H (0.0-0.59) mg/LFEU Sodium 137 (135-145) mmol/L Potassium 4.3 (3.5-5.3) mmol/L Chloride 102 (100-110) mmol/L Carbon Dioxide 20 L (21-32) mmol/L BUN 22 H (7-18) mg/dL Creatinine 1.0 (0.55-1.02) mg/dL Est Cr Clr Drug Dosing TNP Estimated GFR (MDRD) 52 L (>60) BUN/Creatinine Ratio 22.0 H (9-20) Glucose 226 H D (80-116) mg/dL Lactic Acid (0.4-2.0) mmol/L Calcium 8.5 L (8.6-10.2) mg/dL Total Bilirubin 0.3 (0.1-1.3) mg/dL AST 44 H D (5-25) IU/L ALT 25 D (12-36) U/L Alkaline Phosphatase 155 H (56-112) IU/L Troponin I (4.0-60.3) pg/mL Total Protein 7.8 (6.0-8.0) g/dL Albumin 2.8 L (3.2-4.6) g/dL Globulin 5.0 g/dL Albumin/Globulin Ratio 0.6 Lipase (73-393) U/L Urine Color (YELLOW) Urine Appearance (CLEAR) Urine pH (5.0-6.5) Ur Specific Whitt (1.010-1.025) Urine Protein (NEGATIVE) mg/dL Urine Glucose (UA) (NORMAL) mg/dL Urine Ketones (NEGATIVE) mg/dL Urine Occult Blood (NEGATIVE) Urine Nitrite (NEGATIVE) Urine Bilirubin (NEGATIVE) Urine Urobilinogen (NEGATIVE) mg/dL Ur Leukocyte Esterase (NEGATIVE) Urine RBC (0-5) Urine WBC (0-5) SARS-CoV-2 RNA (JARRETT) (NEGATIVE) 06/04/20 06/04/20 06/04/20 Range/Units 14:18 14:18 14:18 WBC (3.0-10.3) x10-3/uL RBC (3.60-5.20) x10(6)uL Hgb (11.4-15.5) g/dL Hct (34.2-48.2) % MCV (76.7-100.5) fL MCH (23.9-33.9) pg MCHC (31.9-34.8) g/dL RDW (12.3-16.5) % Plt Count (151-488) x10(3)uL MPV (7.1-12.4) fL Neut % (Auto) (30.8-76.2) % Lymph % (Auto) (18.4-52.1) % Winn % (Auto) (4.4-15.7) % Eos % (Auto) (0.6-8.1) % Baso % (Auto) (0.2-1.5) % Neut # (Auto) (1.5-6.3) x10-3/uL Lymph # (Auto) (1.0-4.4) x10-3/uL Winn # (Auto) (0.3-1.0) x10-3/uL Eos # (Auto) (0.0-0.8) x10-3/uL Baso # (Auto) (0.0-0.1) x10-3/uL PT (9.0-11.1) sec INR (1.00-1.24) APTT (24.4-33.2) SECONDS D-Dimer, Quantitative (0.0-0.59) mg/LFEU Sodium (135-145) mmol/L Potassium (3.5-5.3) mmol/L Chloride (100-110) mmol/L Carbon Dioxide (21-32) mmol/L BUN (7-18) mg/dL Creatinine (0.55-1.02) mg/dL Est Cr Clr Drug Dosing Estimated GFR (MDRD) (>60) BUN/Creatinine Ratio (9-20) Glucose (80-116) mg/dL Lactic Acid 3.5 H* (0.4-2.0) mmol/L Calcium (8.6-10.2) mg/dL Total Bilirubin (0.1-1.3) mg/dL AST (5-25) IU/L ALT (12-36) U/L Alkaline Phosphatase (56-112) IU/L Troponin I 48.5 (4.0-60.3) pg/mL Total Protein (6.0-8.0) g/dL Albumin (3.2-4.6) g/dL Globulin g/dL Albumin/Globulin Ratio Lipase 123 (73-393) U/L Urine Color (YELLOW) Urine Appearance (CLEAR) Urine pH (5.0-6.5) Ur Specific Whitt (1.010-1.025) Urine Protein (NEGATIVE) mg/dL Urine Glucose (UA) (NORMAL) mg/dL Urine Ketones (NEGATIVE) mg/dL Urine Occult Blood (NEGATIVE) Urine Nitrite (NEGATIVE) Urine Bilirubin (NEGATIVE) Urine Urobilinogen (NEGATIVE) mg/dL Ur Leukocyte Esterase (NEGATIVE) Urine RBC (0-5) Urine WBC (0-5) SARS-CoV-2 RNA (JARRETT) (NEGATIVE) 06/04/20 06/04/20 06/04/20 Range/Units 15:43 15:50 16:49 WBC (3.0-10.3) x10-3/uL RBC (3.60-5.20) x10(6)uL Hgb (11.4-15.5) g/dL Hct (34.2-48.2) % MCV (76.7-100.5) fL MCH (23.9-33.9) pg MCHC (31.9-34.8) g/dL RDW (12.3-16.5) % Plt Count (151-488) x10(3)uL MPV (7.1-12.4) fL Neut % (Auto) (30.8-76.2) % Lymph % (Auto) (18.4-52.1) % Winn % (Auto) (4.4-15.7) % Eos % (Auto) (0.6-8.1) % Baso % (Auto) (0.2-1.5) % Neut # (Auto) (1.5-6.3) x10-3/uL Lymph # (Auto) (1.0-4.4) x10-3/uL Winn # (Auto) (0.3-1.0) x10-3/uL Eos # (Auto) (0.0-0.8) x10-3/uL Baso # (Auto) (0.0-0.1) x10-3/uL PT (9.0-11.1) sec INR (1.00-1.24) APTT (24.4-33.2) SECONDS D-Dimer, Quantitative (0.0-0.59) mg/LFEU Sodium (135-145) mmol/L Potassium (3.5-5.3) mmol/L Chloride (100-110) mmol/L Carbon Dioxide (21-32) mmol/L BUN (7-18) mg/dL Creatinine (0.55-1.02) mg/dL Est Cr Clr Drug Dosing Estimated GFR (MDRD) (>60) BUN/Creatinine Ratio (9-20) Glucose (80-116) mg/dL Lactic Acid 1.6 (0.4-2.0) mmol/L Calcium (8.6-10.2) mg/dL Total Bilirubin (0.1-1.3) mg/dL AST (5-25) IU/L ALT (12-36) U/L Alkaline Phosphatase (56-112) IU/L Troponin I (4.0-60.3) pg/mL Total Protein (6.0-8.0) g/dL Albumin (3.2-4.6) g/dL Globulin g/dL Albumin/Globulin Ratio Lipase (73-393) U/L Urine Color Yellow (YELLOW) Urine Appearance Cloudy (CLEAR) Urine pH 6.0 (5.0-6.5) Ur Specific Whitt 1.020 (1.010-1.025) Urine Protein 100 H (NEGATIVE) mg/dL Urine Glucose (UA) Normal (NORMAL) mg/dL Urine Ketones Negative (NEGATIVE) mg/dL Urine Occult Blood Large H (NEGATIVE) Urine Nitrite Negative (NEGATIVE) Urine Bilirubin Negative (NEGATIVE) Urine Urobilinogen Normal (NEGATIVE) mg/dL Ur Leukocyte Esterase Large H (NEGATIVE) Urine RBC Packed H (0-5) Urine WBC Packed H (0-5) SARS-CoV-2 RNA (JARRETT) Negative (NEGATIVE) 06/04/20 Range/Units 16:49 WBC (3.0-10.3) x10-3/uL RBC (3.60-5.20) x10(6)uL Hgb (11.4-15.5) g/dL Hct (34.2-48.2) % MCV (76.7-100.5) fL MCH (23.9-33.9) pg MCHC (31.9-34.8) g/dL RDW (12.3-16.5) % Plt Count (151-488) x10(3)uL MPV (7.1-12.4) fL Neut % (Auto) (30.8-76.2) % Lymph % (Auto) (18.4-52.1) % Winn % (Auto) (4.4-15.7) % Eos % (Auto) (0.6-8.1) % Baso % (Auto) (0.2-1.5) % Neut # (Auto) (1.5-6.3) x10-3/uL Lymph # (Auto) (1.0-4.4) x10-3/uL Winn # (Auto) (0.3-1.0) x10-3/uL Eos # (Auto) (0.0-0.8) x10-3/uL Baso # (Auto) (0.0-0.1) x10-3/uL PT (9.0-11.1) sec INR (1.00-1.24) APTT (24.4-33.2) SECONDS D-Dimer, Quantitative (0.0-0.59) mg/LFEU Sodium (135-145) mmol/L Potassium (3.5-5.3) mmol/L Chloride (100-110) mmol/L Carbon Dioxide (21-32) mmol/L BUN (7-18) mg/dL Creatinine (0.55-1.02) mg/dL Est Cr Clr Drug Dosing Estimated GFR (MDRD) (>60) BUN/Creatinine Ratio (9-20) Glucose (80-116) mg/dL Lactic Acid (0.4-2.0) mmol/L Calcium (8.6-10.2) mg/dL Total Bilirubin (0.1-1.3) mg/dL AST (5-25) IU/L ALT (12-36) U/L Alkaline Phosphatase (56-112) IU/L Troponin I 73.1 H* (4.0-60.3) pg/mL Total Protein (6.0-8.0) g/dL Albumin (3.2-4.6) g/dL Globulin g/dL Albumin/Globulin Ratio Lipase (73-393) U/L Urine Color (YELLOW) Urine Appearance (CLEAR) Urine pH (5.0-6.5) Ur Specific Whitt (1.010-1.025) Urine Protein (NEGATIVE) mg/dL Urine Glucose (UA) (NORMAL) mg/dL Urine Ketones (NEGATIVE) mg/dL Urine Occult Blood (NEGATIVE) Urine Nitrite (NEGATIVE) Urine Bilirubin (NEGATIVE) Urine Urobilinogen (NEGATIVE) mg/dL Ur Leukocyte Esterase (NEGATIVE) Urine RBC (0-5) Urine WBC (0-5) SARS-CoV-2 RNA (JARRETT) (NEGATIVE) Meds: Medications Generic Name Dose Route Start Last Admin Trade Name Macie PRN Reason Stop Dose Admin Heparin Sodium/Sodium Chloride 500 mls @ 25 mls/hr 06/04/20 17:15 Heparin 25,000 Units In 1/2 Ns 500 Ml IV ASDIRECTED REGINALDO Sodium Chloride 10 ml 06/04/20 14:11 06/04/20 14:18 Saline Flush FLUSH 10 ml ASDIRECTED PRN Administration Keep Vein Open Discontinued Medications Generic Name Dose Route Start Last Admin Trade Name Macie PRN Reason Stop Dose Admin Heparin Sodium (Porcine) 5,600 units 06/04/20 17:09 Heparin Sodium IVPUSH 06/04/20 17:10 ONETIME ONE Sodium Chloride 500 mls @ 500 mls/hr 06/04/20 14:11 06/04/20 15:07 Normal Saline IV 06/04/20 15:10 500 mls/hr .BOLUS ONE Administration Sodium Chloride 1,000 mls @ 999 mls/hr 06/04/20 15:41 Normal Saline IV 06/04/20 16:41 .BOLUS ONE Piperacillin Sod/Tazobactam 50 mls @ 100 mls/hr 06/04/20 15:43 06/04/20 17:26 Sod 3.375 gm/ Sodium Chloride IV 06/04/20 16:12 100 mls/hr .ONCE ONE Administration Vancomycin HCl 1 gm/ Premix 200 mls @ 200 mls/hr 06/04/20 15:46 IV 06/04/20 15:47 STAT ONE Iopamidol 100 ml 06/04/20 16:02 06/04/20 16:42 Isovue-370 (76%) IV 06/04/20 16:03 100 ml . DIRECTED ONE Administration Morphine Sulfate 2 mg 06/04/20 14:12 06/04/20 15:09 Morphine IVPUSH 06/04/20 14:13 2 mg ONETIME ONE Administration Pantoprazole Sodium 40 mg 06/04/20 14:11 06/04/20 15:07 Protonix Iv IVPUSH 06/04/20 14:12 40 mg ONETIME ONE Administration - Radiology Interpretation Free Text/Narrative:: CXR: No acute process. (ED provider interpretation) CTA Chest: Right main pulmonary artery thrombus extending to secondary and tertiary arteries of the RLL. Smaller left main pulmonary artery thrombus. The two clots are connected and therefore considered a saddle embolus. No CT evidence for right heart strain. (verbal report from Dr. Moore) CT Abd/Pelvis w/ IV contrast: Moderate stool in the rectum, non-obstructing renal calculi. Cholelithiasis. Thickened urinary bladder. Diverticulosis. (verbal report from Dr. Moore) - Re-Assessments/Exams Free Text/Narrative Re-Assessment/Exam: 06/04/20 17:44 Patient feels better after Morphine 2mg IV. Resting comfortably, no respiratory distress. Sa02 93% 5L 02, HR 120's, BP 124/82. Treatment options discussed with son, he requests no invasive procedures be performed. He would like her admitted to [facility] and keep code status DNR/DNI. He is agreeable with supportive care, IV Heparin drip, and antibiotics to treat UTI. Departure - Departure Time of Disposition: 18:06 Disposition: Admitted As Inpatient 67 Condition: Serious Clinical Impression: Pulmonary emboli Qualifiers: Pulmonary embolism type: saddle Chronicity: acute Acute cor pulmonale presence: without acute cor pulmonale Qualified Code(s): I26.92 - Saddle embolus of pulmonary artery without acute cor pulmonale UTI (urinary tract infection) Qualifiers: Urinary tract infection type: acute cystitis Hematuria presence: with hematuria Qualified Code(s): N30.01 - Acute cystitis with hematuria Forms: ED Department Discharge - My Orders Last 24 Hours: My Active Orders 06/04/20 14:09 EKG 12 Lead [EK] Stat 06/04/20 14:10 EKG Documentation Completion [RC] ASDIRECTED Blood Culture x2 Reflex Set [OM.PC] Urgent 06/04/20 14:11 Sodium Chloride 0.9% [Saline Flush] 10 ml FLUSH ASDIRECTED PRN Saline Lock Insert [OM.PC] Routine 06/04/20 14:18 CULTURE BLOOD [BC] Urgent 06/04/20 14:25 CULTURE BLOOD [BC] Urgent 06/04/20 15:50 CULTURE URINE [RM] Stat 06/04/20 15:57 Ang Chest [CT] Stat 06/04/20 15:58 Abdomen Pelvis w Cont [CT] Stat 06/04/20 17:15 Heparin Sodium/0.45% NaCl [Heparin 25,000 Units in 1/2 NS 500 ML] 500 ml IV ASDIRECTED - Assessment/Plan Last 24 Hours: My Active Orders 06/04/20 14:09 EKG 12 Lead [EK] Stat 06/04/20 14:10 EKG Documentation Completion [RC] ASDIRECTED Blood Culture x2 Reflex Set [OM.PC] Urgent 06/04/20 14:11 Sodium Chloride 0.9% [Saline Flush] 10 ml FLUSH ASDIRECTED PRN Saline Lock Insert [OM.PC] Routine 06/04/20 14:18 CULTURE BLOOD [BC] Urgent 06/04/20 14:25 CULTURE BLOOD [BC] Urgent 06/04/20 15:50 CULTURE URINE [RM] Stat 06/04/20 15:57 Ang Chest [CT] Stat 06/04/20 15:58 Abdomen Pelvis w Cont [CT] Stat 06/04/20 17:15 Heparin Sodium/0.45% NaCl [Heparin 25,000 Units in 1/2 NS 500 ML] 500 ml IV ASDIRECTED
--- NOTE | 2020-06-04 15:28 | CR ---
INDICATION: Chest pain. CHEST ONE VIEW: AP upright portable view of the chest 06/04/20 was compared with 03/02/20 again revealing the heart to be enlarged with the aorta tortuous and calcified in the arch and descending portion. Overlying EKG leads are noted. Diminished bone density is suggested compatible with osteoporosis. Severe degenerative changes are noted at the should joints bilaterally with severe impingement at the right shoulder joint with sclerosis of the acromion noted. A definite active infiltrate or effusion was not identified. IMPRESSION: No acute process. MTDD
[2020-06-04] MEDS ORDERED: Sodium Chloride 0.9% 1,000 ML IV ONE (15:41)
[2020-06-04] MEDS ORDERED: Piperacillin/Tazobactam 3.375 GM in Sodium Chloride 0.9% 50 ML IV ONE (15:43)
[2020-06-04] MEDS ORDERED: VANCOmycin 1 GM/200 ML 1 GM in Premix Bag 1 BAG IV ONE (15:46)
[2020-06-04] MEDS ORDERED: Iopamidol 755 Mg/ML 100 ML Bottle IV ONE (16:02)
[2020-06-04] MEDS ORDERED: Heparin Sodium 5,000 Units/ML Vial IVPUSH ONE (17:09)
[2020-06-04] MEDS ORDERED: Heparin Sodium/0.45% NaCl 500 ML IV SCH ×2 (17:15→18:17)
[2020-06-04] MEDS ORDERED: Morphine 2 MG/ML SYRINGE IVPUSH PRN (18:11)
[2020-06-04] MEDS ORDERED: Ondansetron 4 MG/2 ML SDV IV PRN (18:11)
--- NOTE | 2020-06-04 18:12 | CT ---
INDICATION: Chest pain. COMPUTERIZED TOMOGRAPHY ANGIOGRAPHY OF THE CHEST WITH CONTRAST: Spiral 1.25 mm axial sections were obtained through the chest with 100 mL Isovue-370 at 3 mL per second with sagittal, coronal and axial reconstructions 06/04/20 - no comparisons. Total exam DLP was 788.44 mGy-cm. The mediastinum showed evidence of atherosclerotic change with calcifications in brachiocephalic vessels, arch of the aorta and descending thoracic aorta, as well as coronary arteries. The heart did appear to be somewhat enlarged with prominent pericardium suggesting a small pericardial effusion. Abdominal aortic calcifications are also heavy, as well as splenic artery, superior mesenteric artery, and proximal renal artery calcifications. There is suggestion of cholelithiasis. Pulmonary fibrotic appearing changes with calcified granuloma in the right upper lobe and subpleural densities with a somewhat nodular appearance in the right lower lobe. The possibility of other than benign disease with this appearance is difficult to exclude. Most notable area of abnormalities on axial image 53 (series 4) (series 2 images 145 through 222) with a somewhat nodular subpleural density measuring approximately 15 mm and some additional smaller nodularity in that area more superiorly. Although this may represent postinfectious process or even neoplasia, it may also simply represent pulmonary infarction in this patient with extensive pulmonary embolization. Findings could represent an abscess, but neoplasia is difficult to exclude. There are also some heavy markings in the lingula which may be fibrotic in nature. There is extensive pulmonary embolization of the main pulmonary arteries with the largest amount of clot in the right main pulmonary artery and with filling of the right main pulmonary artery distally, as well as the secondary, tertiary and quaternary pulmonary arteries on the right and secondary, tertiary and quaternary arteries at multiple lobes on the left. This would qualify as a saddle embolus as it extends completely across from right to left pulmonary arteries, but does not extend significantly into the main pulmonary artery. IMPRESSION: 1. Extensive pulmonary emboli with saddle embolus and most severe changes extending into the main pulmonary artery on the right, but with peripheral emboli bilaterally in essentially all lobes. 2. Subpleural densities in the right lower lobe area which may represent pulmonary infarction, although other etiology cannot be excluded. 3. ASHD with coronary artery calcifications and cardiomegaly. 4. ASD. 5. Demineralization suggesting osteomalacia or osteoporosis. 6. Cholelithiasis. Report was given in person to Dr. Salazar immediately after it was available. MTDD
--- NOTE | 2020-06-04 18:27 | CT ---
INDICATION: Abdominal tenderness. CT ABDOMEN AND PELVIS: Spiral 3.75 mm axial sections of the abdomen and pelvis were obtained 06/04/[address] angiography of the chest and revealed thickening of the urinary bladder wall compatible with cystitis - correlate clinically. A very large bolus of stool was noted in the rectum which could represent a fecal impaction, however, there is no gross evidence for mechanically obstructive process at this time. Calcifications are noted in the aorta and major arteries fairly extensively including iliac and femoral, splenic, superior mesenteric, and to lesser extent renal arteries. Minimal calcifications are suggested in the gallbladder compatible with cholelithiasis. On the right at the right kidney in the renal pelvis, there is a 19 mm calculus which has appearance of branching compatible with a minimal staghorn calculus, additional smaller calculus is noted in the lower pole of the right kidney. No definite calculi are seen at the left kidney. No definite obstructive uropathy is seen at this time. The liver had a normal appearance. The spleen appeared normal except for extensive calcification, apparently arterial. No abdominal aortic aneurysm was seen. No retroperitoneal mass was identified. The appendix is not visualized. Dextroconvex scoliosis of the lumbar spine is noted with probable degenerative disk disease at L4-5, L5-S1 with anterolisthesis at both levels, grade 1 and also at L2-3 with hypertrophic spurring off vertebral bodies of mild degree. Arcuate artery calcifications are noted in the uterus. No evidence of free air was identified. Descending and sigmoid diverticulosis is noted without definite evidence of diverticulitis. IMPRESSION: 1. Cholelithiasis, no definite acute cholecystitis. 2. Renal calcinosis on the right, no definite obstructive uropathy. 3. ASD. 4. Diverticulosis coli without definite evidence of diverticulitis. 5. Distended rectum with inspissated appearing stool could represent a fecal impaction, but should be correlated clinically. No obstruction of the bowel was identified secondarily. 6. Degenerative changes, disk disease, scoliosis lumbosacral spine. 7. Thickening of the urinary bladder wall may represent cystitis - correlate clinically. Report was called to Dr. Salazar at 1734 hours. [facility]
[2020-06-04] MEDS ORDERED: Vancomycin 1 GM SDV ONE (18:37)
[2020-06-04] MEDS ORDERED: Magnesium Hydroxide 400 MG/5 ML Susp 30 ML Cup PO PRN (18:42)
[2020-06-04] MEDS ORDERED: Polyethylene Glycol 3350 Powder 17 GM Packet PO PRN (18:42)
[2020-06-04] MEDS ORDERED: 50% Dextrose in Water 50 ML Syringe IVPUSH PRN (18:45)
[2020-06-04] MEDS ORDERED: Glucagon,Human Recombinant 1 MG Vial IM PRN (18:45)
[2020-06-04] MEDS: Acetaminophen 325 MG Tab PO SCH (20:09)
[2020-06-04] MEDS: Melatonin 3 MG Tab PO SCH (20:09)
[2020-06-04] MEDS: Metoprolol Tartrate 25 MG Tab PO SCH (20:11)
[2020-06-04] MEDS: Docusate Sodium 100 MG Cap PO SCH (20:11)
[2020-06-04] MEDS: Sodium Chloride 0.65% Nasal Spray 45 ML Bottle NASBOTH SCH (20:12)
[2020-06-04] MEDS: PEG 400/Propylene Glycol Ophth Soln 15 ML Bottle EYEBOTH SCH (20:14)
[2020-06-04] MEDS: Dorzolamide 2% Ophth Soln 10 ML Bottle EYEBOTH SCH (20:51)
[2020-06-04] MEDS ORDERED: Latanoprost 0.005% Ophth Soln 2.5 ML Bottle EYEBOTH SCH (21:00)
[2020-06-04] MEDS ORDERED: atorvaSTATin 10 MG Tab PO SCH (21:00)
[2020-06-05] MEDS ORDERED: Heparin Sodium/0.45% NaCl 500 ML IV SCH (02:30)
[2020-06-05] MEDS: Heparin Sodium/0.45% NaCl 25,000 UNITS/500 ML BAG IV SCH ×2 (08:00→20:16)
[2020-06-05] MEDS ORDERED: Insulin Lispro 100 Unit/ML 3 ML KwikPen SUBCUT SCH (08:00)
[2020-06-05] MEDS: Docusate Sodium 100 MG Cap PO SCH ×2 (08:44→20:20)
[2020-06-05] MEDS: Escitalopram 10 MG Tab PO SCH (08:45)
[2020-06-05] MEDS: Metoprolol Tartrate 25 MG Tab PO SCH ×2 (08:47→20:20)
[2020-06-05] MEDS: Acetaminophen 325 MG Tab PO SCH ×2 (08:48→20:39)
[2020-06-05] MEDS ORDERED: Cholecalciferol (Vitamin D3) 25 MCG Tab PO SCH (09:00)
[2020-06-05] MEDS ORDERED: Oxybutynin 5 MG Tab PO SCH (09:00)
[2020-06-05] MEDS: Sodium Chloride 0.65% Nasal Spray 45 ML Bottle NASBOTH SCH ×3 (09:02→20:20)
[2020-06-05] MEDS: PEG 400/Propylene Glycol Ophth Soln 15 ML Bottle EYEBOTH SCH ×2 (09:03→20:21)
[2020-06-05] MEDS: Pantoprazole 40 MG Vial IVPUSH SCH (09:10)
[2020-06-05] MEDS: cefTRIAXone 1 GM Vial IVPUSH SCH (09:17)
[2020-06-05] MEDS: Dorzolamide 2% Ophth Soln 10 ML Bottle EYEBOTH SCH ×2 (09:31→20:21)
[2020-06-05] MEDS: SALIVA SUBSTITUTE COMBO NO 9 MUCMEM SCH ×2 (11:18→11:19)
--- NOTE | 2020-06-05 11:27 | PCM.HP.2 ---
H&P History of Present Illness - General Date of Service: 06/05/20 Admit Problem/Dx: Admission Diagnosis/Problem Admission Diagnosis/Problem Pulmonary embolism Source of Information: Patient, EMS Notes Reviewed, Family - History of Present Illness Initial Comments - Free Text/Narative: Presents with sudden onset right sided chest pain & SOB since @1300 06/04. Oxygen at 80%. Denies nausea or abdominal pain. Patient resides at [facility], Code status is DNR/DNI per [place] records, son confirms. 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 She tested positive for COVID on 02/16/20, hospitalized for 3 days did not require oxygen. Her INR was high at the time and was kept to adjust her levels. She had been on Coumadin & vitamin K for provoked DVT from October 2019, had completed 6 months of therapy and was taken off Coumadin but medication list still has Vitamin K. Was started back on Plavix in Apr 2020. She has history of occlusion & stenosis of basilar artery, carotid artery as well. History of bladder & breast cancer. In ER she had elevated WBC 12.1, Lactic acid was elevated but came down to normal with IVF. She received 1 dose of Zosyn in ER. She had elevated troponin 2nd set, Ddimer was 29.49, CTA showed saddle embolism with RV failure. Her son did not want heroic measures done and she was started on Heparin drip, admitted to acute care. Started on Rocephin for UTI, first dose this morning. Her is also at [facility] and they share a room so her son would like her to go back if she is stable. Left Lower Arm Pain Score (Numeric/FACES): 4 R chest & upper abdomen Pain Score (Numeric/FACES): 5 - Related Data Allergies/Adverse Reactions: Allergies Allergy/AdvReac Type Severity Reaction Status Date / Time No Known Allergies Allergy Verified 03/07/19 12:30 Home Medications: Home Meds Cholecalciferol (Vitamin D3) [Vitamin D3] 1,000 units PO DAILY 12/16/15 [History] Clopidogrel [Plavix] 75 mg PO DAILY 12/16/15 [History] Docusate Sodium [Colace] 100 mg PO BID 12/16/15 [History] Latanoprost [Xalatan 0.005% Ophth Soln] 1 drop EYEBOTH BEDTIME 12/16/15 [History] metFORMIN [Glucophage] 500 mg PO WITHBREAKFAST 12/16/15 [History] Dorzolamide [Trusopt 2% Ophth Soln] 1 drop EYEBOTH BID 01/05/17 [History] Propylene Glycol/Peg 400 [Systane 0.3-0.4% Eye Drops] 1 drop EYEBOTH BID 01/05/17 [History] atorvaSTATin [Lipitor] 10 mg PO BEDTIME 01/05/17 [History] Acetaminophen [Tylenol] 650 mg PO BID 06/04/20 [History] Acetaminophen [Tylenol] 650 mg PO TID PRN 06/04/20 [History] Ascorbic Acid [Vitamin C] 1,000 mg PO DAILY 06/04/20 [History] Escitalopram Oxalate [Lexapro] 10 mg PO DAILY 06/04/20 [History] L Acidophil/B Lactis/B Longum [Florajen3] 1 cap PO DAILY 06/04/20 [History] Magnesium Hydroxide [Milk of Magnesia] 30 ml PO DAILY PRN 06/04/20 [History] Melatonin 3 mg PO BEDTIME 06/04/20 [History] Metoprolol Tartrate 12.5 mg PO BID 06/04/20 [History] Oxybutynin 5 mg PO DAILY 06/04/20 [History] Saliva Substitute Combo No.9 [Biotene] 1 dose MUCMEM BID 06/04/20 [History] Sodium Chloride [Saline Nasal [place]] 2 spray NASBOTH TID 06/04/20 [History] Vit C/E/Zn/Coppr/Lutein/Zeaxan [Preservision Areds 2 Softgel] 1 cap PO BID 06/04/20 [History] polyethylene glycoL 3350 [MiraLAX] 17 gm PO DAILY PRN 06/04/20 [History] Past Medical History HEENT History: Reports: Cataract, Glaucoma, Impaired Vision, Macular Degeneration, Other (See Below) Other HEENT History: dry eye syndrome Cardiovascular History: Reports: Arrhythmia, Blood Clots/VTE/DVT, CAD, High Cholesterol, Hypertension Respiratory History: Reports: Other (See Below) Other Respiratory History: Had pneumonia as an , serious. Gastrointestinal History: Reports: Chronic Constipation, Hiatal Hernia Genitourinary History: Reports: Chronic Renal Insuffiency, Renal Disease, Ret ention, Urinary, Urinary Incontinence Other Genitourinary History: stage 2 kidney disease [employer] History: Reports: Other (See Below) Other OB/BYN History: four C section Musculoskeletal History: Reports: Arthritis 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 Neurological History: Reports: TIA Endocrine/Metabolic History: Reports: Diabetes, Type II, Obesity/BMI 30+, Vitamin D Deficiency Hematologic History: Reports: Anticoagulation Therapy Oncologic (Cancer) History: Reports: Breast, Other (See Below) Other Oncologic History: bladder, - Infectious Disease History Infectious Disease History: Reports: Chicken Pox, Measles, Mumps, Novel Coronavirus - Past Surgical History HEENT Surgical History: Reports: Cataract Surgery, Oral Surgery GI Surgical History: Reports: Colonoscopy, Other (See Below) Other GI Surgeries/Procedures: Colonoscopy, resulted in perforated bowel. Female Surgical History: Reports: Mastectomy, Other (See Below) Other Female Surgeries/Procedures: bladder cancer Musculoskeletal Surgical History: Reports: Arthroscopic Knee, Other (See Below) Other Musculoskeletal Surgeries/Procedures:: left Oncologic Surgical History: Reports: Biopsy of Breast, Mastectomy Other Oncologic Surgeries/Procedures: Left mastectomy Social & Family History - Family History Family Medical History: No Pertinent Family History - Tobacco Use Tobacco Use Status *Q: Never Tobacco User - Caffeine Use Caffeine Use: Reports: None - Recreational Drug Use Recreational Drug Use: No - Living Situation & Occupation Living situation: Reports: Occupation: Retired H&P Review of Systems - Review of Systems: Review Of Systems: See Below General: Reports: No Symptoms HEENT: Reports: No Symptoms Pulmonary: Reports: Shortness of Breath Cardiovascular: Reports: Chest Pain Gastrointestinal: Reports: No Symptoms Genitourinary: Reports: Incontinence Musculoskeletal: Reports: No Symptoms Skin: Reports: No Symptoms Hematologic/Lymphatic: Reports: Easy Bleeding, Easy Bruising Exam - Exam Exam: See Below - Vital Signs Vital Signs: Last Vital Signs Temp 98.0 F 06/05/20 08:00 Pulse 88 06/05/20 08:47 Resp 24 H 06/05/20 08:00 BP 112/58 L 06/05/20 08:47 Pulse Ox 81 L 06/05/20 08:00 Weight: 122 lb 1 oz - Exam General: Alert, Oriented, Cooperative, Mild Distress HEENT: PERRLA, Conjunctiva Clear, EOMI, Hearing Intact. No: Mucosa Moist & [place] Neck: Supple, Trachea Midline. No: Lymphadenopathy Lungs: Clear to Auscultation (BUL), Decreased Breath Sounds (RML, BLL). No: Stridor, Wheezing Cardiovascular: Tachycardia GI/Abdominal Exam: Soft, Non-Tender, No Distention, Abnormal Bowel Sounds (hypoactive) (Female) Exam: Deferred Rectal (Female) Exam: Deferred Extremities: No Pedal Edema, Normal Capillary Refill Peripheral Pulses: 2+: Radial (L), Radial (R) Skin: Warm, Dry, Intact Neurological: Cranial Nerves Intact - Patient Data Lab Results Last 24 hrs: Laboratory Results - last 24 hr 06/04/20 06/04/20 06/04/20 Range/Units 14:18 14:18 14:18 WBC 12.1 H (3.0-10.3) x10-3/uL RBC 4.71 (3.60-5.20) x10(6)uL Hgb 12.6 (11.4-15.5) g/dL Hct 41.2 (34.2-48.2) % MCV 87.4 (76.7-100.5) fL MCH 26.8 (23.9-33.9) pg MCHC 30.7 L (31.9-34.8) g/dL RDW 17.5 H (12.3-16.5) % Plt Count 320 (151-488) x10(3)uL MPV 7.8 (7.1-12.4) fL Neut % (Auto) 66.3 (30.8-76.2) % Lymph % (Auto) 24.2 (18.4-52.1) % [place] % (Auto) 6.7 (4.4-15.7) % Eos % (Auto) 2.3 (0.6-8.1) % Baso % (Auto) 0.5 (0.2-1.5) % Neut # (Auto) 8.0 H (1.5-6.3) x10-3/uL Lymph # (Auto) 2.9 (1.0-4.4) x10-3/uL [place] # (Auto) 0.8 (0.3-1.0) x10-3/uL Eos # (Auto) 0.3 (0.0-0.8) x10-3/uL Baso # (Auto) 0.1 (0.0-0.1) x10-3/uL PT 11.5 H (9.0-11.1) sec INR 1.06 (1.00-1.24) APTT 27.4 (24.4-33.2) SECONDS D-Dimer, Quantitative 29.49 H (0.0-0.59) mg/LFEU Sodium 137 (135-145) mmol/L Potassium 4.3 (3.5-5.3) mmol/L Chloride 102 (100-110) mmol/L Carbon Dioxide 20 L (21-32) mmol/L BUN 22 H (7-18) mg/dL Creatinine 1.0 (0.55-1.02) mg/dL Est Cr Clr Drug Dosing TNP Estimated GFR (MDRD) 52 L (>60) BUN/Creatinine Ratio 22.0 H (9-20) Glucose 226 H D (80-116) mg/dL Lactic Acid (0.4-2.0) mmol/L Calcium 8.5 L (8.6-10.2) mg/dL Total Bilirubin 0.3 (0.1-1.3) mg/dL AST 44 H D (5-25) IU/L ALT 25 D (12-36) U/L Alkaline Phosphatase 155 H (56-112) IU/L Troponin I (4.0-60.3) pg/mL Total Protein 7.8 (6.0-8.0) g/dL Albumin 2.8 L (3.2-4.6) g/dL Globulin 5.0 g/dL Albumin/Globulin Ratio 0.6 Lipase (73-393) U/L Urine Color (YELLOW) Urine Appearance (CLEAR) Urine pH (5.0-6.5) Ur Specific [place] (1.010-1.025) Urine Protein (NEGATIVE) mg/dL Urine Glucose (UA) (NORMAL) mg/dL Urine Ketones (NEGATIVE) mg/dL Urine Occult Blood (NEGATIVE) Urine Nitrite (NEGATIVE) Urine Bilirubin (NEGATIVE) Urine Urobilinogen (NEGATIVE) mg/dL Ur Leukocyte Esterase (NEGATIVE) Urine RBC (0-5) Urine WBC (0-5) SARS-CoV-2 RNA (JARRETT) (NEGATIVE) 06/04/20 06/04/20 06/04/20 Range/Units 14:18 14:18 14:18 WBC (3.0-10.3) x10-3/uL RBC (3.60-5.20) x10(6)uL Hgb (11.4-15.5) g/dL Hct (34.2-48.2) % MCV (76.7-100.5) fL MCH (23.9-33.9) pg MCHC (31.9-34.8) g/dL RDW (12.3-16.5) % Plt Count (151-488) x10(3)uL MPV (7.1-12.4) fL Neut % (Auto) (30.8-76.2) % Lymph % (Auto) (18.4-52.1) % [place] % (Auto) (4.4-15.7) % Eos % (Auto) (0.6-8.1) % Baso % (Auto) (0.2-1.5) % Neut # (Auto) (1.5-6.3) x10-3/uL Lymph # (Auto) (1.0-4.4) x10-3/uL [place] # (Auto) (0.3-1.0) x10-3/uL Eos # (Auto) (0.0-0.8) x10-3/uL Baso # (Auto) (0.0-0.1) x10-3/uL PT (9.0-11.1) sec INR (1.00-1.24) APTT (24.4-33.2) SECONDS D-Dimer, Quantitative (0.0-0.59) mg/LFEU Sodium (135-145) mmol/L Potassium (3.5-5.3) mmol/L Chloride (100-110) mmol/L Carbon Dioxide (21-32) mmol/L BUN (7-18) mg/dL Creatinine (0.55-1.02) mg/dL Est Cr Clr Drug Dosing Estimated GFR (MDRD) (>60) BUN/Creatinine Ratio (9-20) Glucose (80-116) mg/dL Lactic Acid 3.5 H* (0.4-2.0) mmol/L Calcium (8.6-10.2) mg/dL Total Bilirubin (0.1-1.3) mg/dL AST (5-25) IU/L ALT (12-36) U/L Alkaline Phosphatase (56-112) IU/L Troponin I 48.5 (4.0-60.3) pg/mL Total Protein (6.0-8.0) g/dL Albumin (3.2-4.6) g/dL Globulin g/dL Albumin/Globulin Ratio Lipase 123 (73-393) U/L Urine Color (YELLOW) Urine Appearance (CLEAR) Urine pH (5.0-6.5) Ur Specific [place] (1.010-1.025) Urine Protein (NEGATIVE) mg/dL Urine Glucose (UA) (NORMAL) mg/dL Urine Ketones (NEGATIVE) mg/dL Urine Occult Blood (NEGATIVE) Urine Nitrite (NEGATIVE) Urine Bilirubin (NEGATIVE) Urine Urobilinogen (NEGATIVE) mg/dL Ur Leukocyte Esterase (NEGATIVE) Urine RBC (0-5) Urine WBC (0-5) SARS-CoV-2 RNA (JARRETT) (NEGATIVE) 06/04/20 06/04/20 06/04/20 Range/Units 15:43 15:50 16:49 WBC (3.0-10.3) x10-3/uL RBC (3.60-5.20) x10(6)uL Hgb (11.4-15.5) g/dL Hct (34.2-48.2) % MCV (76.7-100.5) fL MCH (23.9-33.9) pg MCHC (31.9-34.8) g/dL RDW (12.3-16.5) % Plt Count (151-488) x10(3)uL MPV (7.1-12.4) fL Neut % (Auto) (30.8-76.2) % Lymph % (Auto) (18.4-52.1) % [place] % (Auto) (4.4-15.7) % Eos % (Auto) (0.6-8.1) % Baso % (Auto) (0.2-1.5) % Neut # (Auto) (1.5-6.3) x10-3/uL Lymph # (Auto) (1.0-4.4) x10-3/uL [place] # (Auto) (0.3-1.0) x10-3/uL Eos # (Auto) (0.0-0.8) x10-3/uL Baso # (Auto) (0.0-0.1) x10-3/uL PT (9.0-11.1) sec INR (1.00-1.24) APTT (24.4-33.2) SECONDS D-Dimer, Quantitative (0.0-0.59) mg/LFEU Sodium (135-145) mmol/L Potassium (3.5-5.3) mmol/L Chloride (100-110) mmol/L Carbon Dioxide (21-32) mmol/L BUN (7-18) mg/dL Creatinine (0.55-1.02) mg/dL Est Cr Clr Drug Dosing Estimated GFR (MDRD) (>60) BUN/Creatinine Ratio (9-20) Glucose (80-116) mg/dL Lactic Acid 1.6 (0.4-2.0) mmol/L Calcium (8.6-10.2) mg/dL Total Bilirubin (0.1-1.3) mg/dL AST (5-25) IU/L ALT (12-36) U/L Alkaline Phosphatase (56-112) IU/L Troponin I (4.0-60.3) pg/mL Total Protein (6.0-8.0) g/dL Albumin (3.2-4.6) g/dL Globulin g/dL Albumin/Globulin Ratio Lipase (73-393) U/L Urine Color Yellow (YELLOW) Urine Appearance Cloudy (CLEAR) Urine pH 6.0 (5.0-6.5) Ur Specific [place] 1.020 (1.010-1.025) Urine Protein 100 H (NEGATIVE) mg/dL Urine Glucose (UA) Normal (NORMAL) mg/dL Urine Ketones Negative (NEGATIVE) mg/dL Urine Occult Blood Large H (NEGATIVE) Urine Nitrite Negative (NEGATIVE) Urine Bilirubin Negative (NEGATIVE) Urine Urobilinogen Normal (NEGATIVE) mg/dL Ur Leukocyte Esterase Large H (NEGATIVE) Urine RBC Packed H (0-5) Urine WBC Packed H (0-5) SARS-CoV-2 RNA (JARRETT) Negative (NEGATIVE) 06/04/20 06/05/20 06/05/20 Range/Units 16:49 00:10 06:25 WBC 10.8 H (3.0-10.3) x10-3/uL RBC 4.22 (3.60-5.20) x10(6)uL Hgb 11.4 (11.4-15.5) g/dL Hct 36.9 (34.2-48.2) % MCV 87.6 (76.7-100.5) fL MCH 27.1 (23.9-33.9) pg MCHC 31.0 L (31.9-34.8) g/dL RDW 17.7 H (12.3-16.5) % Plt Count 253 (151-488) x10(3)uL MPV 7.9 (7.1-12.4) fL Neut % (Auto) 74.4 (30.8-76.2) % Lymph % (Auto) 15.1 L (18.4-52.1) % [place] % (Auto) 9.3 (4.4-15.7) % Eos % (Auto) 0.8 (0.6-8.1) % Baso % (Auto) 0.4 (0.2-1.5) % Neut # (Auto) 8.0 H (1.5-6.3) x10-3/uL Lymph # (Auto) 1.6 (1.0-4.4) x10-3/uL [place] # (Auto) 1.0 (0.3-1.0) x10-3/uL Eos # (Auto) 0.1 (0.0-0.8) x10-3/uL Baso # (Auto) 0.0 (0.0-0.1) x10-3/uL PT (9.0-11.1) sec INR (1.00-1.24) APTT 123.8 H* (24.4-33.2) SECONDS D-Dimer, Quantitative (0.0-0.59) mg/LFEU Sodium (135-145) mmol/L Potassium (3.5-5.3) mmol/L Chloride (100-110) mmol/L Carbon Dioxide (21-32) mmol/L BUN (7-18) mg/dL Creatinine (0.55-1.02) mg/dL Est Cr Clr Drug Dosing Estimated GFR (MDRD) (>60) BUN/Creatinine Ratio (9-20) Glucose (80-116) mg/dL Lactic Acid (0.4-2.0) mmol/L Calcium (8.6-10.2) mg/dL Total Bilirubin (0.1-1.3) mg/dL AST (5-25) IU/L ALT (12-36) U/L Alkaline Phosphatase (56-112) IU/L Troponin I 73.1 H* (4.0-60.3) pg/mL Total Protein (6.0-8.0) g/dL Albumin (3.2-4.6) g/dL Globulin g/dL Albumin/Globulin Ratio Lipase (73-393) U/L Urine Color (YELLOW) Urine Appearance (CLEAR) Urine pH (5.0-6.5) Ur Specific [place] (1.010-1.025) Urine Protein (NEGATIVE) mg/dL Urine Glucose (UA) (NORMAL) mg/dL Urine Ketones (NEGATIVE) mg/dL Urine Occult Blood (NEGATIVE) Urine Nitrite (NEGATIVE) Urine Bilirubin (NEGATIVE) Urine Urobilinogen (NEGATIVE) mg/dL Ur Leukocyte Esterase (NEGATIVE) Urine RBC (0-5) Urine WBC (0-5) SARS-CoV-2 RNA (JARRETT) (NEGATIVE) 06/05/20 06/05/20 Range/Units 06:25 06:25 WBC (3.0-10.3) x10-3/uL RBC (3.60-5.20) x10(6)uL Hgb (11.4-15.5) g/dL Hct (34.2-48.2) % MCV (76.7-100.5) fL MCH (23.9-33.9) pg MCHC (31.9-34.8) g/dL RDW (12.3-16.5) % Plt Count (151-488) x10(3)uL MPV (7.1-12.4) fL Neut % (Auto) (30.8-76.2) % Lymph % (Auto) (18.4-52.1) % [place] % (Auto) (4.4-15.7) % Eos % (Auto) (0.6-8.1) % Baso % (Auto) (0.2-1.5) % Neut # (Auto) (1.5-6.3) x10-3/uL Lymph # (Auto) (1.0-4.4) x10-3/uL [place] # (Auto) (0.3-1.0) x10-3/uL Eos # (Auto) (0.0-0.8) x10-3/uL Baso # (Auto) (0.0-0.1) x10-3/uL PT (9.0-11.1) sec INR (1.00-1.24) APTT 88.1 H* (24.4-33.2) SECONDS D-Dimer, Quantitative (0.0-0.59) mg/LFEU Sodium 142 (135-145) mmol/L Potassium 4.1 (3.5-5.3) mmol/L Chloride 108 D (100-110) mmol/L Carbon Dioxide 22 (21-32) mmol/L BUN 18 (7-18) mg/dL Creatinine 0.7 (0.55-1.02) mg/dL Est Cr Clr Drug Dosing 39.90 Estimated GFR (MDRD) > 60 (>60) BUN/Creatinine Ratio 25.7 H (9-20) Glucose 119 H D (80-116) mg/dL Lactic Acid (0.4-2.0) mmol/L Calcium 8.1 L (8.6-10.2) mg/dL Total Bilirubin (0.1-1.3) mg/dL AST (5-25) IU/L ALT (12-36) U/L Alkaline Phosphatase (56-112) IU/L Troponin I (4.0-60.3) pg/mL Total Protein (6.0-8.0) g/dL Albumin (3.2-4.6) g/dL Globulin g/dL Albumin/Globulin Ratio Lipase (73-393) U/L Urine Color (YELLOW) Urine Appearance (CLEAR) Urine pH (5.0-6.5) Ur Specific [place] (1.010-1.025) Urine Protein (NEGATIVE) mg/dL Urine Glucose (UA) (NORMAL) mg/dL Urine Ketones (NEGATIVE) mg/dL Urine Occult Blood (NEGATIVE) Urine Nitrite (NEGATIVE) Urine Bilirubin (NEGATIVE) Urine Urobilinogen (NEGATIVE) mg/dL Ur Leukocyte Esterase (NEGATIVE) Urine RBC (0-5) Urine WBC (0-5) SARS-CoV-2 RNA (JARRETT) (NEGATIVE) Result Diagrams: 06/05/20 06:25 06/05/20 06:25 Sepsis Event Note - Evaluation Sepsis Screening Result: No Definite Risk - Focused Exam Vital Signs: Vital Signs Temp Temp Pulse Pulse Resp BP BP 06/05/20 08:47 88 112/58 L 06/05/20 08:00 98.0 F 88 24 H 114/58 L 06/05/20 06:10 06/05/20 06:00 97.1 F 89 18 112/68 06/05/20 00:00 97.1 F 104 H 22 H 128/76 Pulse Ox Pulse Ox 06/05/20 08:47 06/05/20 08:00 81 L 06/05/20 06:10 93 L 06/05/20 06:00 93 L 06/05/20 00:00 93 L *Q Meaningful Use (ADM) - VTE *Q VTE Mechanical Contraindications *Q: At Risk for Falls - VTE Risk Assess *Q Each Risk Factor Represents 1 Point: None Total Score 1 Point Risk Factors: 0 Each Risk Factor Represents 2 Points: None Total Score 2 Point Risk Factors: 0 Each Risk Factor Represents 3 Points: Age 75 Years or Greater, History of DVT/PE Total Score 3 Point Risk Factors: 6 Each Risk Factor Represents 5 Points: None Total Score 5 Point Risk Factors: 0 Venous Thromboembolism Risk Factor Score *Q: 6 - Problem List (1) Pulmonary emboli SNOMED Code(s): 24122463 ICD Code: I26.99 - OTHER PULMONARY EMBOLISM WITHOUT ACUTE COR PULMONALE Status: Acute Current Visit: Yes Qualifiers: Pulmonary embolism type: saddle Chronicity: acute Acute cor pulmonale presence: without acute cor pulmonale Qualified Code(s): I26.92 - Saddle embolus of pulmonary artery without acute cor pulmonale (2) Acute right ventricular heart failure SNOMED Code(s): 812080572 ICD Code: I50.811 - ACUTE RIGHT HEART FAILURE Status: Acute Current Visit: Yes (3) UTI (urinary tract infection) SNOMED Code(s): 03128252 ICD Code: N39.0 - URINARY TRACT INFECTION, SITE NOT SPECIFIED Status: Acute Current Visit: Yes Qualifiers: Urinary tract infection type: acute cystitis Hematuria presence: with hematuria Qualified Code(s): N30.01 - Acute cystitis with hematuria (4) Palliative care status SNOMED Code(s): 439310845 ICD Code: Z51.5 - ENCOUNTER FOR PALLIATIVE CARE Status: Acute Current Visit: Yes (5) Basilar artery occlusion SNOMED Code(s): 627187793, 037231040 ICD Code: I65.1 - OCCLUSION AND STENOSIS OF BASILAR ARTERY Status: Chronic Current Visit: Yes Onset Date: 07/28/06 (6) Cerebral atherosclerosis SNOMED Code(s): 59433652 ICD Code: I67.2 - CEREBRAL ATHEROSCLEROSIS Status: Chronic Current Visit: Yes Onset Date: 02/23/06 (7) Carotid artery occlusion Status: Chronic Current Visit: Yes Onset Date: 07/28/06 (8) Hyperlipidemia SNOMED Code(s): 62774347 ICD Code: E78.5 - HYPERLIPIDEMIA, UNSPECIFIED Status: Chronic Current Visit: Yes (9) Diabetes SNOMED Code(s): 52827280 ICD Code: E11.9 - TYPE 2 DIABETES MELLITUS WITHOUT COMPLICATIONS Status: Chronic Current Visit: Yes (10) History of breast cancer SNOMED Code(s): 227540868 ICD Code: Z85.3 - PERSONAL HISTORY OF MALIGNANT NEOPLASM OF BREAST Status: Chronic Current Visit: Yes (11) History of bladder cancer SNOMED Code(s): 998013766, 567010559 ICD Code: Z85.51 - PERSONAL HISTORY OF MALIGNANT NEOPLASM OF BLADDER Status: Chronic Current Visit: Yes (12) DVT (deep venous thrombosis) SNOMED Code(s): 288276072 ICD Code: I82.409 - ACUTE EMBOLISM AND THOMBOS UNSP DEEP VN UNSP LOWER EXTREMITY Status: Chronic Current Visit: Yes Onset Date: ~10/2019 Qualifiers: DVT location: lower extremity Problem List Initiated/Reviewed/Updated: Yes Orders Last 24hrs: Active Orders 24 hr Category Date Time Status Admission Status [Patient Status] [ADT] Routine ADT 06/04/20 17:30 Active Bedrest [RC] ASDIRECTED Care 06/05/20 09:32 Active Blood Glucose Check, Bedside [RC] 07,11,16,21 Care 06/04/20 18:11 Active Height and Weight [RC] 06 Care 02/23/21 18:11 Active Intake and Output [RC] QSHIFT Care 06/04/20 18:11 Active Notify Provider Vital Signs [RC] ASDIRECTED Care 06/04/20 18:12 Active Oxygen Therapy [RC] PRN Care 06/04/20 18:11 Active Pulse Oximetry [RC] INTERMITTENT Care 06/04/20 18:11 Active Up With Assistance [RC] ASDIRECTED Care 06/04/20 18:11 Active VTE/DVT Education [RC] Per Unit Routine Care 06/04/20 18:11 Active Vital Signs [RC] QSHIFT Care 06/04/20 18:11 Active Consistent Carbohydrate Diet [DIET] Diet 06/05/20 Breakfast Active CULTURE BLOOD [BC] Urgent Lab 06/04/20 14:18 Received CULTURE BLOOD [BC] Urgent Lab 06/04/20 14:25 Received CULTURE URINE [RM] Stat Lab 06/04/20 15:50 Received aPTT [PTT,PARTIAL THROMBOPLSTIN TIME] [COAG] 1230,1830 Lab 06/05/20 12:30 Ordered aPTT [PTT,PARTIAL THROMBOPLSTIN TIME] [COAG] 1230,1830 Lab 06/05/20 18:30 Ordered Acetaminophen [TylenoL] Med 06/04/20 21:00 Active 650 mg PO BID Docusate Sodium [Colace] Med 06/04/20 21:00 Active 100 mg PO BID Dorzolamide [Trusopt 2% Ophth Soln] Med 06/04/20 21:00 Active 0 ml EYEBOTH BID Escitalopram [Lexapro] Med 06/05/20 09:00 Active 10 mg PO DAILY Heparin Sodium/0.45% NaCl [Heparin 25,000 Units in 1/2 Med 06/05/20 08:00 Active NS 500 ML] 25,000 units in 500 ml IV TITRATE Latanoprost [Xalatan 0.005% Ophth Soln] Med 06/05/20 08:17 Active 0 ml EYEBOTH BEDTIME Magnesium Hydroxide [Milk of Magnesia] Med 06/04/20 18:42 Active 30 ml PO DAILY PRN Melatonin Med 06/04/20 21:00 Active 3 mg PO BEDTIME Metoprolol Tartrate [Lopressor] Med 06/04/20 21:00 Active 12.5 mg PO BID Morphine Med 06/04/20 18:11 Active 2 mg IVPUSH Q2H PRN Ondansetron [Zofran] Med 06/04/20 18:11 Active 4 mg IV Q8H PRN PEG 400/Propylene Glycol [Systane Lubricant] Med 06/04/20 21:00 Active 0 ml EYEBOTH BID Pantoprazole [ProTONIX IV] Med 06/05/20 09:00 Active 40 mg IVPUSH Q24H Sodium Chloride 0.65% [Bledsoe Nasal [place]] Med 06/04/20 21:00 Active 0 ml NASBOTH TID Sodium Chloride 0.9% [Saline Flush] Med 06/04/20 14:11 Active 10 ml FLUSH ASDIRECTED PRN cefTRIAXone [Rocephin] Med 06/05/20 09:00 Active 1 gm IVPUSH Q24H polyethylene glycoL 3350 [MiraLAX] Med 06/04/20 18:42 Active 17 gm PO DAILY PRN Blood Culture x2 Reflex Set [OM.PC] Urgent Oth 06/04/20 14:10 Ordered Saline Lock Insert [OM.PC] Routine Oth 06/04/20 14:11 Ordered Resuscitation Status Routine Resus Stat 06/04/20 18:11 Ordered EKG 12 Lead [EK] Stat Ther 06/04/20 14:09 Ordered Medication Orders Acetaminophen (Tylenol) 650 mg PO BID PENDING SALE TO [facility] Last Admin: 06/05/20 08:48 Dose: 650 mg Documented by: Admin: 06/04/20 20:09 Dose: 650 mg Documented by: JANNIE Ceftriaxone Sodium (Rocephin) 1 gm IVPUSH Q24H PENDING SALE TO [facility] Last Admin: 06/05/20 09:17 Dose: 1 gm Documented by: BRIANA Docusate Sodium (Colace) 100 mg PO BID PENDING SALE TO [facility] Last Admin: 06/05/20 08:44 Dose: 100 mg Documented by: Admin: 06/04/20 20:11 Dose: 100 mg Documented by: JANNIE Dorzolamide HCl (Trusopt 2% Ophth Soln) 0 ml EYEBOTH BID PENDING SALE TO [facility] Last Admin: 06/05/20 09:31 Dose: 1 drop Documented by: Admin: 06/04/20 20:51 Dose: 1 drop Documented by: JANNIE Escitalopram Oxalate (Lexapro) 10 mg PO DAILY PENDING SALE TO [facility] Last Admin: 06/05/20 08:45 Dose: 10 mg Documented by: BRIANA Heparin Sodium/Sodium Chloride (Heparin 25,000 Units In 1/2 Ns 500 Ml) 25,000 units in 500 mls @ 18.803 mls/hr IV TITRATE PENDING SALE TO [facility]; Protocol Last Admin: 06/05/20 08:00 Dose: 16.98 units/kg/hr, 18.803 mls/hr Documented by: JANNIE Cosigned by: IGNACIA Latanoprost (Xalatan 0.005% Ophth Soln) 0 ml EYEBOTH BEDTIME PENDING SALE TO [facility] Magnesium Hydroxide (Milk Of Magnesia) 30 ml PO DAILY PRN PRN Reason: Constipation Melatonin (Melatonin) 3 mg PO BEDTIME PENDING SALE TO [facility] Last Admin: 06/04/20 20:09 Dose: 3 mg Documented by: JANNIE Metoprolol Tartrate (Lopressor) 12.5 mg PO BID PENDING SALE TO [facility] Last Admin: 06/05/20 08:47 Dose: 12.5 mg Documented by: Admin: 06/04/20 20:11 Dose: 12.5 mg Documented by: JANNIE Morphine Sulfate (Morphine) 2 mg IVPUSH Q2H PRN PRN Reason: Pain (severe 7-10) Ondansetron HCl (Zofran) 4 mg IV Q8H PRN PRN Reason: Nausea/Vomiting Pantoprazole Sodium (Protonix Iv) 40 mg IVPUSH Q24H PENDING SALE TO [facility] Last Admin: 06/05/20 09:10 Dose: 40 mg Documented by: BRIANA Polyethylene Glycol (Miralax) 17 gm PO DAILY PRN PRN Reason: Constipation Propylene Glycol (Systane Lubricant) 0 ml EYEBOTH BID PENDING SALE TO [facility] Last Admin: 06/05/20 09:03 Dose: 1 drop Documented by: Admin: 06/04/20 20:14 Dose: 1 drop Documented by: JANNIE Sodium Chloride (Saline Flush) 10 ml FLUSH ASDIRECTED PRN PRN Reason: Keep Vein Open Last Admin: 06/04/20 18:10 Dose: 10 ml Documented by: Admin: 06/04/20 14:18 Dose: 10 ml Documented by: REJI Sodium Chloride (Bledsoe Nasal [place]) 0 ml NASBOTH TID PENDING SALE TO [facility] Last Admin: 06/05/20 09:02 Dose: 2 spray Documented by: Admin: 06/04/20 20:12 Dose: 1 spray Documented by: JANNIE Assessment/Plan Comment:: 1. Admit for inpatient treatment of saddle pulmonary embolism, acute right ventricular heart failure, UTI. 2. PE/RVF: Heparin drip per protocol for 48hr, PTT q6h until 2 levels in ther apeutic range, then transition to Eliquis 2.5 bid. Oxygen to keep saturation 90%. Discussed with her son that with extent of clot in her lungs hard to say if she will respond to heparin & treatment. Would not repeat CTA at this time as would not see a difference this soon. If she continues to eat & drink and survives next 48 hours, & continues to be stable we could transfer back to [facility] to be with her . Discontinued Vitamin K, Oxybutynin, Insulin, Lipitor, Plavix. 3. UTI: Rocephin 1 gram IV q24h, urine & blood culture pending. 4. Diet: Change her to regular diet. 5. Activity: Bedrest, incontinent briefs. 6. DVT prophylaxis: on heparin drip for PE. 7. CODE STATUS: DNR/DNI. Her condition is critical at this point, she may respond to heparin drip and turn the corner so she can go back to [place] to be with her . If she worsens, will readdress comfort measures. - Mortality Measure Prognosis:: Poor
[2020-06-05] MEDS: Melatonin 3 MG Tab PO SCH (20:20)
[2020-06-05] MEDS: Latanoprost 0.005% Ophth Soln 2.5 ML Bottle EYEBOTH SCH (20:21)
[2020-06-06] MEDS: Metoprolol Tartrate 25 MG Tab PO SCH ×2 (09:53→21:13)
[2020-06-06] MEDS: Escitalopram 10 MG Tab PO SCH (09:53)
[2020-06-06] MEDS: Docusate Sodium 100 MG Cap PO SCH ×2 (09:53→21:12)
[2020-06-06] MEDS: Sodium Chloride 0.65% Nasal Spray 45 ML Bottle NASBOTH SCH ×3 (09:54→21:18)
[2020-06-06] MEDS: Pantoprazole 40 MG Vial IVPUSH SCH (09:55)
[2020-06-06] MEDS: PEG 400/Propylene Glycol Ophth Soln 15 ML Bottle EYEBOTH SCH ×2 (09:55→21:18)
[2020-06-06] MEDS: Acetaminophen 325 MG Tab PO SCH ×2 (09:55→21:12)
[2020-06-06] MEDS: cefTRIAXone 1 GM Vial IVPUSH SCH (09:55)
[2020-06-06] MEDS: Dorzolamide 2% Ophth Soln 10 ML Bottle EYEBOTH SCH ×2 (09:55→21:18)
[2020-06-06] MEDS: Sodium Chloride 0.9% 10 ML Syringe FLUSH PRN (10:06)
--- NOTE | 2020-06-06 10:18 | PCM.PN ---
- General Info Date of Service: 06/06/20 Subjective Update: Violet has been tolerating her diet, her breathing is still labored, requiring 5 L on nasal cannula today. Having smears of brown stool. Incontinent of urine. No abdominal pain, nausea, vomiting or diarrhea. Functional Status: Reports: Pain Controlled, Tolerating Diet, Urinating - Patient Data Vitals - Most Recent: Last Vital Signs Temp 97.8 F 06/06/20 08:00 Pulse 86 06/06/20 09:53 Resp 20 06/06/20 08:00 BP 120/76 06/06/20 09:53 Pulse Ox 91 L 06/06/20 08:00 Weight - Most Recent: 122 lb 1.6 oz I&O - Last 24 Hours: Intake & Output 06/05/20 06/06/20 06/06/20 22:59 06:59 14:59 Intake Total 126 142 Balance 126 142 Lab Results Last 24 Hours: Laboratory Results - last 24 hr 06/04/20 06/05/20 06/05/20 Range/Units 22:13 12:14 12:40 WBC (3.0-10.3) x10-3/uL RBC (3.60-5.20) x10(6)uL Hgb (11.4-15.5) g/dL Hct (34.2-48.2) % MCV (76.7-100.5) fL MCH (23.9-33.9) pg MCHC (31.9-34.8) g/dL RDW (12.3-16.5) % Plt Count (151-488) x10(3)uL MPV (7.1-12.4) fL Neut % (Auto) (30.8-76.2) % Lymph % (Auto) (18.4-52.1) % Coffee % (Auto) (4.4-15.7) % Eos % (Auto) (0.6-8.1) % Baso % (Auto) (0.2-1.5) % Neut # (Auto) (1.5-6.3) x10-3/uL Lymph # (Auto) (1.0-4.4) x10-3/uL Coffee # (Auto) (0.3-1.0) x10-3/uL Eos # (Auto) (0.0-0.8) x10-3/uL Baso # (Auto) (0.0-0.1) x10-3/uL APTT 73.2 H* (24.4-33.2) SECONDS Sodium (135-145) mmol/L Potassium (3.5-5.3) mmol/L Chloride (100-110) mmol/L Carbon Dioxide (21-32) mmol/L BUN (7-18) mg/dL Creatinine (0.55-1.02) mg/dL Est Cr Clr Drug Dosing mL/min Estimated GFR (MDRD) (>60) BUN/Creatinine Ratio (9-20) Glucose (80-116) mg/dL POC Glucose 182 H 118 H (74-100) mg/dL Calcium (8.6-10.2) mg/dL 06/05/20 06/05/20 06/05/20 Range/Units 17:41 18:40 20:43 WBC (3.0-10.3) x10-3/uL RBC (3.60-5.20) x10(6)uL Hgb (11.4-15.5) g/dL Hct (34.2-48.2) % MCV (76.7-100.5) fL MCH (23.9-33.9) pg MCHC (31.9-34.8) g/dL RDW (12.3-16.5) % Plt Count (151-488) x10(3)uL MPV (7.1-12.4) fL Neut % (Auto) (30.8-76.2) % Lymph % (Auto) (18.4-52.1) % Coffee % (Auto) (4.4-15.7) % Eos % (Auto) (0.6-8.1) % Baso % (Auto) (0.2-1.5) % Neut # (Auto) (1.5-6.3) x10-3/uL Lymph # (Auto) (1.0-4.4) x10-3/uL Coffee # (Auto) (0.3-1.0) x10-3/uL Eos # (Auto) (0.0-0.8) x10-3/uL Baso # (Auto) (0.0-0.1) x10-3/uL APTT 57.7 H (24.4-33.2) SECONDS Sodium (135-145) mmol/L Potassium (3.5-5.3) mmol/L Chloride (100-110) mmol/L Carbon Dioxide (21-32) mmol/L BUN (7-18) mg/dL Creatinine (0.55-1.02) mg/dL Est Cr Clr Drug Dosing mL/min Estimated GFR (MDRD) (>60) BUN/Creatinine Ratio (9-20) Glucose (80-116) mg/dL POC Glucose 159 H 185 H (74-100) mg/dL Calcium (8.6-10.2) mg/dL 06/06/20 06/06/20 06/06/20 Range/Units 00:30 06:35 06:35 WBC 10.5 H (3.0-10.3) x10-3/uL RBC 4.20 (3.60-5.20) x10(6)uL Hgb 11.3 L (11.4-15.5) g/dL Hct 36.6 (34.2-48.2) % MCV 87.3 (76.7-100.5) fL MCH 27.0 (23.9-33.9) pg MCHC 31.0 L (31.9-34.8) g/dL RDW 17.8 H (12.3-16.5) % Plt Count 248 (151-488) x10(3)uL MPV 8.0 (7.1-12.4) fL Neut % (Auto) 69.9 (30.8-76.2) % Lymph % (Auto) 17.0 L (18.4-52.1) % Coffee % (Auto) 11.3 (4.4-15.7) % Eos % (Auto) 1.1 (0.6-8.1) % Baso % (Auto) 0.7 (0.2-1.5) % Neut # (Auto) 7.3 H (1.5-6.3) x10-3/uL Lymph # (Auto) 1.8 (1.0-4.4) x10-3/uL Coffee # (Auto) 1.2 H (0.3-1.0) x10-3/uL Eos # (Auto) 0.1 (0.0-0.8) x10-3/uL Baso # (Auto) 0.1 (0.0-0.1) x10-3/uL APTT 51.2 H (24.4-33.2) SECONDS Sodium 141 (135-145) mmol/L Potassium 4.0 (3.5-5.3) mmol/L Chloride 106 (100-110) mmol/L Carbon Dioxide 23 (21-32) mmol/L BUN 19 H (7-18) mg/dL Creatinine 0.7 (0.55-1.02) mg/dL Est Cr Clr Drug Dosing 39.90 mL/min Estimated GFR (MDRD) > 60 (>60) BUN/Creatinine Ratio 27.1 H (9-20) Glucose 132 H (80-116) mg/dL POC Glucose (74-100) mg/dL Calcium 8.4 L (8.6-10.2) mg/dL 06/06/20 Range/Units 06:35 WBC (3.0-10.3) x10-3/uL RBC (3.60-5.20) x10(6)uL Hgb (11.4-15.5) g/dL Hct (34.2-48.2) % MCV (76.7-100.5) fL MCH (23.9-33.9) pg MCHC (31.9-34.8) g/dL RDW (12.3-16.5) % Plt Count (151-488) x10(3)uL MPV (7.1-12.4) fL Neut % (Auto) (30.8-76.2) % Lymph % (Auto) (18.4-52.1) % Coffee % (Auto) (4.4-15.7) % Eos % (Auto) (0.6-8.1) % Baso % (Auto) (0.2-1.5) % Neut # (Auto) (1.5-6.3) x10-3/uL Lymph # (Auto) (1.0-4.4) x10-3/uL Coffee # (Auto) (0.3-1.0) x10-3/uL Eos # (Auto) (0.0-0.8) x10-3/uL Baso # (Auto) (0.0-0.1) x10-3/uL APTT 50.2 H (24.4-33.2) SECONDS Sodium (135-145) mmol/L Potassium (3.5-5.3) mmol/L Chloride (100-110) mmol/L Carbon Dioxide (21-32) mmol/L BUN (7-18) mg/dL Creatinine (0.55-1.02) mg/dL Est Cr Clr Drug Dosing mL/min Estimated GFR (MDRD) (>60) BUN/Creatinine Ratio (9-20) Glucose (80-116) mg/dL POC Glucose (74-100) mg/dL Calcium (8.6-10.2) mg/dL Isaac Results Last 24 Hours: Microbiology 06/04/20 15:50 Urine Culture - Preliminary Urine, Catheterized Gram Positive Cocci 06/04/20 14:25 Aerobic Blood Culture - Preliminary Blood - Venous - Lab Draw NO GROWTH AFTER 1 DAY Anaerobic Blood Culture - Preliminary NO GROWTH AFTER 1 DAY 06/04/20 14:18 Aerobic Blood Culture - Preliminary Blood - Venous NO GROWTH AFTER 1 DAY Anaerobic Blood Culture - Preliminary NO GROWTH AFTER 1 DAY Med Orders - Current: Current Medications Acetaminophen (Tylenol) 650 mg PO BID [facility] Last Admin: 06/06/20 09:55 Dose: 650 mg Documented by: Apixaban (Eliquis) 10 mg PO BID [facility] Stop: 06/13/20 18:01 Ceftriaxone Sodium (Rocephin) 1 gm IVPUSH Q24H [facility] Last Admin: 06/06/20 09:55 Dose: 1 gm Documented by: Docusate Sodium (Colace) 100 mg PO BID [facility] Last Admin: 06/06/20 09:53 Dose: 100 mg Documented by: Dorzolamide HCl (Trusopt 2% Ophth Soln) 0 ml EYEBOTH BID [facility] Last Admin: 06/06/20 09:55 Dose: 1 drop Documented by: Escitalopram Oxalate (Lexapro) 10 mg PO DAILY [facility] Last Admin: 06/06/20 09:53 Dose: 10 mg Documented by: Heparin Sodium/Sodium Chloride (Heparin 25,000 Units In 1/2 Ns 500 Ml) 25,000 units in 500 mls @ 18.803 mls/hr IV TITRATE [facility]; Protocol Stop: 06/06/20 18:00 Last Admin: 06/05/20 20:16 Dose: 14.9 units/kg/hr, 16.5 mls/hr Documented by: Latanoprost (Xalatan 0.005% Ophth Soln) 0 ml EYEBOTH BEDTIME [facility] Last Admin: 06/05/20 20:21 Dose: 1 drop Documented by: Magnesium Hydroxide (Milk Of Magnesia) 30 ml PO DAILY PRN PRN Reason: Constipation Melatonin (Melatonin) 3 mg PO BEDTIME [facility] Last Admin: 06/05/20 20:20 Dose: 3 mg Documented by: Metoprolol Tartrate (Lopressor) 12.5 mg PO BID [facility] Last Admin: 06/06/20 09:53 Dose: 12.5 mg Documented by: Morphine Sulfate (Morphine) 2 mg IVPUSH Q2H PRN PRN Reason: Pain (severe 7-10) Ondansetron HCl (Zofran) 4 mg IV Q8H PRN PRN Reason: Nausea/Vomiting Pantoprazole Sodium (Protonix Iv) 40 mg IVPUSH Q24H [facility] Last Admin: 06/06/20 09:55 Dose: 40 mg Documented by: Polyethylene Glycol (Miralax) 17 gm PO DAILY PRN PRN Reason: Constipation Propylene Glycol (Systane Lubricant) 0 ml EYEBOTH BID [facility] Last Admin: 06/06/20 09:55 Dose: 1 drop Documented by: Sodium Chloride (Saline Flush) 10 ml FLUSH ASDIRECTED PRN PRN Reason: Keep Vein Open Last Admin: 06/04/20 18:10 Dose: 10 ml Documented by: Sodium Chloride ([place] Nasal [place]) 0 ml NASBOTH TID [facility] Last Admin: 06/06/20 09:54 Dose: 2 spray Documented by: Discontinued Medications Atorvastatin Calcium (Lipitor) 10 mg PO BEDTIME [facility] Last Admin: 06/04/20 20:12 Dose: 10 mg Documented by: Cholecalciferol (Vitamin D3) 25 mcg PO DAILY [facility] Last Admin: 06/05/20 08:48 Dose: 25 mcg Documented by: Dextrose/Water (Dextrose 50% In Water) 50 ml IVPUSH ASDIRECTED PRN PRN Reason: Hypoglycemia Glucagon (Glucagen) 1 mg IM ASDIRECTED PRN PRN Reason: Hypoglycemia Heparin Sodium (Porcine) (Heparin Sodium) 5,600 units IVPUSH ONETIME ONE Stop: 06/04/20 17:10 Last Admin: 06/04/20 18:00 Dose: 5,600 units Documented by: Sodium Chloride (Normal Saline) 500 mls @ 500 mls/hr IV .BOLUS ONE Stop: 06/04/20 15:10 Last Admin: 06/04/20 15:07 Dose: 500 mls/hr Documented by: Sodium Chloride (Normal Saline) 1,000 mls @ 999 mls/hr IV .BOLUS ONE Stop: 06/04/20 16:41 Last Admin: 06/04/20 16:27 Dose: 999 mls/hr Documented by: Piperacillin Sod/Tazobactam (Sod 3.375 gm/ Sodium Chloride) 50 mls @ 100 mls/hr IV .ONCE ONE Stop: 06/04/20 16:12 Last Admin: 06/04/20 17:26 Dose: 100 mls/hr Documented by: Vancomycin HCl 1 gm/ Premix 200 mls @ 200 mls/hr IV STAT ONE Stop: 06/04/20 15:47 Last Admin: 06/04/20 19:22 Dose: Not Given Documented by: Heparin Sodium/Sodium Chloride (Heparin 25,000 Units In 1/2 Ns 500 Ml) 500 mls @ 25 mls/hr IV ASDIRECTED REGINALDO Last Infusion: 06/05/20 00:30 Dose: 0 mls/hr Documented by: Heparin Sodium/Sodium Chloride (Heparin 25,000 Units In 1/2 Ns 500 Ml) 500 mls @ 25 mls/hr IV ASDIRECTED REGINALDO; Protocol Heparin Sodium/Sodium Chloride (Heparin 25,000 Units In 1/2 Ns 500 Ml) 500 mls @ 20 mls/hr IV ASDIRECTED [facility]GIN[facility] Last Infusion: 06/05/20 07:25 Dose: 21 mls/hr Documented by: Insulin Human Lispro (Humalog) 0 unit SUBCUT TIDMEALS [facility]AL[facility]; Protocol Last Admin: 06/05/20 08:43 Dose: Not Given Documented by: Iopamidol (Isovue-370 (76%)) 100 ml IV . DIRECTED ONE Stop: 06/04/20 16:03 Last Admin: 06/04/20 16:42 Dose: 100 ml Documented by: Latanoprost (Xalatan 0.005% Oph Soln) 0 ml EYEBOTH BEDTIME [facility] Last Admin: 06/04/20 20:13 Dose: 1 drop Documented by: Morphine Sulfate (Morphine) 2 mg IVPUSH ONETIME ONE Stop: 06/04/20 14:13 Last Admin: 06/04/20 15:09 Dose: 2 mg Documented by: Non-Formulary Medication (Saliva Substitute Combo No.9 [Biotene]) 1 dose MUCMEM BID [facility] Last Admin: 06/05/20 11:19 Dose: Not Given Documented by: Oxybutynin Chloride (Oxybutynin) 5 mg PO DAILY [facility] Last Admin: 06/05/20 08:47 Dose: 5 mg Documented by: Pantoprazole Sodium (Protonix Iv) 40 mg IVPUSH ONETIME ONE Stop: 06/04/20 14:12 Last Admin: 06/04/20 15:07 Dose: 40 mg Documented by: Vancomycin HCl (Vancomycin) Confirm Administered Dose 1 gm .ROUTE .STK-MED ONE Stop: 06/04/20 18:38 Last Admin: 06/04/20 19:22 Dose: Not Given Documented by: - Exam Quality Assessment: Supplemental Oxygen General: Alert, Oriented, Cooperative, Mild Distress Lungs: Clear to Auscultation (BUL), Decreased Breath Sounds (Bibasilar), Crackles (LLL). No: Normal Respiratory Effort, Wheezing Cardiovascular: Regular Rate, Regular Rhythm GI/Abdominal Exam: Normal Bowel Sounds, Soft, Non-Tender, No Distention Extremities: No Pedal Edema Peripheral Pulses: 2+: Radial (L), Radial (R) - Patient Data Lab Results Last 24 hrs: Laboratory Results - last 24 hr 06/04/20 06/05/20 06/05/20 Range/Units 22:13 12:14 12:40 WBC (3.0-10.3) x10-3/uL RBC (3.60-5.20) x10(6)uL Hgb (11.4-15.5) g/dL Hct (34.2-48.2) % MCV (76.7-100.5) fL MCH (23.9-33.9) pg MCHC (31.9-34.8) g/dL RDW (12.3-16.5) % Plt Count (151-488) x10(3)uL MPV (7.1-12.4) fL Neut % (Auto) (30.8-76.2) % Lymph % (Auto) (18.4-52.1) % Coffee % (Auto) (4.4-15.7) % Eos % (Auto) (0.6-8.1) % Baso % (Auto) (0.2-1.5) % Neut # (Auto) (1.5-6.3) x10-3/uL Lymph # (Auto) (1.0-4.4) x10-3/uL Coffee # (Auto) (0.3-1.0) x10-3/uL Eos # (Auto) (0.0-0.8) x10-3/uL Baso # (Auto) (0.0-0.1) x10-3/uL APTT 73.2 H* (24.4-33.2) SECONDS Sodium (135-145) mmol/L Potassium (3.5-5.3) mmol/L Chloride (100-110) mmol/L Carbon Dioxide (21-32) mmol/L BUN (7-18) mg/dL Creatinine (0.55-1.02) mg/dL Est Cr Clr Drug Dosing mL/min Estimated GFR (MDRD) (>60) BUN/Creatinine Ratio (9-20) Glucose (80-116) mg/dL POC Glucose 182 H 118 H (74-100) mg/dL Calcium (8.6-10.2) mg/dL 06/05/20 06/05/20 06/05/20 Range/Units 17:41 18:40 20:43 WBC (3.0-10.3) x10-3/uL RBC (3.60-5.20) x10(6)uL Hgb (11.4-15.5) g/dL Hct (34.2-48.2) % MCV (76.7-100.5) fL MCH (23.9-33.9) pg MCHC (31.9-34.8) g/dL RDW (12.3-16.5) % Plt Count (151-488) x10(3)uL MPV (7.1-12.4) fL Neut % (Auto) (30.8-76.2) % Lymph % (Auto) (18.4-52.1) % Coffee % (Auto) (4.4-15.7) % Eos % (Auto) (0.6-8.1) % Baso % (Auto) (0.2-1.5) % Neut # (Auto) (1.5-6.3) x10-3/uL Lymph # (Auto) (1.0-4.4) x10-3/uL Coffee # (Auto) (0.3-1.0) x10-3/uL Eos # (Auto) (0.0-0.8) x10-3/uL Baso # (Auto) (0.0-0.1) x10-3/uL APTT 57.7 H (24.4-33.2) SECONDS Sodium (135-145) mmol/L Potassium (3.5-5.3) mmol/L Chloride (100-110) mmol/L Carbon Dioxide (21-32) mmol/L BUN (7-18) mg/dL Creatinine (0.55-1.02) mg/dL Est Cr Clr Drug Dosing mL/min Estimated GFR (MDRD) (>60) BUN/Creatinine Ratio (9-20) Glucose (80-116) mg/dL POC Glucose 159 H 185 H (74-100) mg/dL Calcium (8.6-10.2) mg/dL 06/06/20 06/06/20 06/06/20 Range/Units 00:30 06:35 06:35 WBC 10.5 H (3.0-10.3) x10-3/uL RBC 4.20 (3.60-5.20) x10(6)uL Hgb 11.3 L (11.4-15.5) g/dL Hct 36.6 (34.2-48.2) % MCV 87.3 (76.7-100.5) fL MCH 27.0 (23.9-33.9) pg MCHC 31.0 L (31.9-34.8) g/dL RDW 17.8 H (12.3-16.5) % Plt Count 248 (151-488) x10(3)uL MPV 8.0 (7.1-12.4) fL Neut % (Auto) 69.9 (30.8-76.2) % Lymph % (Auto) 17.0 L (18.4-52.1) % Coffee % (Auto) 11.3 (4.4-15.7) % Eos % (Auto) 1.1 (0.6-8.1) % Baso % (Auto) 0.7 (0.2-1.5) % Neut # (Auto) 7.3 H (1.5-6.3) x10-3/uL Lymph # (Auto) 1.8 (1.0-4.4) x10-3/uL Coffee # (Auto) 1.2 H (0.3-1.0) x10-3/uL Eos # (Auto) 0.1 (0.0-0.8) x10-3/uL Baso # (Auto) 0.1 (0.0-0.1) x10-3/uL APTT 51.2 H (24.4-33.2) SECONDS Sodium 141 (135-145) mmol/L Potassium 4.0 (3.5-5.3) mmol/L Chloride 106 (100-110) mmol/L Carbon Dioxide 23 (21-32) mmol/L BUN 19 H (7-18) mg/dL Creatinine 0.7 (0.55-1.02) mg/dL Est Cr Clr Drug Dosing 39.90 mL/min Estimated GFR (MDRD) > 60 (>60) BUN/Creatinine Ratio 27.1 H (9-20) Glucose 132 H (80-116) mg/dL POC Glucose (74-100) mg/dL Calcium 8.4 L (8.6-10.2) mg/dL 06/06/20 Range/Units 06:35 WBC (3.0-10.3) x10-3/uL RBC (3.60-5.20) x10(6)uL Hgb (11.4-15.5) g/dL Hct (34.2-48.2) % MCV (76.7-100.5) fL MCH (23.9-33.9) pg MCHC (31.9-34.8) g/dL RDW (12.3-16.5) % Plt Count (151-488) x10(3)uL MPV (7.1-12.4) fL Neut % (Auto) (30.8-76.2) % Lymph % (Auto) (18.4-52.1) % Coffee % (Auto) (4.4-15.7) % Eos % (Auto) (0.6-8.1) % Baso % (Auto) (0.2-1.5) % Neut # (Auto) (1.5-6.3) x10-3/uL Lymph # (Auto) (1.0-4.4) x10-3/uL Coffee # (Auto) (0.3-1.0) x10-3/uL Eos # (Auto) (0.0-0.8) x10-3/uL Baso # (Auto) (0.0-0.1) x10-3/uL APTT 50.2 H (24.4-33.2) SECONDS Sodium (135-145) mmol/L Potassium (3.5-5.3) mmol/L Chloride (100-110) mmol/L Carbon Dioxide (21-32) mmol/L BUN (7-18) mg/dL Creatinine (0.55-1.02) mg/dL Est Cr Clr Drug Dosing mL/min Estimated GFR (MDRD) (>60) BUN/Creatinine Ratio (9-20) Glucose (80-116) mg/dL POC Glucose (74-100) mg/dL Calcium (8.6-10.2) mg/dL Result Diagrams: 06/06/20 06:35 06/06/20 06:35 Isaac Results Last 24 hrs: Microbiology 06/04/20 15:50 Urine Culture - Preliminary Urine, Catheterized Gram Positive Cocci 06/04/20 14:25 Aerobic Blood Culture - Preliminary Blood - Venous - Lab Draw NO GROWTH AFTER 1 DAY Anaerobic Blood Culture - Preliminary NO GROWTH AFTER 1 DAY 06/04/20 14:18 Aerobic Blood Culture - Preliminary Blood - Venous NO GROWTH AFTER 1 DAY Anaerobic Blood Culture - Preliminary NO GROWTH AFTER 1 DAY Sepsis Event Note - Evaluation Sepsis Screening Result: No Definite Risk - Focused Exam Vital Signs: Vital Signs Temp Pulse Pulse Resp BP BP Pulse Ox 06/06/20 09:53 86 120/76 06/06/20 08:00 97.8 F 86 20 116/78 91 L 06/06/20 00:00 98 F 79 20 92 L - Problem List & Annotations (1) Pulmonary emboli SNOMED Code(s): 23782784 Code(s): I26.99 - OTHER PULMONARY EMBOLISM WITHOUT ACUTE COR PULMONALE Status: Acute Current Visit: Yes Qualifiers: Pulmonary embolism type: saddle Chronicity: acute Acute cor pulmonale presence: without acute cor pulmonale Qualified Code(s): I26.92 - Saddle embolus of pulmonary artery without acute cor pulmonale (2) Acute right ventricular heart failure SNOMED Code(s): 362008721 Code(s): I50.811 - ACUTE RIGHT HEART FAILURE Status: Acute Current Visit: Yes (3) UTI (urinary tract infection) SNOMED Code(s): 43746181 Code(s): N39.0 - URINARY TRACT INFECTION, SITE NOT SPECIFIED Status: Acute Current Visit: Yes Qualifiers: Urinary tract infection type: acute cystitis Hematuria presence: with hematuria Qualified Code(s): N30.01 - Acute cystitis with hematuria (4) Palliative care status SNOMED Code(s): 435301014 Code(s): Z51.5 - ENCOUNTER FOR PALLIATIVE CARE Status: Acute Current Visit: Yes (5) Basilar artery occlusion SNOMED Code(s): 735841046, 352109878 Code(s): I65.1 - OCCLUSION AND STENOSIS OF BASILAR ARTERY Status: Chronic Current Visit: Yes Onset Date: 07/28/06 (6) Cerebral atherosclerosis SNOMED Code(s): 76085141 Code(s): I67.2 - CEREBRAL ATHEROSCLEROSIS Status: Chronic Current Visit: Yes Onset Date: 02/23/06 (7) Carotid artery occlusion Status: Chronic Current Visit: Yes Onset Date: 07/28/06 (8) Hyperlipidemia SNOMED Code(s): 30077874 Code(s): E78.5 - HYPERLIPIDEMIA, UNSPECIFIED Status: Chronic Current Visit: Yes (9) Diabetes SNOMED Code(s): 04386188 Code(s): E11.9 - TYPE 2 DIABETES MELLITUS WITHOUT COMPLICATIONS Status: Chronic Current Visit: Yes (10) History of breast cancer SNOMED Code(s): 057099096 Code(s): Z85.3 - PERSONAL HISTORY OF MALIGNANT NEOPLASM OF BREAST Status: Chronic Current Visit: Yes (11) History of bladder cancer SNOMED Code(s): 164381357, 080137630 Code(s): Z85.51 - PERSONAL HISTORY OF MALIGNANT NEOPLASM OF BLADDER Status: Chronic Current Visit: Yes (12) DVT (deep venous thrombosis) SNOMED Code(s): 602447037 Code(s): I82.409 - ACUTE EMBOLISM AND THOMBOS UNSP DEEP VN UNSP LOWER EXTREMITY Status: Chronic Current Visit: Yes Onset Date: ~10/2019 Qualifiers: DVT location: lower extremity - Problem List Review Problem List Initiated/Reviewed/Updated: Yes - My Orders Last 24 Hours: My Active Orders 06/05/20 09:32 Bedrest [RC] ASDIRECTED 06/05/20 Lunch Regular Diet [DIET] 06/06/20 18:00 Apixaban [Eliquis] 10 mg PO BID 06/07/20 05:00 CORONAVIRUS COVID-19 JARRETT [MOLEC] Routine 06/07/20 06:00 BASIC METABOLIC PANEL,BMP [CHEM] Routine CBC WITH AUTO DIFF [HEME] Routine - Plan Plan:: 1. PE/RVF: Heparin drip per protocol for 48hr will end tonight at 1800, then transition to Eliquis 10 mg bid dose for PE treatment. Oxygen to keep saturation 90%. Goal to get back to [place] her , [place] is unsure about taking her on the weekend if they have enough oxygen in house. If unable to go [facility] tomorrow, then would have to stay the weekend and maybe home Wednesday. Discontinued Vitamin K, Oxybutynin, Insulin, Lipitor, Plavix. 2. UTI: Rocephin 1 gram IV q24h, urine culture: GPC, blood culture no growth to date. 3. Diet: regular diet. 4. Activity: incontinent briefs. 5. DVT prophylaxis: on heparin drip for PE until 1800 then switch to Eliquis 10 mg bid(to start at 1800) x 7 days then 5 mg bid for lifetime. 6. CODE STATUS: DNR/DNI. Her condition is guarded at this point, she may respond to heparin drip/Eliquis and turn the corner so she can go back to [place] to be with her . If she worsens, will readdress comfort measures.
[2020-06-06] MEDS: Apixaban 5 MG Tab PO SCH (18:12)
[2020-06-06] MEDS: Melatonin 3 MG Tab PO SCH (21:14)
[2020-06-06] MEDS: Latanoprost 0.005% Ophth Soln 2.5 ML Bottle EYEBOTH SCH (21:17)
[2020-06-07] MEDS: Metoprolol Tartrate 25 MG Tab PO SCH (09:21)
[2020-06-07] MEDS: Acetaminophen 325 MG Tab PO SCH (09:21)
[2020-06-07] MEDS: Escitalopram 10 MG Tab PO SCH (09:21)
[2020-06-07] MEDS: Dorzolamide 2% Ophth Soln 10 ML Bottle EYEBOTH SCH (09:22)
[2020-06-07] MEDS: cefTRIAXone 1 GM Vial IVPUSH SCH (09:22)
[2020-06-07] MEDS: Pantoprazole 40 MG Vial IVPUSH SCH (09:22)
[2020-06-07] MEDS: Apixaban 5 MG Tab PO SCH (09:22)
[2020-06-07] MEDS: PEG 400/Propylene Glycol Ophth Soln 15 ML Bottle EYEBOTH SCH (09:22)
[2020-06-07] MEDS: Sodium Chloride 0.65% Nasal Spray 45 ML Bottle NASBOTH SCH (09:22)
[2020-06-07] MEDS: Docusate Sodium 100 MG Cap PO SCH (09:22)
[2020-06-07 09:41] VITALS: BP 121/73; PULSE 88
--- NOTE | 2020-06-07 14:20 | DISCH ---
DISCHARGE DATE: 06/07/2020 Acute saddle embolus, with right ventricular failure. Please see Dr. Young's clinical admission history and physical. The patient was started on intravenous heparin after modalities and treatment discussed. Supportive measures in place. Required supplemental O2. She had been placed on 48 hours of intravenous heparin, with clinical benefit. Given circumstances in health and treatment supportive management, we switched to Eliquis on 06/06/2020. Doing well since that time. Planning to return to [facility]. PHYSICAL EXAMINATION: VITAL SIGNS: 36.9, 88, 121/73, respirations 14 to 22, 93% on 5 L. GENERAL: A frail appearing female, cooperative, conversant. Speech was fluent. NECK: Benign. No JVD. CHEST: Decreased breath sounds and coarse rhonchi. HEART: Distant heart sounds. Occasional ectopy. Soft murmur. ABDOMEN: Benign. Acute pulmonary embolism, saddle embolism. PLAN: Discharge to [facility], supportive measures with palliative care. We will continue Eliquis therapy. Medications were adjusted accordingly. DISCHARGE MEDICATIONS: Please see med recon list. ADDENDUM: 30-minute visit planning care and discharge from hospital. /[id number] RAYMOND/ELIAZAR
== END 2020-06-07 10:40 | DRG 176 ==
LOC: FB.ED 13:58 → FB.MS 17:30
PROVIDERS: ADMIT Family Medicine; ATTEND Family Medicine
DX: I26.92 Saddle embolus of pulmonary artery without acute cor pulmonale (principal); N30.01 Acute cystitis with hematuria; I82.509 Chronic embolism and thrombosis of unspecified deep veins of unspecified lower extremity; I50.811 Acute right heart failure; Z66 Do not resuscitate; Z51.5 Encounter for palliative care; I65.1 Occlusion and stenosis of basilar artery; I67.2 Cerebral atherosclerosis; E78.5 Hyperlipidemia, unspecified; E11.22 Type 2 diabetes mellitus with diabetic chronic kidney disease; H54.7 Unspecified visual loss; H35.30 Unspecified macular degeneration; H04.129 Dry eye syndrome of unspecified lacrimal gland; E78.00 Pure hypercholesterolemia, unspecified; K59.09 Other constipation; I10 Essential (primary) hypertension; R33.9 Retention of urine, unspecified; N18.2 Chronic kidney disease, stage 2 (mild); E66.9 Obesity, unspecified; E55.9 Vitamin D deficiency, unspecified; Z98.49 Cataract extraction status, unspecified eye; K44.9 Diaphragmatic hernia without obstruction or gangrene; Z85.51 Personal history of malignant neoplasm of bladder; Z79.01 Long term (current) use of anticoagulants; R32 Unspecified urinary incontinence; Z86.16 Personal history of COVID-19; M19.90 Unspecified osteoarthritis, unspecified site; E11.9 Type 2 diabetes mellitus without complications; Z86.73 Personal history of transient ischemic attack (TIA), and cerebral infarction without residual deficits; Z90.12 Acquired absence of left breast and nipple; Z68.24 Body mass index [BMI] 24.0-24.9, adult; Z85.3 Personal history of malignant neoplasm of breast; Z79.84 Long term (current) use of oral hypoglycemic drugs; Z79.02 Long term (current) use of antithrombotics/antiplatelets; Z79.899 Other long term (current) drug therapy; Z20.822 Contact with and (suspected) exposure to COVID-19
CPT/HCPCS: 36415; 71045; 71275; 74177; 80053; 81001; 83605 ×2; 83690; 84484 ×2; 85025; 85379; 85610; 85730; 87040 ×2; 87086; 87088; 87186; 93005; 96374; 96375; 99285; C9113; J2270; J2543; J7030; J7040; Q9967; U0002; 80048; 82962; 93010; A9270-GY; J0696; J1644; J1815

== ENCOUNTER 2021-04-08 13:48 | Inpatient (IN) | payer MEDICARE, BC ==
[2021-04-08] MEDS ORDERED: Ondansetron 4 MG Tab.DIS PO PRN (15:17)
[2021-04-08] MEDS ORDERED: Sodium Chloride 0.65% Nasal Spray 45 ML Bottle NASBOTH PRN (15:21)
[2021-04-08] MEDS ORDERED: Acetaminophen 325 MG Tab PO PRN (15:21)
[2021-04-08] MEDS ORDERED: Polyethylene Glycol 3350 Powder 17 GM Packet PO PRN (15:21)
[2021-04-08] MEDS ORDERED: Magnesium Hydroxide 400 MG/5 ML Susp 30 ML Cup PO PRN (15:21)
[2021-04-08] MEDS ORDERED: Enoxaparin 30 MG/0.3 ML Syringe SUBCUT SCH (15:30)
[2021-04-08] MEDS ORDERED: Sodium Chloride 0.45% 1,000 ML IV SCH (15:30)
[2021-04-08] MEDS: Sodium Chloride 0.9% 10 ML Syringe FLUSH PRN (16:03)
--- NOTE | 2021-04-08 18:14 | PCM.HP.2 ---
H&P History of Present Illness - General Date of Service: 04/08/21 Admit Problem/Dx: Admission Diagnosis/Problem Admission Diagnosis/Problem Hypernatremia Source of Information: Old Records, Provider History Limitations: Reports: Altered Mental Status - History of Present Illness Initial Comments - Free Text/Narative: 89-year-old lady direct admitted to the hospital from her halfway due to lethargy. When I interviewed the patient she seemed to answer some questions appropriately but other questions she just repeated her same answers. She is likely oriented to person only. Review of labs performed outside the hospital today shows elevated white blood cell count at 13.7, elevated hemoglobin hematocrit likely secondary to dehydration, sodium 151 also likely secondary to dehydration, creatinine was normal and GFR is mildly reduced from previous, 03/25/2021 but still greater than 60. Urinalysis was obtained when the patient was brought to the hospital and showed likely urinary tract infection, culture has been started. Patient will be started on ceftriaxone 1 g daily. Review of chest x-ray shows no definite acute process. However, radiology stated that it is difficult to exclude patchy pneumonia in the left lower lobe. Heart size was normal. ASHD was seen on chest x-ray. - Related Data Allergies/Adverse Reactions: Allergies Allergy/AdvReac Type Severity Reaction Status Date / Time No Known Allergies Allergy Verified 03/07/19 12:30 Home Medications: Home Meds Docusate Sodium [Colace] 100 mg PO BID 12/16/15 [History] Latanoprost [Xalatan 0.005% Ophth Soln] 1 drop EYEBOTH BEDTIME 12/16/15 [History] Propylene Glycol/Peg 400 [Systane 0.3-0.4% Eye Drops] 1 drop EYEBOTH BID 01/05/17 [History] Acetaminophen [Tylenol] 650 mg PO BID 06/04/20 [History] Acetaminophen [Tylenol] 650 mg PO TID PRN 06/04/20 [History] Escitalopram Oxalate [Lexapro] 10 mg PO DAILY 06/04/20 [History] Magnesium Hydroxide [Milk of Magnesia] 30 ml PO DAILY PRN 06/04/20 [History] Melatonin 3 mg PO BEDTIME 06/04/20 [History] Metoprolol Tartrate 12.5 mg PO BID 06/04/20 [History] Sodium Chloride [Saline Nasal [place]] 2 spray NASBOTH TID PRN 06/04/20 [History] polyethylene glycoL 3350 [MiraLAX] 17 gm PO DAILY PRN 06/04/20 [History] Apixaban [Eliquis] 5 mg PO BID 30 Days #60 tablet 06/06/20 [Rx] Ascorbate Calcium [Vitamin C] 500 mg PO BID 04/08/21 [History] Cranberry 500 mg PO BID 04/08/21 [History] Florajen 20 Billion 1 cap PO DAILY 04/08/21 [History] Nitrofurantoin Monohyd/M-Cryst [Macrobid 100 mg Capsule] 100 mg PO DAILY 04/08/21 [History] Past Medical History HEENT History: Reports: Cataract, Glaucoma, Impaired Vision, Macular Degeneration, Other (See Below) Other HEENT History: dry eye syndrome Cardiovascular History: Reports: Arrhythmia, Blood Clots/VTE/DVT, CAD, High Cholesterol, Hypertension Respiratory History: Reports: Other (See Below) Other Respiratory History: Had pneumonia as an , serious. Gastrointestinal History: Reports: Chronic Constipation, Hiatal Hernia Genitourinary History: Reports: Chronic Renal Insuffiency, Renal Disease, Retention, Urinary, Urinary Incontinence Other Genitourinary History: stage 2 kidney disease [facility] History: Reports: Other (See Below) Other OB/BYN History: four C section Musculoskeletal History: Reports: Arthritis 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 Neurological History: Reports: TIA Endocrine/Metabolic History: Reports: Diabetes, Type II, Obesity/BMI 30+, Vitamin D Deficiency Hematologic History: Reports: Anticoagulation Therapy Oncologic (Cancer) History: Reports: Breast, Other (See Below) Other Oncologic History: bladder, - Infectious Disease History Infectious Disease History: Reports: Chicken Pox, Measles, Mumps, Novel Coronavirus - Past Surgical History HEENT Surgical History: Reports: Cataract Surgery, Oral Surgery Cardiovascular Surgical History: Reports: None GI Surgical History: Reports: Colonoscopy, Other (See Below) Other GI Surgeries/Procedures: Colonoscopy, resulted in perforated bowel. Female Surgical History: Reports: Mastectomy, Other (See Below) Other Female Surgeries/Procedures: bladder cancer Musculoskeletal Surgical History: Reports: Arthroscopic Knee, Other (See Below) Other Musculoskeletal Surgeries/Procedures:: left Oncologic Surgical History: Reports: Biopsy of Breast, Mastectomy Other Oncologic Surgeries/Procedures: Left mastectomy Social & Family History - Family History Family Medical History: No Pertinent Family History - Tobacco Use Tobacco Use Status *Q: Never Tobacco User - Caffeine Use Caffeine Use: Reports: None - Recreational Drug Use Recreational Drug Use: No - Living Situation & Occupation Living situation: Reports: Occupation: Retired H&P Review of Systems - Review of Systems: Review Of Systems: Unable To Obtain Reason Not Obtained: Patient is confused, lethargic, weak speech Exam - Exam Exam: See Below - Vital Signs Weight: 71.35 kg - Exam Quality Assessment: Supplemental Oxygen, DVT Prophylaxis General: Alert, Cooperative, Lethargic HEENT: EOMI Neck: Supple Lungs: Decreased Breath Sounds, Crackles Cardiovascular: Regular Rate, Regular Rhythm, Gallop/S4 GI/Abdominal Exam: Normal Bowel Sounds, Soft, Non-Tender Back Exam: Normal Inspection Extremities: Normal Inspection Peripheral Pulses: 2+: Radial (L), Radial (R), Dorsalis Pedis (L), Dorsalis Pedis (R) Skin: Warm, Dry Neuro Extensive - Mental Status: Disorientation to Place, Disorientation to Time, Slow Response to Commands Psychiatric: Alert - Patient Data Lab Results Last 24 hrs: Laboratory Results - last 24 hr 04/08/21 04/08/21 Range/Units 16:00 16:15 Troponin I 57.5 (4.0-60.3) pg/mL Urine Color Brown (YELLOW) Urine Appearance Turbid (CLEAR) Urine pH 6.5 (5.0-6.5) Ur Specific [place] 1.020 (1.010-1.025) Urine Protein 500 H (NEGATIVE) mg/dL Urine Glucose (UA) Normal (NORMAL) mg/dL Urine Ketones Negative (NEGATIVE) mg/dL Urine Occult Blood Large H (NEGATIVE) Urine Nitrite Negative (NEGATIVE) Urine Bilirubin Negative (NEGATIVE) Urine Urobilinogen Normal (NEGATIVE) mg/dL Ur Leukocyte Esterase Large H (NEGATIVE) Urine RBC Packed H (0-5) Urine WBC Packed H (0-5) - Problem List (1) Palliative care status SNOMED Code(s): 219696684 ICD Code: Z51.5 - ENCOUNTER FOR PALLIATIVE CARE Status: Chronic Current Visit: No (2) UTI (urinary tract infection) SNOMED Code(s): 92697856 ICD Code: N39.0 - URINARY TRACT INFECTION, SITE NOT SPECIFIED Status: Acute Current Visit: No Qualifiers: Urinary tract infection type: acute cystitis Hematuria presence: with hematuria Qualified Code(s): N30.01 - Acute cystitis with hematuria (3) Diabetes SNOMED Code(s): 82050849 ICD Code: E11.9 - TYPE 2 DIABETES MELLITUS WITHOUT COMPLICATIONS Status: Chronic Current Visit: No (4) History of bladder cancer SNOMED Code(s): 365271858, 538849999 ICD Code: Z85.51 - PERSONAL HISTORY OF MALIGNANT NEOPLASM OF BLADDER Status: Chronic Current Visit: No (5) History of breast cancer SNOMED Code(s): 501987141 ICD Code: Z85.3 - PERSONAL HISTORY OF MALIGNANT NEOPLASM OF BREAST Status: Chronic Current Visit: No (6) Hyperlipidemia SNOMED Code(s): 43805780 ICD Code: E78.5 - HYPERLIPIDEMIA, UNSPECIFIED Status: Chronic Current Visit: No (7) Heart failure with preserved ejection fraction SNOMED Code(s): 469880862 ICD Code: I50.30 - UNSPECIFIED DIASTOLIC (CONGESTIVE) HEART FAILURE Status: Chronic Current Visit: Yes (8) History of pulmonary embolism SNOMED Code(s): 888094211 ICD Code: Z86.711 - PERSONAL HISTORY OF PULMONARY EMBOLISM Status: Chronic Current Visit: Yes (9) 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 SNOMED Code(s): 805743985 ICD Code: Z79.01 - HALF-WAY (CURRENT) USE OF ANTICOAGULANTS Status: Chronic Current Visit: Yes (10) History of CVA (cerebrovascular accident) SNOMED Code(s): 770708895 ICD Code: Z86.73 - PRSNL HX OF TIA (TIA), AND CEREB INFRC W/O RESID DEFICITS Status: Chronic Current Visit: Yes (11) AMS (altered mental status) SNOMED Code(s): 900631529 ICD Code: R41.82 - ALTERED MENTAL STATUS, UNSPECIFIED Status: Acute Current Visit: Yes Problem List Initiated/Reviewed/Updated: Yes Orders Last 24hrs: Active Orders 24 hr Category Date Time Status Patient Status [ADT] Routine ADT 04/08/21 15:17 Active EKG Documentation Completion [RC] ASDIRECTED Care 04/08/21 15:20 Active Height and Weight [RC] DAILY Care 04/08/21 15:17 Active Intake and Output [RC] 06,14,22 Care 04/08/21 15:18 Active Oxygen Therapy [RC] PRN Care 04/08/21 15:17 Active Up With Assistance [RC] ASDIRECTED Care 04/08/21 15:17 Active Urinary Catheter Assessment [RC] .PRN Care 04/08/21 16:47 Active Urinary Catheter Assessment [RC] ASDIRECTED Care 04/08/21 16:47 Active Urinary Catheter Insertion [Insert Urinary Catheter] [ Care 04/08/21 17:00 Ordered OM.PC] Q24H VTE/DVT Education [RC] UPON Care 04/08/21 15:17 Active Vital Signs [RC] Q4H Care 04/08/21 15:17 Active Regular Diet [DIET] Diet 04/08/21 Dinner Active CBC WITH AUTO DIFF [HEME] AM Lab 04/09/21 05:11 Ordered COMPREHENSIVE METABOLIC PN,CMP [CHEM] AM Lab 04/09/21 05:11 Ordered CULTURE URINE [RM] Routine Lab 04/08/21 16:15 Received TROPONIN I [CHEM] Routine Lab 04/08/21 19:00 Ordered Acetaminophen [TylenoL] Med 04/08/21 21:00 Active 650 mg PO BID Acetaminophen [TylenoL] Med 04/08/21 15:21 Active 650 mg PO TID PRN Apixaban [Eliquis] Med 04/08/21 21:00 Active 5 mg PO BID Ascorbic Acid [Vitamin C] Med 04/08/21 21:00 Active 500 mg PO BID Docusate Sodium [Colace] Med 04/08/21 21:00 Active 100 mg PO BID Escitalopram [Lexapro] Med 04/09/21 09:00 Active 10 mg PO DAILY Lactobacillus Rhamnosus GG [Culturelle] Med 04/09/21 09:00 Active 1 cap PO DAILY Latanoprost [Xalatan 0.005% Ophth Soln] Med 04/08/21 21:00 Active 0 ml EYEBOTH BEDTIME Magnesium Hydroxide [Milk of Magnesia] Med 04/08/21 15:21 Active 30 ml PO DAILY PRN Melatonin Med 04/08/21 21:00 Active 3 mg PO BEDTIME Metoprolol Tartrate [Lopressor] Med 04/08/21 21:00 Active 12.5 mg PO BID Ondansetron [Zofran ODT] Med 04/08/21 15:17 Active 4 mg PO Q4H PRN PEG 400/Propylene Glycol [Systane Lubricant] Med 04/08/21 21:00 Active 0 ml EYEBOTH BID Sodium Chloride 0.45% 1,000 ml Med 04/08/21 15:30 Active IV ASDIRECTED Sodium Chloride 0.65% [Acadia Nasal [place]] Med 04/08/21 15:21 Active 0 ml NASBOTH TID PRN Sodium Chloride 0.9% [Saline Flush] Med 04/08/21 15:17 Active 10 ml FLUSH ASDIRECTED PRN polyethylene glycoL 3350 [MiraLAX] Med 04/08/21 15:21 Active 17 gm PO DAILY PRN Peripheral IV Insertion Adult [OM.PC] Routine Oth 04/08/21 15:17 Ordered Resuscitation Status Routine Resus Stat 04/08/21 15:17 Ordered EKG 12 Lead [EK] Routine Ther 04/08/21 15:17 Ordered Medication Orders Acetaminophen (Acetaminophen 325 Mg Tab) 650 mg PO BID REGINALDO Acetaminophen (Acetaminophen 325 Mg Tab) 650 mg PO TID PRN PRN Reason: Pain/Fever Apixaban (Apixaban 5 Mg Tab) 5 mg PO BID REGINALDO Ascorbic Acid (Ascorbic Acid 500 Mg Tab) 500 mg PO BID REGINALDO Docusate Sodium (Docusate Sodium 100 Mg Cap) 100 mg PO BID REGINALDO Escitalopram Oxalate (Escitalopram 10 Mg Tab) 10 mg PO DAILY REGINALDO Sodium Chloride (Sodium Chloride 0.45%) 1,000 mls @ 125 mls/hr IV ASDIRECTED REGINALDO Last Admin: 04/08/21 16:03 Dose: 125 mls/hr Documented by: BOSHCAT Lactobacillus Rhamnosus (Lactobacillus Rhamnosus Gg (Probiotic) Cap) 1 cap PO DAILY REGINALDO Latanoprost (Latanoprost 0.005% Ophth Soln 2.5 Ml Bottle) 0 ml EYEBOTH BEDTIME REGINALDO Magnesium Hydroxide (Magnesium Hydroxide 400 Mg/5 Ml Susp 30 Ml Cup) 30 ml PO DAILY PRN PRN Reason: Constipation Melatonin (Melatonin 3 Mg Tab) 3 mg PO BEDTIME REGINALDO Metoprolol Tartrate (Metoprolol Tartrate 25 Mg Tab) 12.5 mg PO BID REGINALDO Ondansetron HCl (Ondansetron 4 Mg Tab.Dis) 4 mg PO Q4H PRN PRN Reason: nausea, able to take PO Polyethylene Glycol (Polyethylene Glycol 3350 Powder 17 Gm Packet) 17 gm PO DAILY PRN PRN Reason: Constipation Propylene Glycol (Peg 400/Propylene Glycol Ophth Soln 15 Ml Bottle) 0 ml EYEBOTH BID REGINALDO Sodium Chloride (Sodium Chloride 0.9% 10 Ml Syringe) 10 ml FLUSH ASDIRECTED PRN PRN Reason: Keep Vein Open Last Admin: 04/08/21 16:03 Dose: 10 ml Documented by: AIYANA Sodium Chloride (Sodium Chloride 0.65% Nasal [place] 45 Ml Bottle) 0 ml NASBOTH TID PRN PRN Reason: epistaxis Assessment/Plan Comment:: 1. Admit patient inpatient status for treatment of altered mental status, dehydration, urinary tract infection, and other complications that may arise 2. UTI: Gentle hydration with half-normal saline secondary to likely dehydration with hypernatremia, ceftriaxone 1 g daily, monitor urine culture and sensitivities 3. Altered mental status: Trend troponins, electrolytes, treat comorbidities 4. Chronic conditions: Continue home medications as indicated 5. DVT prophylaxis: Continue home medication, Eliquis 6. GI prophylaxis: Proton pump inhibitor, regular diet 7. Disposition: Pending clinical improvement, likely 2 to 3 days with discharge back to halfway
[2021-04-08] MEDS ORDERED: cefTRIAXone 1 GM in Sodium Chloride 0.9% 50 ML IV SCH (18:30)
--- NOTE | 2021-04-08 18:43 | PCM.EKG ---
#1 Interpretation EKG Date: 04/08/21 Time: 15:44 EKG Interpretation Comments: Sinus tachycardia, rate 96, left axis deviation, ST-T segment deviation and V6, aVL, and lead I suggesting lateral ischemia
[2021-04-08] MEDS: Docusate Sodium 100 MG Cap PO SCH (20:17)
[2021-04-08] MEDS: Metoprolol Tartrate 25 MG Tab PO SCH (20:17)
[2021-04-08] MEDS: Apixaban 5 MG Tab PO SCH (20:17)
[2021-04-08] MEDS: PEG 400/Propylene Glycol Ophth Soln 15 ML Bottle EYEBOTH SCH (20:18)
[2021-04-08] MEDS: Melatonin 3 MG Tab PO SCH (20:18)
[2021-04-08] MEDS: Acetaminophen 325 MG Tab PO SCH (20:19)
[2021-04-08] MEDS: Latanoprost 0.005% Ophth Soln 2.5 ML Bottle EYEBOTH SCH (20:20)
[2021-04-08] MEDS: Ascorbic Acid 500 MG Tab PO SCH (20:20)
[2021-04-09] MEDS: Pantoprazole 40 MG Tab.CR PO SCH (06:13)
--- NOTE | 2021-04-09 08:44 | PCM.PN ---
- General Info Date of Service: 04/09/21 Admission Dx/Problem (Free Text): Admission Diagnosis/Problem Admission Diagnosis/Problem Hypernatremia Functional Status: Reports: New Symptoms - Review of Systems General: Reports: Weakness, Other (Increased confusion) HEENT: Reports: No Symptoms Pulmonary: Reports: No Symptoms Cardiovascular: Reports: No Symptoms Gastrointestinal: Reports: No Symptoms Genitourinary: Reports: No Symptoms Musculoskeletal: Reports: No Symptoms Skin: Reports: No Symptoms Neurological: Reports: Confusion, Weakness Psychiatric: Reports: Confusion - Patient Data Vitals - Most Recent: Last Vital Signs Temp 36.5 C 04/09/21 04:00 Pulse 89 04/09/21 04:00 Resp 18 04/09/21 04:00 BP 136/76 04/09/21 04:00 Pulse Ox 93 L 04/09/21 04:00 Weight - Most Recent: 73.057 kg I&O - Last 24 Hours: Intake & Output 04/08/21 04/09/21 04/09/21 22:59 06:59 14:59 Intake Total 1368 20 Balance 1368 20 Lab Results Last 24 Hours: Laboratory Results - last 24 hr 04/08/21 04/08/21 04/08/21 Range/Units 16:00 16:15 19:00 WBC (3.0-10.3) x10-3/uL RBC (3.60-5.20) x10(6)uL Hgb (11.4-15.5) g/dL Hct (34.2-48.2) % MCV (76.7-100.5) fL MCH (23.9-33.9) pg MCHC (31.9-34.8) g/dL RDW (12.3-16.5) % Plt Count (151-488) x10(3)uL MPV (7.1-12.4) fL Neut % (Auto) (30.8-76.2) % Lymph % (Auto) (18.4-52.1) % [place] % (Auto) (4.4-15.7) % Eos % (Auto) (0.6-8.1) % Baso % (Auto) (0.2-1.5) % Neut # (Auto) (1.5-6.3) x10-3/uL Lymph # (Auto) (1.0-4.4) x10-3/uL [place] # (Auto) (0.3-1.0) x10-3/uL Eos # (Auto) (0.0-0.8) x10-3/uL Baso # (Auto) (0.0-0.1) x10-3/uL Sodium (135-145) mmol/L Potassium (3.5-5.3) mmol/L Chloride (100-110) mmol/L Carbon Dioxide (21-32) mmol/L BUN (7-18) mg/dL Creatinine (0.55-1.02) mg/dL Est Cr Clr Drug Dosing mL/min Estimated GFR (MDRD) (>60) BUN/Creatinine Ratio (9-20) Glucose (80-116) mg/dL Calcium (8.6-10.2) mg/dL Total Bilirubin (0.1-1.3) mg/dL AST (5-25) IU/L ALT (12-36) U/L Alkaline Phosphatase (56-112) IU/L Troponin I 57.5 62.1 H* (4.0-60.3) pg/mL Total Protein (6.0-8.0) g/dL Albumin (2.9-4.5) g/dL Globulin g/dL Albumin/Globulin Ratio Urine Color Brown (YELLOW) Urine Appearance Turbid (CLEAR) Urine pH 6.5 (5.0-6.5) Ur Specific [place] 1.020 (1.010-1.025) Urine Protein 500 H (NEGATIVE) mg/dL Urine Glucose (UA) Normal (NORMAL) mg/dL Urine Ketones Negative (NEGATIVE) mg/dL Urine Occult Blood Large H (NEGATIVE) Urine Nitrite Negative (NEGATIVE) Urine Bilirubin Negative (NEGATIVE) Urine Urobilinogen Normal (NEGATIVE) mg/dL Ur Leukocyte Esterase Large H (NEGATIVE) Urine RBC Packed H (0-5) Urine WBC Packed H (0-5) 04/09/21 04/09/21 04/09/21 Range/Units 06:20 06:20 06:20 WBC 12.0 H (3.0-10.3) x10-3/uL RBC 4.94 (3.60-5.20) x10(6)uL Hgb 15.3 D (11.4-15.5) g/dL Hct 46.5 D (34.2-48.2) % MCV 94.1 (76.7-100.5) fL MCH 31.0 (23.9-33.9) pg MCHC 32.9 (31.9-34.8) g/dL RDW 14.7 (12.3-16.5) % Plt Count 235 (151-488) x10(3)uL MPV 8.1 (7.1-12.4) fL Neut % (Auto) 70.5 (30.8-76.2) % Lymph % (Auto) 18.1 L (18.4-52.1) % [place] % (Auto) 8.7 (4.4-15.7) % Eos % (Auto) 2.0 (0.6-8.1) % Baso % (Auto) 0.7 (0.2-1.5) % Neut # (Auto) 8.4 H (1.5-6.3) x10-3/uL Lymph # (Auto) 2.2 (1.0-4.4) x10-3/uL [place] # (Auto) 1.0 (0.3-1.0) x10-3/uL Eos # (Auto) 0.2 (0.0-0.8) x10-3/uL Baso # (Auto) 0.1 (0.0-0.1) x10-3/uL Sodium 149 H D (135-145) mmol/L Potassium 3.9 (3.5-5.3) mmol/L Chloride 112 H D (100-110) mmol/L Carbon Dioxide 27 (21-32) mmol/L BUN 44 H D (7-18) mg/dL Creatinine 0.9 (0.55-1.02) mg/dL Est Cr Clr Drug Dosing 30.44 mL/min Estimated GFR (MDRD) 59 L (>60) BUN/Creatinine Ratio 48.9 H (9-20) Glucose 145 H (80-116) mg/dL Calcium 8.7 (8.6-10.2) mg/dL Total Bilirubin 0.6 (0.1-1.3) mg/dL AST 19 D (5-25) IU/L ALT 19 D (12-36) U/L Alkaline Phosphatase 58 (56-112) IU/L Troponin I 42.9 (4.0-60.3) pg/mL Total Protein 7.0 (6.0-8.0) g/dL Albumin 2.9 (2.9-4.5) g/dL Globulin 4.1 g/dL Albumin/Globulin Ratio 0.7 Urine Color (YELLOW) Urine Appearance (CLEAR) Urine pH (5.0-6.5) Ur Specific [place] (1.010-1.025) Urine Protein (NEGATIVE) mg/dL Urine Glucose (UA) (NORMAL) mg/dL Urine Ketones (NEGATIVE) mg/dL Urine Occult Blood (NEGATIVE) Urine Nitrite (NEGATIVE) Urine Bilirubin (NEGATIVE) Urine Urobilinogen (NEGATIVE) mg/dL Ur Leukocyte Esterase (NEGATIVE) Urine RBC (0-5) Urine WBC (0-5) Med Orders - Current: Current Medications Acetaminophen (Acetaminophen 325 Mg Tab) 650 mg PO BID [facility] Last Admin: 04/08/21 20:19 Dose: 650 mg Documented by: Acetaminophen (Acetaminophen 325 Mg Tab) 650 mg PO TID PRN PRN Reason: Pain/Fever Apixaban (Apixaban 5 Mg Tab) 5 mg PO BID [facility] Last Admin: 04/08/21 20:17 Dose: 5 mg Documented by: Ascorbic Acid (Ascorbic Acid 500 Mg Tab) 500 mg PO BID [facility] Last Admin: 04/08/21 20:20 Dose: 500 mg Documented by: Ceftriaxone Sodium (Ceftriaxone 1 Gm Vial) 1 gm IVPUSH Q24H [facility] Docusate Sodium (Docusate Sodium 100 Mg Cap) 100 mg PO BID [facility] Last Admin: 04/08/21 20:17 Dose: 100 mg Documented by: Escitalopram Oxalate (Escitalopram 10 Mg Tab) 10 mg PO DAILY [facility] Lactobacillus Rhamnosus (Lactobacillus Rhamnosus Gg (Probiotic) Cap) 1 cap PO DAILY [facility] Latanoprost (Latanoprost 0.005% Ophth Soln 2.5 Ml Bottle) 0 ml EYEBOTH BEDTIME [facility] Last Admin: 04/08/21 20:20 Dose: 1 drop Documented by: Magnesium Hydroxide (Magnesium Hydroxide 400 Mg/5 Ml Susp 30 Ml Cup) 30 ml PO DAILY PRN PRN Reason: Constipation Melatonin (Melatonin 3 Mg Tab) 3 mg PO BEDTIME [facility] Last Admin: 04/08/21 20:18 Dose: 3 mg Documented by: Metoprolol Tartrate (Metoprolol Tartrate 25 Mg Tab) 12.5 mg PO BID [facility] Last Admin: 04/08/21 20:17 Dose: 12.5 mg Documented by: Ondansetron HCl (Ondansetron 4 Mg Tab.Dis) 4 mg PO Q4H PRN PRN Reason: nausea, able to take PO Pantoprazole Sodium (Pantoprazole 40 Mg Tab.Cr) 40 mg PO 0600 [facility] Last Admin: 04/09/21 06:13 Dose: 40 mg Documented by: Polyethylene Glycol (Polyethylene Glycol 3350 Powder 17 Gm Packet) 17 gm PO DAILY PRN PRN Reason: Constipation Propylene Glycol (Peg 400/Propylene Glycol Ophth Soln 15 Ml Bottle) 0 ml EYEBOTH BID [facility] Last Admin: 04/08/21 20:18 Dose: 1 drop Documented by: Sodium Chloride (Sodium Chloride 0.9% 10 Ml Syringe) 10 ml FLUSH ASDIRECTED PRN PRN Reason: Keep Vein Open Last Admin: 04/08/21 16:03 Dose: 10 ml Documented by: Sodium Chloride (Sodium Chloride 0.65% Nasal [place] 45 Ml Bottle) 0 ml NASBOTH TID PRN PRN Reason: epistaxis Discontinued Medications Enoxaparin Sodium (Enoxaparin 30 Mg/0.3 Ml Syringe) 30 mg SUBCUT Q24H [facility] Sodium Chloride (Sodium Chloride 0.45%) 1,000 mls @ 125 mls/hr IV ASDIRECTED [facility] Last Admin: 04/08/21 16:03 Dose: 125 mls/hr Documented by: Ceftriaxone Sodium 1 gm/ (Sodium Chloride) 50 mls @ 200 mls/hr IV Q24H [facility] Last Admin: 04/08/21 18:39 Dose: 200 mls/hr Documented by: Comments:: Patient was lying in bed awake and alert. Once again, initially, she seemed to answer questions appropriately but then kept repeating the answer "yes." I would ask her if she could tell me if she knew where she was this morning and she would just say "yes." I would ask her but she could tell me her birthdate and again she would just answer yes. 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 Patient was not able to move her right hand to touch my finger but she does have a history of right shoulder injury. Patient was able to wiggle her left toes but not her right toes. She did react to pain with firm squeeze on the right) Psy/Mental Status: Alert - Patient Data Lab Results Last 24 hrs: Laboratory Results - last 24 hr 04/08/21 04/08/21 04/08/21 Range/Units 16:00 16:15 19:00 WBC (3.0-10.3) x10-3/uL RBC (3.60-5.20) x10(6)uL Hgb (11.4-15.5) g/dL Hct (34.2-48.2) % MCV (76.7-100.5) fL MCH (23.9-33.9) pg MCHC (31.9-34.8) g/dL RDW (12.3-16.5) % Plt Count (151-488) x10(3)uL MPV (7.1-12.4) fL Neut % (Auto) (30.8-76.2) % Lymph % (Auto) (18.4-52.1) % [place] % (Auto) (4.4-15.7) % Eos % (Auto) (0.6-8.1) % Baso % (Auto) (0.2-1.5) % Neut # (Auto) (1.5-6.3) x10-3/uL Lymph # (Auto) (1.0-4.4) x10-3/uL [place] # (Auto) (0.3-1.0) x10-3/uL Eos # (Auto) (0.0-0.8) x10-3/uL Baso # (Auto) (0.0-0.1) x10-3/uL Sodium (135-145) mmol/L Potassium (3.5-5.3) mmol/L Chloride (100-110) mmol/L Carbon Dioxide (21-32) mmol/L BUN (7-18) mg/dL Creatinine (0.55-1.02) mg/dL Est Cr Clr Drug Dosing mL/min Estimated GFR (MDRD) (>60) BUN/Creatinine Ratio (9-20) Glucose (80-116) mg/dL Calcium (8.6-10.2) mg/dL Total Bilirubin (0.1-1.3) mg/dL AST (5-25) IU/L ALT (12-36) U/L Alkaline Phosphatase (56-112) IU/L Troponin I 57.5 62.1 H* (4.0-60.3) pg/mL Total Protein (6.0-8.0) g/dL Albumin (2.9-4.5) g/dL Globulin g/dL Albumin/Globulin Ratio Urine Color Brown (YELLOW) Urine Appearance Turbid (CLEAR) Urine pH 6.5 (5.0-6.5) Ur Specific [place] 1.020 (1.010-1.025) Urine Protein 500 H (NEGATIVE) mg/dL Urine Glucose (UA) Normal (NORMAL) mg/dL Urine Ketones Negative (NEGATIVE) mg/dL Urine Occult Blood Large H (NEGATIVE) Urine Nitrite Negative (NEGATIVE) Urine Bilirubin Negative (NEGATIVE) Urine Urobilinogen Normal (NEGATIVE) mg/dL Ur Leukocyte Esterase Large H (NEGATIVE) Urine RBC Packed H (0-5) Urine WBC Packed H (0-5) 04/09/21 04/09/21 04/09/21 Range/Units 06:20 06:20 06:20 WBC 12.0 H (3.0-10.3) x10-3/uL RBC 4.94 (3.60-5.20) x10(6)uL Hgb 15.3 D (11.4-15.5) g/dL Hct 46.5 D (34.2-48.2) % MCV 94.1 (76.7-100.5) fL MCH 31.0 (23.9-33.9) pg MCHC 32.9 (31.9-34.8) g/dL RDW 14.7 (12.3-16.5) % Plt Count 235 (151-488) x10(3)uL MPV 8.1 (7.1-12.4) fL Neut % (Auto) 70.5 (30.8-76.2) % Lymph % (Auto) 18.1 L (18.4-52.1) % [place] % (Auto) 8.7 (4.4-15.7) % Eos % (Auto) 2.0 (0.6-8.1) % Baso % (Auto) 0.7 (0.2-1.5) % Neut # (Auto) 8.4 H (1.5-6.3) x10-3/uL Lymph # (Auto) 2.2 (1.0-4.4) x10-3/uL [place] # (Auto) 1.0 (0.3-1.0) x10-3/uL Eos # (Auto) 0.2 (0.0-0.8) x10-3/uL Baso # (Auto) 0.1 (0.0-0.1) x10-3/uL Sodium 149 H D (135-145) mmol/L Potassium 3.9 (3.5-5.3) mmol/L Chloride 112 H D (100-110) mmol/L Carbon Dioxide 27 (21-32) mmol/L BUN 44 H D (7-18) mg/dL Creatinine 0.9 (0.55-1.02) mg/dL Est Cr Clr Drug Dosing 30.44 mL/min Estimated GFR (MDRD) 59 L (>60) BUN/Creatinine Ratio 48.9 H (9-20) Glucose 145 H (80-116) mg/dL Calcium 8.7 (8.6-10.2) mg/dL Total Bilirubin 0.6 (0.1-1.3) mg/dL AST 19 D (5-25) IU/L ALT 19 D (12-36) U/L Alkaline Phosphatase 58 (56-112) IU/L Troponin I 42.9 (4.0-60.3) pg/mL Total Protein 7.0 (6.0-8.0) g/dL Albumin 2.9 (2.9-4.5) g/dL Globulin 4.1 g/dL Albumin/Globulin Ratio 0.7 Urine Color (YELLOW) Urine Appearance (CLEAR) Urine pH (5.0-6.5) Ur Specific [place] (1.010-1.025) Urine Protein (NEGATIVE) mg/dL Urine Glucose (UA) (NORMAL) mg/dL Urine Ketones (NEGATIVE) mg/dL Urine Occult Blood (NEGATIVE) Urine Nitrite (NEGATIVE) Urine Bilirubin (NEGATIVE) Urine Urobilinogen (NEGATIVE) mg/dL Ur Leukocyte Esterase (NEGATIVE) Urine RBC (0-5) Urine WBC (0-5) Result Diagrams: 04/09/21 06:20 04/09/21 06:20 Sepsis Event Note - Evaluation Sepsis Screening Result: No Definite Risk - Focused Exam Vital Signs: Vital Signs Temp Pulse Resp BP Pulse Ox 04/09/21 04:00 36.5 C 89 18 136/76 93 L 04/09/21 00:00 36.4 C 77 18 126/88 92 L - Problem List & Annotations (1) Palliative care status SNOMED Code(s): 359765125 Code(s): Z51.5 - ENCOUNTER FOR PALLIATIVE CARE Status: Chronic Current Visit: No (2) UTI (urinary tract infection) SNOMED Code(s): 35844843 Code(s): N39.0 - URINARY TRACT INFECTION, SITE NOT SPECIFIED Status: Acute Current Visit: No Qualifiers: Urinary tract infection type: acute cystitis Hematuria presence: with hematuria Qualified Code(s): N30.01 - Acute cystitis with hematuria (3) Diabetes SNOMED Code(s): 58094948 Code(s): E11.9 - TYPE 2 DIABETES MELLITUS WITHOUT COMPLICATIONS Status: Chronic Current Visit: No (4) History of bladder cancer SNOMED Code(s): 287599809, 121825288 Code(s): Z85.51 - PERSONAL HISTORY OF MALIGNANT NEOPLASM OF BLADDER Status: Chronic Current Visit: No (5) History of breast cancer SNOMED Code(s): 431083937 Code(s): Z85.3 - PERSONAL HISTORY OF MALIGNANT NEOPLASM OF BREAST Status: Chronic Current Visit: No (6) Hyperlipidemia SNOMED Code(s): 73244539 Code(s): E78.5 - HYPERLIPIDEMIA, UNSPECIFIED Status: Chronic Current Visit: No (7) Heart failure with preserved ejection fraction SNOMED Code(s): 567802974 Code(s): I50.30 - UNSPECIFIED DIASTOLIC (CONGESTIVE) HEART FAILURE Status: Chronic Current Visit: Yes (8) History of pulmonary embolism SNOMED Code(s): 897613387 Code(s): Z86.711 - PERSONAL HISTORY OF PULMONARY EMBOLISM Status: Chronic Current Visit: Yes (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 SNOMED Code(s): 650496363 Code(s): Z79.01 - COAT CHECK ATTENDANT (CURRENT) USE OF ANTICOAGULANTS Status: Chronic Current Visit: Yes (10) History of CVA (cerebrovascular accident) SNOMED Code(s): 007483156 Code(s): Z86.73 - PRSNL HX OF TIA (TIA), AND CEREB INFRC W/O RESID DEFICITS Status: Chronic Current Visit: Yes (11) AMS (altered mental status) SNOMED Code(s): 547358347 Code(s): R41.82 - ALTERED MENTAL STATUS, UNSPECIFIED Status: Acute Current Visit: Yes - Problem List Review Problem List Initiated/Reviewed/Updated: Yes - My Orders Last 24 Hours: My Active Orders 04/08/21 16:15 CULTURE URINE [RM] Routine 04/08/21 16:47 Urinary Catheter Assessment [RC] .PRN 04/08/21 17:00 Urinary Catheter Insertion [Insert Urinary Catheter] [OM.PC] Q24H 04/09/21 06:00 Pantoprazole [ProTONIX] 40 mg PO 0600 04/09/21 07:48 Consult to Speech Language Pathology [COURT ORDERLY Evaluation and Treatment] [CONS] Routine 04/09/21 Lunch Pureed Diet [DIET] 04/09/21 18:30 cefTRIAXone [Rocephin] 1 gm IVPUSH Q24H - Plan Plan:: 1. Admit patient inpatient status for treatment of altered mental status, dehydration, urinary tract infection, and other complications that may arise 2. UTI: Gentle hydration with half-normal saline secondary to likely dehydration with hypernatremia, ceftriaxone 1 g daily, monitor urine culture and sensitivities 3. Altered mental status: Patient has a history of bladder cancer and CVA. She seems more confused today than yesterday and will not wiggle her right toes. 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 It is not clear if these are new neurological symptoms or if these are secondary to chronic problems such as right shoulder injury and bruising of the right lower leg. We will start neuro checks every 4 hours. 4. 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 It is a concern given the new neurologic symptoms. 5. DVT prophylaxis: Continue home medication, Eliquis 6. GI prophylaxis: Proton pump inhibitor, regular diet 7. Disposition: Pending clinical improvement. I spoke with her son, Jorge, on the phone this morning. We discussed the pros and cons of head CT to look for indications of an acute stroke. He decided not to pursue imaging because we will likely not do any treatment at this time. He will be here later today to have further discussions.
[2021-04-09] MEDS: Lactobacillus Rhamnosus GG (Probiotic) Cap PO SCH (08:59)
[2021-04-09] MEDS: Escitalopram 10 MG Tab PO SCH (08:59)
[2021-04-09] MEDS: Ascorbic Acid 500 MG Tab PO SCH ×2 (08:59→20:08)
[2021-04-09] MEDS: Docusate Sodium 100 MG Cap PO SCH ×2 (08:59→20:03)
[2021-04-09] MEDS: Metoprolol Tartrate 25 MG Tab PO SCH ×2 (09:00→20:04)
[2021-04-09] MEDS ORDERED: Sodium Chloride 0.9% 1,000 ML IV SCH (09:00)
[2021-04-09] MEDS: Apixaban 5 MG Tab PO SCH ×2 (09:00→20:03)
[2021-04-09] MEDS: PEG 400/Propylene Glycol Ophth Soln 15 ML Bottle EYEBOTH SCH ×2 (09:02→20:06)
[2021-04-09] MEDS: Acetaminophen 325 MG Tab PO SCH ×2 (09:02→20:06)
[2021-04-09] MEDS ORDERED: cefTRIAXone 1 GM Vial IVPUSH SCH (18:30)
[2021-04-09] MEDS: Sodium Chloride 0.9% 10 ML Syringe FLUSH PRN (18:46)
[2021-04-09] MEDS: Melatonin 3 MG Tab PO SCH (20:04)
[2021-04-09] MEDS: Latanoprost 0.005% Ophth Soln 2.5 ML Bottle EYEBOTH SCH (20:09)
[2021-04-10] MEDS: Pantoprazole 40 MG Tab.CR PO SCH (05:22)
--- NOTE | 2021-04-10 08:22 | PCM.PN ---
- General Info Date of Service: 04/10/21 Admission Dx/Problem (Free Text): Admission Diagnosis/Problem Admission Diagnosis/Problem Hypernatremia - Review of Systems General: Reports: Weakness, Malaise, Night Sweats HEENT: Reports: Headaches Pulmonary: Reports: No Symptoms Cardiovascular: Reports: No Symptoms Gastrointestinal: Reports: No Symptoms Genitourinary: Reports: No Symptoms Musculoskeletal: Reports: Arm Pain, Leg Pain Skin: Reports: No Symptoms Neurological: Reports: Confusion, Paresthesia, Difficulty Walking, Weakness Psychiatric: Reports: Confusion - Patient Data Vitals - Most Recent: Last Vital Signs Temp 37.2 C 04/10/21 04:00 Pulse 89 04/10/21 04:00 Resp 20 04/10/21 04:00 BP 121/67 04/10/21 04:00 Pulse Ox 93 L 04/10/21 04:00 Weight - Most Recent: 71.804 kg Lab Results Last 24 Hours: Laboratory Results - last 24 hr 04/10/21 04/10/21 Range/Units 06:22 06:22 WBC 9.8 (3.0-10.3) x10-3/uL RBC 4.88 (3.60-5.20) x10(6)uL Hgb 15.3 (11.4-15.5) g/dL Hct 46.2 (34.2-48.2) % MCV 94.7 (76.7-100.5) fL MCH 31.4 (23.9-33.9) pg MCHC 33.2 (31.9-34.8) g/dL RDW 14.9 (12.3-16.5) % Plt Count 236 (151-488) x10(3)uL MPV 8.1 (7.1-12.4) fL Neut % (Auto) 65.6 (30.8-76.2) % Lymph % (Auto) 22.0 (18.4-52.1) % [place] % (Auto) 8.9 (4.4-15.7) % Eos % (Auto) 2.5 (0.6-8.1) % Baso % (Auto) 1.0 (0.2-1.5) % Neut # (Auto) 6.4 H (1.5-6.3) x10-3/uL Lymph # (Auto) 2.2 (1.0-4.4) x10-3/uL [place] # (Auto) 0.9 (0.3-1.0) x10-3/uL Eos # (Auto) 0.2 (0.0-0.8) x10-3/uL Baso # (Auto) 0.1 (0.0-0.1) x10-3/uL Sodium 149 H (135-145) mmol/L Potassium 3.8 (3.5-5.3) mmol/L Chloride 113 H (100-110) mmol/L Carbon Dioxide 25 (21-32) mmol/L BUN 37 H (7-18) mg/dL Creatinine 1.1 H (0.55-1.02) mg/dL Est Cr Clr Drug Dosing 24.90 mL/min Estimated GFR (MDRD) 47 L (>60) BUN/Creatinine Ratio 33.6 H (9-20) Glucose 186 H (80-116) mg/dL Calcium 8.7 (8.6-10.2) mg/dL Isaac Results Last 24 Hours: Microbiology 04/08/21 16:15 Urine Culture - Preliminary Urine, Catheterized Gram Positive Cocci Med Orders - Current: Current Medications Acetaminophen (Acetaminophen 325 Mg Tab) 650 mg PO BID [facility] Last Admin: 04/09/21 20:06 Dose: 650 mg Documented by: Acetaminophen (Acetaminophen 325 Mg Tab) 650 mg PO TID PRN PRN Reason: Pain/Fever Last Admin: 04/09/21 14:03 Dose: 650 mg Documented by: Apixaban (Apixaban 5 Mg Tab) 5 mg PO BID [facility] Last Admin: 04/09/21 20:03 Dose: 5 mg Documented by: Ascorbic Acid (Ascorbic Acid 500 Mg Tab) 500 mg PO BID [facility] Last Admin: 04/09/21 20:08 Dose: 500 mg Documented by: Ceftriaxone Sodium (Ceftriaxone 1 Gm Vial) 1 gm IVPUSH Q24H [facility] Last Admin: 04/09/21 18:48 Dose: 1 gm Documented by: Docusate Sodium (Docusate Sodium 100 Mg Cap) 100 mg PO BID [facility] Last Admin: 04/09/21 20:03 Dose: 100 mg Documented by: Escitalopram Oxalate (Escitalopram 10 Mg Tab) 10 mg PO DAILY [facility] Last Admin: 04/09/21 08:59 Dose: 10 mg Documented by: Sodium Chloride (Normal Saline) 1,000 mls @ 75 mls/hr IV ASDIRECTED [facility] Lactobacillus Rhamnosus (Lactobacillus Rhamnosus Gg (Probiotic) Cap) 1 cap PO DAILY [facility] Last Admin: 04/09/21 08:59 Dose: 1 cap Documented by: Latanoprost (Latanoprost 0.005% Ophth Soln 2.5 Ml Bottle) 0 ml EYEBOTH BEDTIME [facility] Last Admin: 04/09/21 20:09 Dose: 1 drop Documented by: Magnesium Hydroxide (Magnesium Hydroxide 400 Mg/5 Ml Susp 30 Ml Cup) 30 ml PO DAILY PRN PRN Reason: Constipation Melatonin (Melatonin 3 Mg Tab) 3 mg PO BEDTIME [facility] Last Admin: 04/09/21 20:04 Dose: 3 mg Documented by: Metoprolol Tartrate (Metoprolol Tartrate 25 Mg Tab) 12.5 mg PO BID [facility] Last Admin: 04/09/21 20:04 Dose: 12.5 mg Documented by: Ondansetron HCl (Ondansetron 4 Mg Tab.Dis) 4 mg PO Q4H PRN PRN Reason: nausea, able to take PO Pantoprazole Sodium (Pantoprazole 40 Mg Tab.Cr) 40 mg PO 0600 [facility] Last Admin: 04/10/21 05:22 Dose: 40 mg Documented by: Polyethylene Glycol (Polyethylene Glycol 3350 Powder 17 Gm Packet) 17 gm PO DAILY PRN PRN Reason: Constipation Propylene Glycol (Peg 400/Propylene Glycol Ophth Soln 15 Ml Bottle) 0 ml EYEBOTH BID [facility] Last Admin: 04/09/21 20:06 Dose: 1 drop Documented by: Sodium Chloride (Sodium Chloride 0.9% 10 Ml Syringe) 10 ml FLUSH ASDIRECTED PRN PRN Reason: Keep Vein Open Last Admin: 04/09/21 18:46 Dose: 10 ml Documented by: Sodium Chloride (Sodium Chloride 0.65% Nasal [place] 45 Ml Bottle) 0 ml NASBOTH TID PRN PRN Reason: epistaxis Discontinued Medications Enoxaparin Sodium (Enoxaparin 30 Mg/0.3 Ml Syringe) 30 mg SUBCUT Q24H [facility] Sodium Chloride (Sodium Chloride 0.45%) 1,000 mls @ 125 mls/hr IV ASDIRECTED [facility] Last Admin: 04/08/21 16:03 Dose: 125 mls/hr Documented by: Ceftriaxone Sodium 1 gm/ (Sodium Chloride) 50 mls @ 200 mls/hr IV Q24H [facility] Last Admin: 04/08/21 18:39 Dose: 200 mls/hr Documented by: Comments:: Patient was lying in bed, right lateral, awake, alert, oriented to person only. She was able to tell me her first name but was not able to tell me her birthdate. She did complain of generalized head pain and when I tried to move her to examine her she complained of arm pain and leg pain. - Exam Quality Assessment: Supplemental Oxygen, DVT Prophylaxis Urinary Catheter Total Time: 0Days 0Hours General: Alert, Cooperative, Lethargic Lungs: Crackles Cardiovascular: Regular Rate, Regular Rhythm GI/Abdominal Exam: Normal Bowel Sounds, Non-Tender Back Exam: Normal Inspection Extremities: Pedal Edema Peripheral Pulses: 1+: Dorsalis Pedis (L), Dorsalis Pedis (R), 2+: Radial (L), Radial (R) Skin: Moist Neurological: No New Focal Deficit, Other (No new focal deficit but patient still will not wiggle her right toes, she wiggles her left toes when I asked her to wiggle her right toes, she states she does feel pain/pressure when I squeeze her right foot) Psy/Mental Status: Alert - Patient Data Lab Results Last 24 hrs: Laboratory Results - last 24 hr 04/10/21 04/10/21 Range/Units 06:22 06:22 WBC 9.8 (3.0-10.3) x10-3/uL RBC 4.88 (3.60-5.20) x10(6)uL Hgb 15.3 (11.4-15.5) g/dL Hct 46.2 (34.2-48.2) % MCV 94.7 (76.7-100.5) fL MCH 31.4 (23.9-33.9) pg MCHC 33.2 (31.9-34.8) g/dL RDW 14.9 (12.3-16.5) % Plt Count 236 (151-488) x10(3)uL MPV 8.1 (7.1-12.4) fL Neut % (Auto) 65.6 (30.8-76.2) % Lymph % (Auto) 22.0 (18.4-52.1) % Steele % (Auto) 8.9 (4.4-15.7) % Eos % (Auto) 2.5 (0.6-8.1) % Baso % (Auto) 1.0 (0.2-1.5) % Neut # (Auto) 6.4 H (1.5-6.3) x10-3/uL Lymph # (Auto) 2.2 (1.0-4.4) x10-3/uL [place] # (Auto) 0.9 (0.3-1.0) x10-3/uL Eos # (Auto) 0.2 (0.0-0.8) x10-3/uL Baso # (Auto) 0.1 (0.0-0.1) x10-3/uL Sodium 149 H (135-145) mmol/L Potassium 3.8 (3.5-5.3) mmol/L Chloride 113 H (100-110) mmol/L Carbon Dioxide 25 (21-32) mmol/L BUN 37 H (7-18) mg/dL Creatinine 1.1 H (0.55-1.02) mg/dL Est Cr Clr Drug Dosing 24.90 mL/min Estimated GFR (MDRD) 47 L (>60) BUN/Creatinine Ratio 33.6 H (9-20) Glucose 186 H (80-116) mg/dL Calcium 8.7 (8.6-10.2) mg/dL Result Diagrams: 04/10/21 06:22 04/10/21 06:22 Isaac Results Last 24 hrs: Microbiology 04/08/21 16:15 Urine Culture - Preliminary Urine, Catheterized Gram Positive Cocci Sepsis Event Note - Evaluation Sepsis Screening Result: No Definite Risk - Focused Exam Vital Signs: Vital Signs Temp Pulse Resp BP Pulse Ox 04/10/21 04:00 37.2 C 89 20 121/67 93 L 04/10/21 00:00 20 04/09/21 21:00 37.2 C 98 20 137/68 93 L - Problem List & Annotations (1) Palliative care status SNOMED Code(s): 018832786 Code(s): Z51.5 - ENCOUNTER FOR PALLIATIVE CARE Status: Chronic Current Visit: No (2) UTI (urinary tract infection) SNOMED Code(s): 76823501 Code(s): N39.0 - URINARY TRACT INFECTION, SITE NOT SPECIFIED Status: Acute Current Visit: No Qualifiers: Urinary tract infection type: acute cystitis Hematuria presence: with hematuria Qualified Code(s): N30.01 - Acute cystitis with hematuria (3) Diabetes SNOMED Code(s): 62594332 Code(s): E11.9 - TYPE 2 DIABETES MELLITUS WITHOUT COMPLICATIONS Status: Chronic Current Visit: No (4) History of bladder cancer SNOMED Code(s): 829072021, 075634664 Code(s): Z85.51 - PERSONAL HISTORY OF MALIGNANT NEOPLASM OF BLADDER Status: Chronic Current Visit: No (5) History of breast cancer SNOMED Code(s): 096889256 Code(s): Z85.3 - PERSONAL HISTORY OF MALIGNANT NEOPLASM OF BREAST Status: Chronic Current Visit: No (6) Hyperlipidemia SNOMED Code(s): 00161883 Code(s): E78.5 - HYPERLIPIDEMIA, UNSPECIFIED Status: Chronic Current Visit: No (7) Heart failure with preserved ejection fraction SNOMED Code(s): 574799124 Code(s): I50.30 - UNSPECIFIED DIASTOLIC (CONGESTIVE) HEART FAILURE Status: Chronic Current Visit: Yes (8) History of pulmonary embolism SNOMED Code(s): 758539768 Code(s): Z86.711 - PERSONAL HISTORY OF PULMONARY EMBOLISM Status: Chronic Current Visit: Yes (9) Current use of retirement anticoagulation SNOMED Code(s): 076118524 Code(s): Z79.01 - SENIOR LIVING (CURRENT) USE OF ANTICOAGULANTS Status: Chronic Current Visit: Yes (10) History of CVA (cerebrovascular accident) SNOMED Code(s): 686832247 Code(s): Z86.73 - PRSNL HX OF TIA (TIA), AND CEREB INFRC W/O RESID DEFICITS Status: Chronic Current Visit: Yes (11) AMS (altered mental status) SNOMED Code(s): 112063461 Code(s): R41.82 - ALTERED MENTAL STATUS, UNSPECIFIED Status: Acute Current Visit: Yes - Problem List Review Problem List Initiated/Reviewed/Updated: Yes - My Orders Last 24 Hours: My Active Orders 04/09/21 07:48 Consult to Speech Language Pathology [OPTICAL LENS MANUFACTURING TECH Evaluation and Treatment] [CONS] Routine 04/09/21 09:00 Sodium Chloride 0.9% [Normal Saline] 1,000 ml IV ASDIRECTED 04/09/21 10:00 Neuro Check [RC] Q4H 04/09/21 Lunch Pureed Diet [DIET] 04/09/21 18:30 cefTRIAXone [Rocephin] 1 gm IVPUSH Q24H - Plan Plan:: 1. Admit patient inpatient status for treatment of altered mental status, dehydration, urinary tract infection, and other complications that may arise 2. UTI: ceftriaxone 1 g daily, monitor urine culture and sensitivities. 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 3. Altered mental status: Patient has a history of bladder cancer and CVA. Mental status seems to be unchanged from yesterday 4. 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 5. DVT prophylaxis: Continue home medication, Eliquis 6. GI prophylaxis: Proton pump inhibitor, regular diet 7. Disposition: Pending clinical improvement. I spoke with her son, Jorge, on the phone yesterday, discussed the pros and cons of head CT to look for indications of an acute stroke. He decided not to pursue imaging because we will likely not do any treatment at this time. Discussions will focus on treatment goals including possible hospice. Patient will be transitioned to oral antibiotics after today's dose of ceftriaxone and pending culture and sensitivities.
[2021-04-10] MEDS: PEG 400/Propylene Glycol Ophth Soln 15 ML Bottle EYEBOTH SCH (09:41)
[2021-04-10] MEDS: Lactobacillus Rhamnosus GG (Probiotic) Cap PO SCH (09:42)
[2021-04-10] MEDS: Docusate Sodium 100 MG Cap PO SCH (09:42)
[2021-04-10] MEDS: Apixaban 5 MG Tab PO SCH (09:42)
[2021-04-10] MEDS: Escitalopram 10 MG Tab PO SCH (09:43)
[2021-04-10] MEDS: Metoprolol Tartrate 25 MG Tab PO SCH (09:43)
[2021-04-10] MEDS: Acetaminophen 325 MG Tab PO SCH (09:45)
[2021-04-10] MEDS: Ascorbic Acid 500 MG Tab PO SCH (09:45)
--- NOTE | 2021-04-10 09:54 | PCM.DCSUM1 ---
Discharge Summary - Hospital Course Free Text/Narrative:: See initial HPI for patient history for this admission. Patient was treated with ceftriaxone IV and transition to Augmentin oral medications on day of discharge. Urine culture grew Escherichia coli and sensitivities are not yet available. However, patient's status and function improved significantly and she was discharged back to her [facility] facility today. She will be given an additional 3 days of Augmentin, 875/125. She is encouraged to follow- up with her primary care physician. HPI Initial Comments: 89-year-old lady direct admitted to the hospital from her retirement due to lethargy. When I interviewed the patient she seemed to answer some questions appropriately but other questions she just repeated her same answers. She is likely oriented to person only. Review of labs performed outside the hospital today shows elevated white blood cell count at 13.7, elevated hemoglobin hematocrit likely secondary to dehydration, sodium 151 also likely secondary to dehydration, creatinine was normal and GFR is mildly reduced from previous, 03/25/2021 but still greater than 60. Urinalysis was obtained when the patient was brought to the hospital and showed likely urinary tract infection, culture has been started. Patient will be started on ceftriaxone 1 g daily. Review of chest x-ray shows no definite acute process. However, radiology stated that it is difficult to exclude patchy pneumonia in the left lower lobe. Heart size was normal. ASHD was seen on chest x-ray. Diagnosis: Stroke: No - Discharge Data Discharge Date: 04/10/21 Discharge Disposition: DC/Tfer to SNF 03 Condition: Fair - Referral to Home Health Primary Care Physician: Jose Miguel Merino MD - Discharge Diagnosis/Problem(s) (1) Palliative care status SNOMED Code(s): 579613141 ICD Code: Z51.5 - ENCOUNTER FOR PALLIATIVE CARE Status: Chronic (2) UTI (urinary tract infection) SNOMED Code(s): 28713888 ICD Code: N39.0 - URINARY TRACT INFECTION, SITE NOT SPECIFIED Status: Acute Qualifiers: Urinary tract infection type: acute cystitis Hematuria presence: with hematuria Qualified Code(s): N30.01 - Acute cystitis with hematuria (3) Diabetes SNOMED Code(s): 46218942 ICD Code: E11.9 - TYPE 2 DIABETES MELLITUS WITHOUT COMPLICATIONS Status: Chronic (4) History of bladder cancer SNOMED Code(s): 804791128, 018157495 ICD Code: Z85.51 - PERSONAL HISTORY OF MALIGNANT NEOPLASM OF BLADDER Status: Chronic (5) History of breast cancer SNOMED Code(s): 005420330 ICD Code: Z85.3 - PERSONAL HISTORY OF MALIGNANT NEOPLASM OF BREAST Status: Chronic (6) Hyperlipidemia SNOMED Code(s): 56816670 ICD Code: E78.5 - HYPERLIPIDEMIA, UNSPECIFIED Status: Chronic (7) Heart failure with preserved ejection fraction SNOMED Code(s): 975311974 ICD Code: I50.30 - UNSPECIFIED DIASTOLIC (CONGESTIVE) HEART FAILURE Status: Chronic (8) History of pulmonary embolism SNOMED Code(s): 837701186 ICD Code: Z86.711 - PERSONAL HISTORY OF PULMONARY EMBOLISM Status: Chronic (9) 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 SNOMED Code(s): 827984899 ICD Code: Z79.01 - SECURITY ENGINEER (CURRENT) USE OF ANTICOAGULANTS Status: Chronic (10) History of CVA (cerebrovascular accident) SNOMED Code(s): 096187651 ICD Code: Z86.73 - PRSNL HX OF TIA (TIA), AND CEREB INFRC W/O RESID DEFICITS Status: Chronic (11) AMS (altered mental status) SNOMED Code(s): 143079161 ICD Code: R41.82 - ALTERED MENTAL STATUS, UNSPECIFIED Status: Acute - Patient Summary/Data Consults: Consultations 04/09/21 07:48 Consult to Speech Language Pathology [CORPORATE REPRESENTATIVE Evaluation and Treatment] [CONS] Routine Please Evaluate and Treat CORPORATE REPRESENTATIVE Reason for Consult: Swallow This query below is only for informational purposes and is not editable. Admission Diagnosis/Problem: Hypernatremia - Discharge Plan *PRESCRIPTION DRUG MONITORING PROGRAM REVIEWED*: Not Applicable *COPY OF PRESCRIPTION DRUG MONITORING REPORT IN PATIENT DAVION: Not Applicable Prescriptions/Med Rec: Amoxicillin/Potassium Clav [Augmentin 875-125 Tablet] 1 each PO BID #6 tablet Home Medications: Home Meds Docusate Sodium [Colace] 100 mg PO BID 12/16/15 [History] Latanoprost [Xalatan 0.005% Ophth Soln] 1 drop EYEBOTH BEDTIME 12/16/15 [History] Propylene Glycol/Peg 400 [Systane 0.3-0.4% Eye Drops] 1 drop EYEBOTH BID 01/05/17 [History] Acetaminophen [Tylenol] 650 mg PO BID 06/04/20 [History] Escitalopram Oxalate [Lexapro] 10 mg PO DAILY 06/04/20 [History] Magnesium Hydroxide [Milk of Magnesia] 30 ml PO DAILY PRN 06/04/20 [History] Melatonin 3 mg PO BEDTIME 06/04/20 [History] Metoprolol Tartrate 12.5 mg PO BID 06/04/20 [History] polyethylene glycoL 3350 [MiraLAX] 17 gm PO DAILY PRN 06/04/20 [History] Apixaban [Eliquis] 5 mg PO BID 30 Days #60 tablet 06/06/20 [Rx] Ascorbate Calcium [Vitamin C] 500 mg PO BID 04/08/21 [History] Cranberry 500 mg PO BID 04/08/21 [History] Florajen 20 Billion 1 cap PO DAILY 04/08/21 [History] Nitrofurantoin Monohyd/M-Cryst [Macrobid 100 mg Capsule] 100 mg PO DAILY 04/08/21 [History] Amoxicillin/Potassium Clav [Augmentin 875-125 Tablet] 1 each PO BID #6 tablet 04/10/21 [Rx] Patient Handouts: Urinary Tract Infection, Adult, Fall Prevention in Hospitals, Adult, Venous Thromboembolism Prevention - Discharge Summary/Plan Comment DC Time >30 min.: No Total # of Minutes for Discharge Time: 25 Discharge Summary/Plan Comment: Discharge/transfer to [facility] facility. Augmentin 875/125 twice daily for 3 more days. Patient encouraged to follow-up with her primary care physician and ensure resolution of urinary tract infection. Continue home medications as indicated. - General Info Date of Service: 04/10/21 Admission Dx/Problem (Free Text: Admission Diagnosis/Problem Admission Diagnosis/Problem Hypernatremia Subjective Update: Patient stated that she feels well today and has no acute complaints Functional Status: Reports: Pain Controlled - Review of Systems General: Reports: Weakness, Malaise HEENT: Reports: No Symptoms Pulmonary: Reports: No Symptoms Cardiovascular: Reports: No Symptoms Gastrointestinal: Reports: No Symptoms Genitourinary: Reports: No Symptoms Musculoskeletal: Reports: No Symptoms Skin: Reports: No Symptoms Neurological: Reports: Pre-Existing Deficit, Trouble Speaking, Difficulty Walking, Weakness Psychiatric: Reports: Confusion - Patient Data Vitals - Most Recent: Last Vital Signs Temp 37.2 C 04/10/21 04:00 Pulse 80 04/10/21 09:43 Resp 20 04/10/21 04:00 BP 144/86 H 04/10/21 09:43 Pulse Ox 93 L 04/10/21 04:00 Weight - Most Recent: 71.804 kg Lab Results - Last 24 hrs: Laboratory Results - last 24 hr 04/10/21 04/10/21 Range/Units 06:22 06:22 WBC 9.8 (3.0-10.3) x10-3/uL RBC 4.88 (3.60-5.20) x10(6)uL Hgb 15.3 (11.4-15.5) g/dL Hct 46.2 (34.2-48.2) % MCV 94.7 (76.7-100.5) fL MCH 31.4 (23.9-33.9) pg MCHC 33.2 (31.9-34.8) g/dL RDW 14.9 (12.3-16.5) % Plt Count 236 (151-488) x10(3)uL MPV 8.1 (7.1-12.4) fL Neut % (Auto) 65.6 (30.8-76.2) % Lymph % (Auto) 22.0 (18.4-52.1) % [place] % (Auto) 8.9 (4.4-15.7) % Eos % (Auto) 2.5 (0.6-8.1) % Baso % (Auto) 1.0 (0.2-1.5) % Neut # (Auto) 6.4 H (1.5-6.3) x10-3/uL Lymph # (Auto) 2.2 (1.0-4.4) x10-3/uL [place] # (Auto) 0.9 (0.3-1.0) x10-3/uL Eos # (Auto) 0.2 (0.0-0.8) x10-3/uL Baso # (Auto) 0.1 (0.0-0.1) x10-3/uL Sodium 149 H (135-145) mmol/L Potassium 3.8 (3.5-5.3) mmol/L Chloride 113 H (100-110) mmol/L Carbon Dioxide 25 (21-32) mmol/L BUN 37 H (7-18) mg/dL Creatinine 1.1 H (0.55-1.02) mg/dL Est Cr Clr Drug Dosing 24.90 mL/min Estimated GFR (MDRD) 47 L (>60) BUN/Creatinine Ratio 33.6 H (9-20) Glucose 186 H (80-116) mg/dL Calcium 8.7 (8.6-10.2) mg/dL [facility] Results - Last 24 hrs: Microbiology 04/08/21 16:15 Urine Culture - Preliminary Urine, Catheterized Gram Positive Cocci Med Orders - Current: Current Medications Acetaminophen (Acetaminophen 325 Mg Tab) 650 mg PO BID [facility] Last Admin: 04/10/21 09:45 Dose: 650 mg Documented by: Acetaminophen (Acetaminophen 325 Mg Tab) 650 mg PO TID PRN PRN Reason: Pain/Fever Last Admin: 04/09/21 14:03 Dose: 650 mg Documented by: Apixaban (Apixaban 5 Mg Tab) 5 mg PO BID [facility] Last Admin: 04/10/21 09:42 Dose: 5 mg Documented by: Ascorbic Acid (Ascorbic Acid 500 Mg Tab) 500 mg PO BID [facility] Last Admin: 04/10/21 09:45 Dose: 500 mg Documented by: Docusate Sodium (Docusate Sodium 100 Mg Cap) 100 mg PO BID [facility] Last Admin: 04/10/21 09:42 Dose: 100 mg Documented by: Escitalopram Oxalate (Escitalopram 10 Mg Tab) 10 mg PO DAILY [facility] Last Admin: 04/10/21 09:43 Dose: 10 mg Documented by: Sodium Chloride (Normal Saline) 1,000 mls @ 75 mls/hr IV ASDIRECTED [facility] Lactobacillus Rhamnosus (Lactobacillus Rhamnosus Gg (Probiotic) Cap) 1 cap PO DAILY [facility] Last Admin: 04/10/21 09:42 Dose: 1 cap Documented by: Latanoprost (Latanoprost 0.005% Ophth Soln 2.5 Ml Bottle) 0 ml EYEBOTH BEDTIME [facility] Last Admin: 04/09/21 20:09 Dose: 1 drop Documented by: Magnesium Hydroxide (Magnesium Hydroxide 400 Mg/5 Ml Susp 30 Ml Cup) 30 ml PO DAILY PRN PRN Reason: Constipation Melatonin (Melatonin 3 Mg Tab) 3 mg PO BEDTIME [facility] Last Admin: 04/09/21 20:04 Dose: 3 mg Documented by: Metoprolol Tartrate (Metoprolol Tartrate 25 Mg Tab) 12.5 mg PO BID [facility] Last Admin: 04/10/21 09:43 Dose: 12.5 mg Documented by: Ondansetron HCl (Ondansetron 4 Mg Tab.Dis) 4 mg PO Q4H PRN PRN Reason: nausea, able to take PO Pantoprazole Sodium (Pantoprazole 40 Mg Tab.Cr) 40 mg PO 0600 [facility] Last Admin: 04/10/21 05:22 Dose: 40 mg Documented by: Polyethylene Glycol (Polyethylene Glycol 3350 Powder 17 Gm Packet) 17 gm PO DAILY PRN PRN Reason: Constipation Propylene Glycol (Peg 400/Propylene Glycol Ophth Soln 15 Ml Bottle) 0 ml EYEBOTH BID [facility] Last Admin: 04/10/21 09:41 Dose: 1 drop Documented by: Sodium Chloride (Sodium Chloride 0.9% 10 Ml Syringe) 10 ml FLUSH ASDIRECTED PRN PRN Reason: Keep Vein Open Last Admin: 04/09/21 18:46 Dose: 10 ml Documented by: Sodium Chloride (Sodium Chloride 0.65% Nasal [place] 45 Ml Bottle) 0 ml NASBOTH TID PRN PRN Reason: epistaxis Discontinued Medications Ceftriaxone Sodium (Ceftriaxone 1 Gm Vial) 1 gm IVPUSH Q24H [facility] Last Admin: 04/09/21 18:48 Dose: 1 gm Documented by: Enoxaparin Sodium (Enoxaparin 30 Mg/0.3 Ml Syringe) 30 mg SUBCUT Q24H [facility] Sodium Chloride (Sodium Chloride 0.45%) 1,000 mls @ 125 mls/hr IV ASDIRECTED [facility] Last Admin: 04/08/21 16:03 Dose: 125 mls/hr Documented by: Ceftriaxone Sodium 1 gm/ (Sodium Chloride) 50 mls @ 200 mls/hr IV Q24H [facility] Last Admin: 04/08/21 18:39 Dose: 200 mls/hr Documented by: Comments:: Patient is slightly more alert but still will not wiggle her right toes - Exam Quality Assessment: Reports: Supplemental Oxygen, DVT Prophylaxis General: Reports: Alert, Cooperative, Lethargic Neck: Reports: Supple Lungs: Reports: Crackles Cardiovascular: Reports: Regular Rate, Regular Rhythm GI/Abdominal Exam: Normal Bowel Sounds, Non-Tender Back Exam: Reports: Normal Inspection Extremities: Pedal Edema Skin: Reports: Moist Neurological: Reports: No New Focal Deficit Psy/Mental Status: Reports: Alert
[2021-04-10 14:16] VITALS: BP 154/86; PULSE 89
== END 2021-04-10 11:40 | DRG 690 ==
LOC: FB.MS 14:12
PROVIDERS: ADMIT Student in an Organized Health Care Education/Training Program; ATTEND Student in an Organized Health Care Education/Training Program
DX: N30.01 Acute cystitis with hematuria (principal); I50.32 Chronic diastolic (congestive) heart failure; I13.0 Hypertensive heart and chronic kidney disease with heart failure and stage 1 through stage 4 chronic kidney disease, or unspecified chronic kidney disease; Z51.5 Encounter for palliative care; E11.9 Type 2 diabetes mellitus without complications; Z85.51 Personal history of malignant neoplasm of bladder; Z85.3 Personal history of malignant neoplasm of breast; E78.5 Hyperlipidemia, unspecified; Z86.711 Personal history of pulmonary embolism; Z79.01 Long term (current) use of anticoagulants; Z86.73 Personal history of transient ischemic attack (TIA), and cerebral infarction without residual deficits; Z79.899 Other long term (current) drug therapy; H54.7 Unspecified visual loss; H04.129 Dry eye syndrome of unspecified lacrimal gland; Z87.01 Personal history of pneumonia (recurrent); K59.09 Other constipation; K44.9 Diaphragmatic hernia without obstruction or gangrene; E78.00 Pure hypercholesterolemia, unspecified; R33.9 Retention of urine, unspecified; N18.2 Chronic kidney disease, stage 2 (mild); M19.90 Unspecified osteoarthritis, unspecified site; E11.22 Type 2 diabetes mellitus with diabetic chronic kidney disease; E66.9 Obesity, unspecified; E55.9 Vitamin D deficiency, unspecified; Z98.49 Cataract extraction status, unspecified eye; Z90.12 Acquired absence of left breast and nipple; E86.0 Dehydration; Z68.34 Body mass index [BMI] 34.0-34.9, adult
CPT/HCPCS: 36415; 51701; 80048; 80053; 81001; 84484; 85025; 87086; 93005; A9270-GY; J0696; J3490